=== PATIENT | male | born 1950 | race Two or more races ===

== ENCOUNTER 2018-04-09 05:37 | Inpatient (IN) | payer MEDICARE, MEDICAID ==
[~2018-04-09] VITALS: Ht 167.6 cm; Wt 54.4 kg
--- NOTE | 2018-04-09 05:40 | NUR ---
PT [id number] FROM [facility], STATES PT IS MORE ALTERED THAN NORMAL W/ HIGH FEVER. NO MEDS GIVEN AT FACILITY. PT IS INTUBATED AND ON OXYGEN, O2 SAT 96. PT IS NONRESPONSIVE. PT HAS GT TUBE AND STEELE CATHETER ON ARRIVAL. PT ATTEMPTING TO BITE UPPER EXTREMITIES, MULTIPLE SMALL ABRASIONS. PT IN GOWN AND PLACED ON MONITOR. WAITING MD EVALUATION
[2018-04-09] MEDS ORDERED: CEFTRIAXONE 1GM BAG (ER ONLY) 50 ML IV ONE (06:00)
--- NOTE | 2018-04-09 06:00 | NUR ---
MD AT BEDSIDE FOR EVALUATION
--- NOTE | 2018-04-09 06:10 | NUR ---
IV INITIATED ON RIGHT AC 18G. INTACT AND PATENT. LABS DRAWN FROM SITE. URINE COLLECTED. LAB CALLED FOR DISPERSION MIXER
[2018-04-09] MEDS ORDERED: CEFTRIAXONE 1 G VIAL ONE (06:25)
[2018-04-09 06:30] LABS: BASOPHILS % (AUTO) 0.3 % (0.0-2.0); HEMATOCRIT 33 % (39-51); HEMOGLOBIN 10.7 g/dL (13.5-17.5); LYMPHOCYTES % (AUTO) 18.8 % (20.0-44.0); MEAN CORPUSCULAR HGB CONC 33 g/dl (31.0-36.0); MEAN CORPUSCULAR VOLUME 104 fL (80-96); MONOCYTES # (AUTO) 0.7 /CMM (0.1-1.30); NEUTROPHILS % (AUTO) 73.9 % (43.0-81.0); PLATELET COUNT (AUTO) 127 /CMM (150-450); RDW COEFFICIENT OF VARIATION 20.2 (11.5-15.0); RED BLOOD CELL COUNT(AUTO) 3.15 MIL/uL (4.5-6.0); WHITE BLOOD COUNT (AUTO) 10.9 K/uL (4.3-11.0)
[2018-04-09] MEDS ORDERED: IV NS 0.9% 1,000 ML BAG IV ONE ×2 (06:30→07:30)
[2018-04-09 06:37] LABS: APPEARANCE,URINE CLOUDY (CLEAR); BILIRUBIN,URINE NEGATIVE (NEGATIVE); BLOOD, URINE 3+ Ery/uL (NEGATIVE); COLOR,URINE YELLOW (YELLOW); KETONES,URINE NEGATIVE (NEGATIVE); LEUKOCYTE ESTERASE ,URINE 3+ (NEGATIVE); NITRITE, URINE NEGATIVE (NEGATIVE); PROTEIN,URINE 2+ mg/dl (NEGATIVE); UGLUCOSE NEGATIVE (NEGATIVE); UROBILINOGEN,URINE 0.2 EU/dL (0.2)
[2018-04-09 06:41] LABS: CALCIUM, SERUM 9.8 mg/dL (8.5-10.1); CARBON DIOXIDE 24 mmol/L (21-32); CHLORIDE 106 mmol/L (98-107); CREATININE 1.8 mg/dL (0.6-1.3); GLUCOSE 136 mg/dL (74-106); POTASSIUM 4.5 mmol/L (3.5-5.1); SODIUM SERUM 140 mmol/L (136-145); UREA NITROGEN, BLOOD 34 mg/dL (7-18)
[2018-04-09 06:47] LABS: WBC,URINE 51-80 /HPF (0-3)
[2018-04-09 06:48] LABS: CALCIUM OXALATE CRYSTALS,UR Rare /HPF (None Seen); SQUAMOUS EPITHELIAL CELL,UR Rare /HPF (None Seen)
[2018-04-09 06:49] LABS: BACTERIA,URINE Moderate /HPF (None Seen)
[2018-04-09 06:53] LABS: INR 1.24 (0.87-1.13)
[2018-04-09 06:58] LABS: ALANINE AMINOTRANSFERASE 15 U/L (12-78); ALBUMIN 2.3 g/dL (3.4-5.0); ALKALINE PHOSPHATASE 142 U/L (46-116); ASPARTATE AMINOTRANSFERASE 25 U/L (15-37); BILIRUBIN,DIRECT 0.3 mg/dL (0.0-0.2); BILIRUBIN,TOTAL 0.8 mg/dL (0.2-1.0); TOTAL PROTEIN, SERUM 9.5 g/dL (6.4-8.2)
--- NOTE | 2018-04-09 07:18 | NUR ---
PT HYPOTENSIVE. MD AWARE
--- NOTE | 2018-04-09 07:22 | NUR ---
GAVE REPORT TO FEDERICO LE FOR LEENA
[2018-04-09 07:24] LABS: B-TYPE NATRIURETIC PEPTIDE 33948 PG/ML (0-125)
--- NOTE | 2018-04-09 07:30 | NUR ---
CALLED NURSING SUP FOR ROD BED.
--- NOTE | 2018-04-09 07:58 | NUR ---
ROD BED 110
[2018-04-09] MEDS ORDERED: LEVOFLOXACIN 750 MG /D5W 150ML 150 ML IV ONE ×2 (08:00→08:11)
--- NOTE | 2018-04-09 08:24 | NUR ---
REPORT GIVEN TO JASWANT LE FOR CONTINUATION OF CARE.
--- NOTE | 2018-04-09 08:30 | NUR ---
PATIENT TRANSPORTED TO 110 VIA ACLS PROTOCOL. RNJASWANT TO PROVIDE LEENA.
[2018-04-09 08:40] VITALS: BP 127/68
--- NOTE | 2018-04-09 08:40 | NUR ---
RN NOTES RECEIVED PT FROM ER IN ROOM 110, WITH TRACHEOSTOME , ON COOL AEROSOL , NON VERBAL ,RESTLESS , PULLING ON IV'S AND GT, DANILO SOFT WRIST PROTECTIVE RESTRAINS ON FOR PT SAFETY. RESPIRATION LABORED AND SHALLOW , DR HOLLIS NOTIFED, ABG ORDERED ,TRACH CARE DONE, O2 SAT 98%, ON TELE ST , HR IN 100'S , STEELE DRINING TO GRAVITY , ADMISSION SKIN AND WOUND PHOTO DONE, WOUND CONSULT ORDERED, GT CLAMPED AT THIS TIME, R AC IV SITE G 18 CLEAN AND DRY , SR UP x3, CALL LIGHT WITHIN EASY REACH, BED LOCKED AND IN LOWEST POSITION ,CONTINUE TO MONITOR.
[2018-04-09 09:00] VITALS: BP 127/68
[2018-04-09 10:09] LABS: ABG BASE EXCESS -6.8 mmol/L; ABG OXYGEN SATURATION 98.3 % (92.0-98.5); ABG PO2 145.3 mmHg (75.0-100.0); AaDO2 69.4 mmHg; COHb 0.5 % (0.5-1.5); MetHb 0.5 % (0.0-1.5); O2Hb 97.3 % (94.0-97.0); VENT MODE, BG 35% CA
[2018-04-09] MEDS ORDERED: MAGNESIUM HYDROXIDE 30 ML UDC PO PRN (10:30)
[2018-04-09] MEDS ORDERED: ZOLPIDEM TARTRATE 5 MG TABLET PO PRN (10:30)
[2018-04-09] MEDS ORDERED: ONDANSETRON HCL/PF 4 MG/2 ML VIAL IVP PRN (10:30)
[2018-04-09] MEDS ORDERED: Z GUARD REMEDY 2 OZ OINT TP PRN (10:30)
[2018-04-09] MEDS ORDERED: MAG HYDROX/AL HYDROX/SIMETH 30 ML UDC PO PRN (10:30)
[2018-04-09] MEDS ORDERED: ACETAMINOPHEN 325 MG TABLET PO PRN (10:30)
[2018-04-09] MEDS: IPRATROPIUM NEB FS 0.5 MG/2.5 ML AMPUL.NEB NEB SCH ×3 (10:35→19:50)
[2018-04-09] MEDS: ALBUTEROL HALF STRENGTH 1.25 MG/3 ML VIAL.NEB NEB SCH ×3 (10:35→19:50)
--- NOTE | 2018-04-09 10:40 | NUR ---
RT RECEIVED PT FROM ER TRACH ON CA 35% FIO2. SX WITH MOD TO LRG THK WAGNER SECRETIONS. ABG WAS DONE AND RELAYED RESULTS TO DR. HOLLIS AND RN DAE. PER MD, PLACED PT ON FIO2 OF 28%. INITIAL BREATHING TX WAS ORDERED AND GIVEN. PT TOLERATING CURRENT THERAPY. WILL CONTINUE TO MONITOR T/O SHIFT.
[2018-04-09] MEDS: IV NS 0.9% 1,000 ML IV PRN ×2 (11:21→20:00)
--- NOTE | 2018-04-09 11:30 | NUR ---
RN NOTES PT IS RESTLESS , HR IN 130'S, DR SANTO NOTIFED , EKG AND ATIVAN ORDERED.
[2018-04-09] MEDS: HYDROCODONE/APAP 5/325MG 1 EACH TABLET PO PRN (11:35)
[2018-04-09 12:00] VITALS: BP 141/99
[2018-04-09] MEDS ORDERED: LORAZEPAM INJ 2 MG/ML VIAL IV ONE (12:00)
[2018-04-09 16:00] VITALS: BP 102/54
--- NOTE | 2018-04-09 18:34 | NUR ---
RN NOTES NO DISTESS NOTED AT THIS TIME, HR IN 80'S , SR UP x3 CALL LIGHT WITHIN EASY REACH, STEELE DRINING TO GRAVITY, WILL ENDOSE TO INSTRUMENT WORKER NURSE FOR CONTINUITY OF CARE .
--- NOTE | 2018-04-09 19:35 | NUR ---
ROD RN NOTE PT RECEIVED IN BED SLEEPING. NOTED SLIGHTLY LETHARGIC BUT VERY RESTLESS. TRACH IN PLACE AND ON COOL AEROSOL SATURATING WELL. HOB ELEVATED. GT CLAMPED. ISOLATION PRECAUTIONS OBSERVED. ON ASPIRATION PRECAUTIONS. BILATERAL SOFT WRIST RESTRAINTS IN PLACE AND SECURED TO BED. CAP REFILL CHECKED AND CIRCULATION. WILL CONTINUE TO MONITOR.
[2018-04-09 20:00] VITALS: BP 104/53
--- NOTE | 2018-04-09 20:00 | NUR ---
RCVD PT ON COOL AEROSOL 28% 5L. Q6 BREATHING TX GIVEN , NO ADVERSE REACTION NOTED. SUCTIONED LARGE AMOUNT OF WAGNER THICK SECRETIONS. NO RESPIRATORY DISTRESS NOTED AT THIS TIME. WILL CONTINUE TO MONITOR.
[2018-04-10] VITALS: BP 123/61
[2018-04-10] MEDS: IPRATROPIUM NEB FS 0.5 MG/2.5 ML AMPUL.NEB NEB SCH ×4 (01:46→20:16)
[2018-04-10] MEDS: ALBUTEROL HALF STRENGTH 1.25 MG/3 ML VIAL.NEB NEB SCH ×4 (01:46→20:16)
[2018-04-10 04:00] VITALS: BP 140/68
[2018-04-10] MEDS: CEFTRIAXONE 1 G in IV D5W 50 ML IV SCH (05:02)
[2018-04-10] MEDS: HYDROCODONE/APAP 5/325MG 1 EACH TABLET PO PRN ×2 (05:03→12:02)
[2018-04-10] MEDS: IV NS 0.9% 1,000 ML IV PRN ×2 (06:03→17:13)
[2018-04-10 06:43] LABS: CALCIUM, SERUM 8.8 mg/dL (8.5-10.1); CREATININE 1.6 mg/dL (0.6-1.3); MAGNESIUM 1.9 mg/dL (1.8-2.4); PHOSPHORUS 2.8 mg/dL (2.5-4.9); POTASSIUM 3.8 mmol/L (3.5-5.1)
--- NOTE | 2018-04-10 07:00 | NUR ---
ROD RN INITIAL NOTES PT IN BED AWAKE, WITH STAGGERED BREATHING AND RESTLESS. ON 5L O2 COOL AEROSOL VIA TRACH. PT IS ON SOFT RESTRAINTS AND ATTEMPTING TO PULL AT LINES. ON TELE SR 92. IVF RUNNING THRU R AC WITH NO/SX OF INFECTION AT IV SITE. 300CC OF YELLOW CLEAR URINE DRAINING THRU F/C. SAFETY PRECAUTIONS IN PLACE. CALL LIGHT IN REACH. WILL CONT TO MONITOR.
[2018-04-10 07:04] LABS: BASOPHILS # (AUTO) 0.1 /CMM (0.0-0.2); BASOPHILS % (AUTO) 1.6 % (0.0-2.0); EOSINOPHILS % (AUTO) 2.2 % (0.0-6.0); HEMATOCRIT 26 % (39-51); HEMOGLOBIN 8.9 g/dL (13.5-17.5); LYMPHOCYTES % (AUTO) 22.2 % (20.0-44.0); MEAN CORPUSCULAR HGB CONC 34 g/dl (31.0-36.0); MEAN CORPUSCULAR VOLUME 102 fL (80-96); MONOCYTES # (AUTO) 0.4 /CMM (0.1-1.30); MONOCYTES % (AUTO) 9.1 % (2.0-12.0); NEUTROPHILS # (AUTO) 2.8 /CMM (1.8-8.9); NEUTROPHILS % (AUTO) 64.9 % (43.0-81.0); PLATELET COUNT (AUTO) 53 /CMM (150-450); RDW COEFFICIENT OF VARIATION 18.2 (11.5-15.0); RED BLOOD CELL COUNT(AUTO) 2.54 MIL/uL (4.5-6.0); WHITE BLOOD COUNT (AUTO) 4.4 K/uL (4.3-11.0)
--- NOTE | 2018-04-10 07:07 | NUR ---
ROD RN NOTE PT REMAINED STABLE DURING SHIFT. NO ACUTE DISTRESS NOTED. PT REMAINED RESTLESS AND AGITATED. BILATERAL SOFT WRIST RESTRAINTS REMAIN IN PLACE. RADIAL PULSES PALPABLE AND NO DISCOLORATION NOTED. ALL NEEDS ATTENDED TO PROMPTLY. SUCTIONED NEEDED. REPOSITIONED Q2H. PT BIT LIP AND NOTED WITH SLIGHT BLEEDING. ORAL CARE PERFORMED AND HOB ELEVATED. WILL ENDORSE TO NEXT SHIFT FOR CONTINUITY OF CARE.
[2018-04-10 08:00] VITALS: BP 149/83
[2018-04-10] MEDS: PANTOPRAZOLE 40 MG VIAL IV SCH (08:22)
--- NOTE | 2018-04-10 09:00 | NUR ---
COLLISION ESTIMATOR NOTES SPOKE WITH DR CELESTE. PT IS RESTLESS AND TACHYCARDIC. NO SEDATIVES PER
[2018-04-10] MEDS ORDERED: PANT40SU2 GT (09:37)
[2018-04-10] MEDS ORDERED: METO25TA6 GT (09:37)
[2018-04-10] MEDS ORDERED: BUSP10TA35 GT (09:37)
[2018-04-10] MEDS ORDERED: CRAN3875 GT (09:37)
[2018-04-10] MEDS ORDERED: INSU100V27 SQ (09:37)
[2018-04-10] MEDS ORDERED: SITA50TA GT (09:37)
[2018-04-10] MEDS ORDERED: ASCO500T9 GT (09:37)
[2018-04-10] MEDS ORDERED: AMIN30LI2 GT (09:37)
[2018-04-10] MEDS ORDERED: MULT-213 GT (09:37)
[2018-04-10] MEDS ORDERED: INSU100I30 SQ (09:37)
[2018-04-10] MEDS ORDERED: BACL10TA GT (09:37)
[2018-04-10] MEDS ORDERED: DOCU50LI GT (09:37)
[2018-04-10] MEDS ORDERED: AMLO5TAB7 GT (09:37)
[2018-04-10] MEDS ORDERED: ALPR0.25 PO (09:37)
[2018-04-10 10:46] LABS: BAND % (MANUAL) 2 % (0.0-5.0); LYMPHOCYTES % (MANUAL) 16 % (16-48); MONOCYTES % (MANUAL) 8 % (0-11.0); NEUTROPHILS % (MANUAL) 74 (42-76)
[2018-04-10 12:00] VITALS: BP 104/70
[2018-04-10 12:38] LABS: FREE PSA < 0.06 ng/mL (0.00-45); PROSTATE SPECIFIC ANTIGEN SCR 0.69 ng/mL (0.00-4.00)
[2018-04-10] MEDS: FLUCONAZOLE IN NS 100 MG in PREMIX 1 EA IV SCH ×2 (13:15)
[2018-04-10] MEDS: GLUCERNA 1.2 1,000 ML BOTTLE NG PRN (14:48)
[2018-04-10 16:00] VITALS: BP_SYST 104; BP_SYST 147; BP_DIAS 70; BP_DIAS 80
--- NOTE | 2018-04-10 16:04 | NUR ---
WEBLOGIC DEVELOPER NOTES [facility] REPORTED + MRSA NARES
--- NOTE | 2018-04-10 18:00 | NUR ---
RN NOTES NO SIGNIFICANT CHANGES NOTED ON THIS SHIFT, TOLERATING TF AT 20 CC/ HR VIA GT , WILL ENDORSE TO MECHATRONICS ENGINEER NURSE FOR CONTINUITY OF CARE
[2018-04-10 20:00] VITALS: BP 172/84
[2018-04-10] MEDS: MUPIROCIN OINT 2% 22 GM TUBE SCH (21:17)
[2018-04-11] VITALS: BP_SYST 149; BP_SYST 172; BP_DIAS 83; BP_DIAS 84
[2018-04-11] MEDS: HYDROCODONE/APAP 5/325MG 1 EACH TABLET PO PRN (00:52)
[2018-04-11] MEDS: IPRATROPIUM NEB FS 0.5 MG/2.5 ML AMPUL.NEB NEB SCH ×4 (02:19→20:08)
[2018-04-11] MEDS: ALBUTEROL HALF STRENGTH 1.25 MG/3 ML VIAL.NEB NEB SCH ×4 (02:19→20:08)
[2018-04-11 04:00] VITALS: BP 146/79
[2018-04-11] MEDS: CEFTRIAXONE 1 G in IV D5W 50 ML IV SCH (05:59)
[2018-04-11] MEDS: IV NS 0.9% 1,000 ML IV PRN ×2 (06:00→14:20)
--- NOTE | 2018-04-11 06:36 | NUR ---
RN NOTE PT REMAINS IN NO ACUTE DISTRESS IN BED. PT TOLERATED COOL AEROSOL SETTING WELL. PT DID NOT HAVE ANY SIGNIFICANT CHANGE IN CONDITION DURING SHIFT. ALL NEEDS MET, ALL ORDERS CARRIED OUT. WILL ENDORSE CARE TO AM RN FOR CONTINUITY OF CARE..
[2018-04-11 06:45] LABS: BASOPHILS % (AUTO) 0.6 % (0.0-2.0); EOSINOPHILS % (AUTO) 3.6 % (0.0-6.0); HEMATOCRIT 26 % (39-51); HEMOGLOBIN 8.5 g/dL (13.5-17.5); LYMPHOCYTES # (AUTO) 0.8 /CMM (0.8-4.8); LYMPHOCYTES % (AUTO) 18.3 % (20.0-44.0); MEAN CORPUSCULAR HGB CONC 33 g/dl (31.0-36.0); MEAN CORPUSCULAR VOLUME 104 fL (80-96); MONOCYTES # (AUTO) 0.5 /CMM (0.1-1.30); MONOCYTES % (AUTO) 11.7 % (2.0-12.0); NEUTROPHILS % (AUTO) 65.8 % (43.0-81.0); RDW COEFFICIENT OF VARIATION 19.7 (11.5-15.0); RED BLOOD CELL COUNT(AUTO) 2.48 MIL/uL (4.5-6.0); WHITE BLOOD COUNT (AUTO) 4.6 K/uL (4.3-11.0)
[2018-04-11 07:12] LABS: CALCIUM, SERUM 8.5 mg/dL (8.5-10.1); CREATININE 1.5 mg/dL (0.6-1.3); MAGNESIUM 1.8 mg/dL (1.8-2.4); PHOSPHORUS 2.8 mg/dL (2.5-4.9); POTASSIUM 3.3 mmol/L (3.5-5.1)
--- NOTE | 2018-04-11 07:15 | NUR ---
RN ROD INITIAL NOTES RECEIVED REPORT AND PATIENT FROM PM NURSE, PATIENT RESTING IN BED WITH NO ACUTE DISTRESS NOTED, ALL NEEDS MET, ALL SAFETY MEASURES INITIATED, ON TELE MON SR WITH HEART RATE 86 WITH OCC PVCS, OBTUNDED EYES OPEN AT TIMES, MOANS AND MUMBLES AT TIMES, TRACH COOL AEROSOL MD ORDERED SAT ABOVE 97%, NO SOB, STEELE CATH DRAINING URINE VIA GRAVITY, GTUBE FEEDING MD ORDERED NO RESIDUAL TOLERATING WELL, LT UPPER IV RIGHT ACC IV ALL INTACT AND PATENT NO INFILTRATION NOTED, ALL SAFETY MEASURES INITIATED, WILL CONTINUE TO MONITOR.
[2018-04-11 07:36] LABS: PLATELET COUNT (AUTO) 45 /CMM (150-450)
[2018-04-11 08:00] VITALS: BP_SYST 130; BP_SYST 138; BP_DIAS 85
[2018-04-11] MEDS: PANTOPRAZOLE 40 MG VIAL IV SCH (08:57)
[2018-04-11] MEDS: MUPIROCIN OINT 2% 22 GM TUBE SCH ×2 (08:59→20:55)
--- NOTE | 2018-04-11 09:10 | NUR ---
RN ROD NOTES UNABLE TO GET PATIENT TO STAY FLAT AND STILL TO DO CT OF HEAD AND ALSO PER MD NOTES TO LIMIT SEDATING MEDS WHERE POSSIBLE, WILL NOTIFY MD THAT IF PATIENT CANNOT HAVE SEDATING MEDS AND LAY FLAT AND STILL THEN CANNOT DO HEAD CT W/O CONTRAST.
--- NOTE | 2018-04-11 09:35 | NUR ---
RN ROD NOTES SPOKE WITH DR PETERSEN AND STATED HOLD OFF ON HEAD CT W/O CONTRAST AT THIS TIME SINCE PATIENT CANNOT LAY FLAT AND STAY STILL, WILL ASSESS LATER TO SEE IF PATIENT ABLE TO TOLERATE.
[2018-04-11] MEDS ORDERED: POTASSIUM CL. PREMIX PERIPHER. 50 ML IV SCH (09:45)
[2018-04-11 09:50] LABS: EOSINOPHILS % (MANUAL) 4 % (0-4); LYMPHOCYTES % (MANUAL) 14 % (16-48); MONOCYTES % (MANUAL) 12 % (0-11.0); NEUTROPHILS % (MANUAL) 70 (42-76)
[2018-04-11] MEDS ORDERED: POTASSIUM CHLORIDE 20 MEQ POWDER PACKET GT SCH (10:00)
[2018-04-11 12:00] VITALS: BP 144/78
--- NOTE | 2018-04-11 12:40 | NUR ---
WOUND CARE CONSULT: PT PRESENTS WITH DEEP TISSUE INJURIES (INTACT) TO RT BUTTOCK AND SACRUM WITH SURROUNDING SCARRING, AND SKIN TEARS TO ARMS, PRESENT ON ADMISSION. LEFT HIP SCARRING NOTED. PT IS EXTREMELY CONTRACTED WITH L KNEE NEAR FACE AND RT HEEL NEAR BUTTOCKS. ALL SKIN PROTECTION AND WOUND CARE RECOMMENDATIONS DISCUSSED WITH NURSING STAFF. DARRELL ISOFLEX LOW AIRLOSS BED TO BE PLACED. PT NOTED TO HAVE HUGE ABDOMINAL HERNIA AND G TUBE NOTED TO BE LEAKING. DEFER TO MD. WILL SEE PRN. IN AGREEMENT WITH PLAN OF CARE. CURRENT DEMARCUS SCORE IS 11. Addendum: 04/11/18 at 1243 by ASHLEY ALVAREZ WNDNU Amended: Links added.
--- NOTE | 2018-04-11 12:44 | NUR ---
RN ROD NOTES PATEINTS GTUBE SITE IS LEAKING TREMENDOUS AMOUNT OF YELLOW FLUID, CALLED DR SIFUENTES AND STATED NEEDS GI CONSULT, STOPPED FEEDINGS MD ORDERED, WILL ORDER GI CONSULT, WILL CONTINUE TO MONITOR.
[2018-04-11] MEDS: FLUCONAZOLE IN NS 100 MG in PREMIX 1 EA IV SCH ×2 (13:03)
[2018-04-11] MEDS: MEROPENEM 500 MG in IV NS 0.9% 50 ML IV SCH (14:21)
--- NOTE | 2018-04-11 14:48 | NUR ---
RN ROD NOTES SPOKE WITH PHARMACY AND NEEDS MD TO DO HOME MEDICATION RECONCILIATION, SPOKE WITH DR SIFUENTES AND STATED HE WILL DO IT, PLACED HOME MEDS LIST INSIDE CHART.
--- NOTE | 2018-04-11 14:49 | NUR ---
RN ROD NOTES SINCE PATEINTS GTUBE IS LEAKING WILL PLACE PATIENT ON NPO AT THIS TIME, AWAITING GI CONSULT ORDER.
[2018-04-11 16:00] VITALS: BP_SYST 143; BP_DIAS 75; BP_DIAS 86
[2018-04-11 16:16] LABS: *SPE A/G RATIO 0.5 (0.7-1.7); *SPE ALBUMIN 2.5 g/dL (2.9-4.4); *SPE ALPHA-1-GLOBULIN 0.2 g/dL (0.0-0.4); *SPE ALPHA-2-GLOBULIN 0.3 g/dL (0.4-1.0); *SPE BETA GLOBULIN 0.9 g/dL (0.7-1.3); *SPE GLOBULIN, TOTAL 5.1 g/dL (2.2-3.9); *SPE M-SPIKE Not Observed g/dL (Not Observed); *SPEGAMMA GLOBULIN 3.6 g/dL (0.4-1.8)
--- NOTE | 2018-04-11 18:27 | NUR ---
RN ROD ENDING NOTES PATEINT RESTING IN BED WITH NO ACUTE DISTRESS,ALL NEEDS MET, ALL SAFETY MEASURES INITIATED, BED BATH PROVIDED, NPO AT THIS TIME SINCE GTUBE IS LEAKING, GI CONSULT ORDERED, WOUND TX PROVIDED MD ORDERED, ALL DUE MEDS GIVEN, PT STABLE WILL ENDORSE TO PM NURSE.
[2018-04-11 20:00] VITALS: BP_SYST 151; BP_SYST 91; BP_DIAS 59; BP_DIAS 85
[2018-04-12] VITALS: BP 149/83
[2018-04-12] MEDS: ALBUTEROL HALF STRENGTH 1.25 MG/3 ML VIAL.NEB NEB SCH ×4 (01:51→19:44)
[2018-04-12] MEDS: IPRATROPIUM NEB FS 0.5 MG/2.5 ML AMPUL.NEB NEB SCH ×4 (01:51→19:44)
[2018-04-12] MEDS: MEROPENEM 500 MG in IV NS 0.9% 50 ML IV SCH ×2 (03:17→15:16)
[2018-04-12 04:00] VITALS: BP 135/77
[2018-04-12 06:42] LABS: CALCIUM, SERUM 8.4 mg/dL (8.5-10.1); CREATININE 1.5 mg/dL (0.6-1.3); MAGNESIUM 1.6 mg/dL (1.8-2.4); PHOSPHORUS 2.3 mg/dL (2.5-4.9); POTASSIUM 3.6 mmol/L (3.5-5.1)
[2018-04-12 07:22] LABS: HEMATOCRIT 25 % (39-51); HEMOGLOBIN 8.4 g/dL (13.5-17.5); MEAN CORPUSCULAR HGB CONC 33 g/dl (31.0-36.0); MEAN CORPUSCULAR VOLUME 105 fL (80-96)
[2018-04-12 07:23] LABS: RDW COEFFICIENT OF VARIATION 19.4 (11.5-15.0)
[2018-04-12 07:25] LABS: BASOPHILS % (AUTO) 0.4 % (0.0-2.0); EOSINOPHILS % (AUTO) 0.8 % (0.0-6.0); LYMPHOCYTES # (AUTO) 0.8 /CMM (0.8-4.8); LYMPHOCYTES % (AUTO) 9.4 % (20.0-44.0); MONOCYTES # (AUTO) 0.5 /CMM (0.1-1.30); NEUTROPHILS # (AUTO) 6.7 /CMM (1.8-8.9); NEUTROPHILS % (AUTO) 83.4 % (43.0-81.0); PLATELET COUNT (AUTO) 41 /CMM (150-450)
[2018-04-12 08:00] VITALS: BP 131/70
[2018-04-12] MEDS: GLUCERNA 1.2 1,000 ML BOTTLE NG PRN (10:00)
[2018-04-12] MEDS: MUPIROCIN OINT 2% 22 GM TUBE SCH ×2 (10:00→22:37)
[2018-04-12] MEDS: PANTOPRAZOLE 40 MG VIAL IV SCH (10:00)
[2018-04-12] MEDS ORDERED: Magnesium 1GM/D5W 100ML PREMIX 100 ML IV SCH (10:16)
[2018-04-12 10:30] LABS: EOSINOPHILS % (MANUAL) 1 % (0-4); LYMPHOCYTES % (MANUAL) 5 % (16-48); MONOCYTES % (MANUAL) 7 % (0-11.0); NEUTROPHILS % (MANUAL) 87 (42-76)
[2018-04-12 12:00] VITALS: BP 130/70
[2018-04-12] MEDS: FLUCONAZOLE IN NS 100 MG in PREMIX 1 EA IV SCH ×2 (13:31)
[2018-04-12 16:00] VITALS: BP_SYST 134; BP_SYST 93; BP_DIAS 60; BP_DIAS 70
[2018-04-12] MEDS ORDERED: NEUTRA PHOS 1 POWD.PACKET GT ONE (16:00)
--- NOTE | 2018-04-12 19:15 | NUR ---
ROD NOTES RECEIVED PT.ON COOL AEROSOL 28%,SAT [id number]%.SUCTIONED FOR MODERATE THICK YELLOW TO PINK-TINGED SECRETIONS.ON TUBE FEEDING OF GLUCERNA AT 30 ML /HR WILL INC IN 4HRS TO 40ML/HR.
[2018-04-12 20:00] VITALS: BP 141/77
[2018-04-13] VITALS (7 sets, daily range): BP systolic 128–149; BP diastolic 45–74
--- NOTE | 2018-04-13 | NUR ---
ROD NOTES FEEDING INC TO 40ML/HR AND WILL ATTEMPT TO REACH GOAL OF 50ML/HR
[2018-04-13] MEDS: IPRATROPIUM NEB FS 0.5 MG/2.5 ML AMPUL.NEB NEB SCH ×4 (01:18→19:58)
[2018-04-13] MEDS: ALBUTEROL HALF STRENGTH 1.25 MG/3 ML VIAL.NEB NEB SCH ×4 (01:18→19:58)
[2018-04-13] MEDS: MEROPENEM 500 MG in IV NS 0.9% 50 ML IV SCH ×2 (03:09→15:58)
--- NOTE | 2018-04-13 06:00 | NUR ---
ROD NOTES TOLERATING TF WELL,NOW AT 50ML/HR GOAL
[2018-04-13 07:07] LABS: CALCIUM, SERUM 8.2 mg/dL (8.5-10.1); CREATININE 1.6 mg/dL (0.6-1.3); MAGNESIUM 1.8 mg/dL (1.8-2.4); PHOSPHORUS 2.6 mg/dL (2.5-4.9)
--- NOTE | 2018-04-13 07:30 | NUR ---
ROD RN OPENING NOTE RECEIVED REPORT FROM PM NURSE.PATIENT IS ALERT.ABLE TO MOUTH WORDS.ON COOL AEROSOL.NO SOB NO DISTRESS NOTED AT THIS TIME.DENIED CHEST PAIN.ON TELE MONITOR SR 83.IV ON JAIR ,INTACT AND PATENT.ONGOING 1/2NS WITH KCL AT 75CC/HR.ON GTF.STEELE CATH DARNING CLEAR YELLOW URINE.BED IS LOCKED AND IN LOW POSITION.CALL LIGHT IN REACH.HOB ELEVATED.SRX3.WILL CONTINUE TO MONITOR.
[2018-04-13 07:40] LABS: HEMOGLOBIN 8.1 g/dL (13.5-17.5); RED BLOOD CELL COUNT(AUTO) 2.27 MIL/uL (4.5-6.0); WHITE BLOOD COUNT (AUTO) 6.4 K/uL (4.3-11.0)
[2018-04-13 07:41] LABS: HEMATOCRIT 24 % (39-51); MEAN CORPUSCULAR HGB CONC 33 g/dl (31.0-36.0); MEAN CORPUSCULAR VOLUME 107 fL (80-96); RDW COEFFICIENT OF VARIATION 19.3 (11.5-15.0)
[2018-04-13 07:43] LABS: BASOPHILS % (AUTO) 0.4 % (0.0-2.0); EOSINOPHILS % (AUTO) 2.2 % (0.0-6.0); LYMPHOCYTES # (AUTO) 0.9 /CMM (0.8-4.8); LYMPHOCYTES % (AUTO) 13.8 % (20.0-44.0); MONOCYTES # (AUTO) 0.4 /CMM (0.1-1.30); MONOCYTES % (AUTO) 6.6 % (2.0-12.0); NEUTROPHILS # (AUTO) 4.9 /CMM (1.8-8.9); PLATELET COUNT (AUTO) 36 /CMM (150-450)
--- NOTE | 2018-04-13 08:00 | NUR ---
ROD RN NOTE GOT CALL FROM LAB ,GOT REPORT PLATELET 36.ARAMIS HAMILTON FOR JOSE SIFUENTES MADE AWARE.NO SIGNS AND SYMPTOMS OF BLEEDING NOTED.SEEN BY ARAMIS HAMILTON UPDATED ALL LABS AND PATIENT CONDITION.WILL CONTINUE TO MONITOR
[2018-04-13] MEDS: PANTOPRAZOLE 40 MG VIAL IV SCH (08:22)
[2018-04-13] MEDS: MUPIROCIN OINT 2% 22 GM TUBE SCH ×2 (08:23→21:13)
[2018-04-13] MEDS ORDERED: FLUCONAZOLE (100 MG) 100 MG TABLET PO SCH (09:00)
[2018-04-13 10:01] LABS: BAND % (MANUAL) 1 % (0.0-5.0); EOSINOPHILS % (MANUAL) 2 % (0-4); LYMPHOCYTES % (MANUAL) 10 % (16-48); MONOCYTES % (MANUAL) 1 % (0-11.0); NEUTROPHILS % (MANUAL) 86 (42-76)
[2018-04-13] MEDS ORDERED: MERO500V3 IV (10:52)
[2018-04-13] MEDS ORDERED: FLUC200T GT (10:52)
--- NOTE | 2018-04-13 11:27 | NUR ---
METAL ROLLING MILL OPERATOR NOTES GOT CALL FROM [facility] ,SPOKE TO MARIAMDEENA NOTIFIED POSITIVE BLOOD CULTURE,CRE POSITIVE,K.PNEUMONIAE. AWARE.WAITING FOR ID CONSULT. Addendum: 04/13/18 at 1942 by YULIANA COSBY RN RDO STATUS
[2018-04-13] MEDS: HYDROCODONE/APAP 5/325MG 1 EACH TABLET PO PRN (12:33)
--- NOTE | 2018-04-13 17:00 | NUR ---
BOTTOM CRANE OPERATOR NOTE SEEN BY .NOTIFIED PATIENT CONDITION AND LABS.POSITIVE CRE.GOT NEW ORDERS.GOT NEW ORDER TO CALL MICROBIOLOGY AND TEST SENSITIVITY TO COLISTIMETHATE.CALL MADE TO SHRUTHIPrashant SPOKE TO CHRISTINE,TOLD THAT MICROBIOLOGY CLOSED TODAY.SHE WILL ENDORSE TO UPCOMING SHIFT.JOSE GRACIA MADE AWARE.HOLDING DISCHARGE ORDER. Addendum: 04/13/18 at 1942 by YULIANA COSBY RN ROD STATUS
[2018-04-13] MEDS: COLISTIMETHATE SODIUM 100 MG in IV NS 0.9% 50 ML IV SCH (18:40)
--- NOTE | 2018-04-13 19:34 | NUR ---
TD RN NOTES RECEIVED PT ON BED,A/O X1. OBTUNDED. ON COOL AEROSOL 5LPM SATURATING 100%. NO RESPIRATORY DISTRESS NOTED. ON GTUBE FEEDING NO RESIDUAL AT THIS TIME. IV ACCESS ON ISAIAH G22 AND RAC #18 WITH IV FLUID 1/2NS WITH 20 MEQ KCI RUNNING @ 75CC/HR RUNNING WELL. HEAD OF BED ELEVATED. SIDE RAILS UP. CALL LIGHT WITHIN REACH. BED ALARM ON. WILL CONTINUE TO MONITOR PT CLOSELY.
--- NOTE | 2018-04-13 19:38 | NUR ---
ROD RN CLOSING NOTE PATIENT IS ALERT.ABLE TO MOUTH WORDS.ON COOL AEROSOL.NO SOB NO DISTRESS NOTED AT THIS TIME.DENIED CHEST PAIN.ON TELE MONITOR SR 82.IV ON JAIR ,INTACT AND PATENT.ONGOING 1/2NS WITH KCL AT 75CC/HR.ON GTF.STEELE CATH DARNING CLEAR YELLOW URINE.BED IS LOCKED AND IN LOW POSITION.CALL LIGHT IN REACH.HOB ELEVATED.SRX3.ENDORSED TO PM NURSE FOR LEENA.
[2018-04-13] MEDS: GLUCERNA 1.2 1,000 ML BOTTLE NG PRN (21:28)
[2018-04-14] VITALS: BP 133/68
[2018-04-14] MEDS: ALBUTEROL HALF STRENGTH 1.25 MG/3 ML VIAL.NEB NEB SCH ×4 (00:47→19:10)
[2018-04-14] MEDS: IPRATROPIUM NEB FS 0.5 MG/2.5 ML AMPUL.NEB NEB SCH ×4 (00:47→19:10)
[2018-04-14 04:00] VITALS: BP 130/64
[2018-04-14] MEDS: COLISTIMETHATE SODIUM 100 MG in IV NS 0.9% 50 ML IV SCH ×2 (05:15→18:19)
[2018-04-14] MEDS: HYDROCODONE/APAP 5/325MG 1 EACH TABLET PO PRN ×3 (05:39→18:19)
[2018-04-14 05:59] LABS: CREATININE 1.5 mg/dL (0.6-1.3); MAGNESIUM 1.8 mg/dL (1.8-2.4); PHOSPHORUS 2.5 mg/dL (2.5-4.9); POTASSIUM 4.8 mmol/L (3.5-5.1)
[2018-04-14 06:07] LABS: BASOPHILS % (AUTO) 0.3 % (0.0-2.0); EOSINOPHILS % (AUTO) 7.2 % (0.0-6.0); HEMATOCRIT 24 % (39-51); HEMOGLOBIN 7.9 g/dL (13.5-17.5); LYMPHOCYTES # (AUTO) 0.9 /CMM (0.8-4.8); LYMPHOCYTES % (AUTO) 18.9 % (20.0-44.0); MEAN CORPUSCULAR HGB CONC 33 g/dl (31.0-36.0); MEAN CORPUSCULAR VOLUME 105 fL (80-96); MONOCYTES # (AUTO) 0.3 /CMM (0.1-1.30); NEUTROPHILS # (AUTO) 3.1 /CMM (1.8-8.9); NEUTROPHILS % (AUTO) 66.6 % (43.0-81.0); PLATELET COUNT (AUTO) 65 /CMM (150-450); RED BLOOD CELL COUNT(AUTO) 2.25 MIL/uL (4.5-6.0); WHITE BLOOD COUNT (AUTO) 4.6 K/uL (4.3-11.0)
--- NOTE | 2018-04-14 07:14 | NUR ---
TD RN NOTES NO ACUTE CHANGES NOTED DURING THE SHIFT. PROVIDED COMFORT AND SAFETY. ENDORSE TO THE AM NURSE FOR CONTINUITY OF CARE.
--- NOTE | 2018-04-14 07:20 | NUR ---
ROD RN OPENING NOTE RECEIVED REPORT FROM PM NURSE.PATIENT IS ALERT.ABLE TO MOUTH WORDS.ON COOL AEROSOL.NO SOB NO DISTRESS NOTED AT THIS TIME.DENIED CHEST PAIN.ON TELE MONITOR SR 80.IV ON JAIR #22,RAC#18 ,INTACT AND PATENT.ONGOING 1/2NS WITH KCL AT 75CC/HR.ON GTF.STEELE CATH DARNING CLEAR YELLOW URINE.BED IS LOCKED AND IN LOW POSITION.CALL LIGHT IN REACH.HOB ELEVATED.SRX3.WILL CONTINUE TO MONITOR.
[2018-04-14 07:27] LABS: EOSINOPHILS % (MANUAL) 8 % (0-4); LYMPHOCYTES % (MANUAL) 16 % (16-48); MONOCYTES % (MANUAL) 4 % (0-11.0); NEUTROPHILS % (MANUAL) 72 (42-76)
[2018-04-14 08:00] VITALS: BP 112/61
[2018-04-14] MEDS: PANTOPRAZOLE 40 MG VIAL IV SCH (08:48)
[2018-04-14] MEDS: MUPIROCIN OINT 2% 22 GM TUBE SCH ×2 (08:48→20:39)
--- NOTE | 2018-04-14 09:00 | NUR ---
ROD RN NOTES CALL MADE TO [facility] MICROBIOLOGY.SPOKE TO KENISHA,TOLD THAT UNABLE TO DO SENSITIVITY YESTERDAY BECAUSE MICROBIOLOGY CLOSED.WILL RUN TEST TODAY WILL HAVE RESULT TOMORROW MORNING.
[2018-04-14 12:00] VITALS: BP 112/58
--- NOTE | 2018-04-14 13:13 | NUR ---
ROD RN NOTES CALL MADE TO [facility].TOLD THAT THEY DONT HAVE SPECIALTY MATTR[facility] AVAILABLE NOW.WAITING FOR DELIVERY.
--- NOTE | 2018-04-14 14:07 | NUR ---
ROD RN NOTES CALL MADE TO [facility] PER ORDER TO REPORT SENSITIVITY OF KLEBSIELLA,BLOOD CULTURE ISOLATE AND ESBL E.COLI URINE CULTURE ISOLATE SENSITIVITY TO COLISTIN.SPOKE TO KENISHA,SAID RESULT WILL BE READY TOMORROW MORNING.
[2018-04-14 16:00] VITALS: BP 106/64
--- NOTE | 2018-04-14 19:21 | NUR ---
ROD RN CLOSING NOTE PATIENT IS ALERT.ABLE TO MOUTH WORDS.ON COOL AEROSOL.NO SOB NO DISTRESS NOTED AT THIS TIME.DENIED CHEST PAIN.ON TELE MONITOR SR 82.IV ON JAIR #22,RAC#18 ,INTACT AND PATENT.ONGOING 1/2NS WITH KCL AT 75CC/HR.ON GTF.STEELE CATH DARNING CLEAR YELLOW URINE.BED IS LOCKED AND IN LOW POSITION.CALL LIGHT IN REACH.HOB ELEVATED.SRX3.NOTED WITH DARK BROWN STOOL. MADE AWARE.GOT NEW ORDER FOR STOOL FOR OB .ENDORSED TO PM NURSE .SEEN BY MADE AWARE THAT SENSITIVITY RESULT WILL BE READY TOMORROW MORNING.
[2018-04-14 20:00] VITALS: BP 109/64
--- NOTE | 2018-04-14 20:11 | NUR ---
ROD RN OPENING NOTES REPORT RECEIVED FROM DONI LE. PATIENT A/A/O X2, ABLE TO MOUTH WORDS & MAKE SOME NEEDS KNOWN. BREATHING EVEN & UNLABORED W/ TRACH INTACT & TOLERATING COOL AEROSOL @ 28% W/ 5L O2. ON TELE W/ SINUS RHYTHM, HR 70. NO RESPIRATORY DISTRESS NOTED. RIGHT UPPER ARM IV #22 INTACT & PATENT W/ DRESSING CDI & IVF 1/2 NS W/ 20 MEQ KCL INFUSING WELL @ 75 ML/HR. G-TUBE PATENT & FLUSHING WELL. GTF GLUCERNA RUNNING @ 50 ML/HR W/ NO RESIDUAL NOTED @ THIS TIME. STEELE CATH DRAINING YELLOW URINE. NO S/S OF PAIN OR DISCOMFORT @ THIS TIME. SAFETY MEASURES IN PLACE W/ SIDE RAILS UP & BED LOCKED & IN LOWEST POSITION. WILL CONTINUE TO MONITOR.
[2018-04-14] MEDS: GLUCERNA 1.2 1,000 ML BOTTLE NG PRN (21:45)
[2018-04-15] VITALS: BP 109/67
[2018-04-15] MEDS: IPRATROPIUM NEB FS 0.5 MG/2.5 ML AMPUL.NEB NEB SCH ×3 (01:48→12:52)
[2018-04-15] MEDS: ALBUTEROL HALF STRENGTH 1.25 MG/3 ML VIAL.NEB NEB SCH ×3 (01:48→12:52)
[2018-04-15 04:00] VITALS: BP 104/60
[2018-04-15] MEDS: HYDROCODONE/APAP 5/325MG 1 EACH TABLET PO PRN (04:30)
[2018-04-15] MEDS ORDERED: IV PREMIX 0.45% NS + KCL 1,000 ML IV ONE (04:36)
[2018-04-15] MEDS: COLISTIMETHATE SODIUM 100 MG in IV NS 0.9% 50 ML IV SCH (05:36)
[2018-04-15 08:00] VITALS: BP_SYST 109; BP_SYST 137; BP_DIAS 53; BP_DIAS 74
[2018-04-15] MEDS: MUPIROCIN OINT 2% 22 GM TUBE SCH (08:33)
[2018-04-15] MEDS: PANTOPRAZOLE 40 MG VIAL IV SCH (08:33)
[2018-04-15 09:07] LABS: OCCULT BLOOD STOOL POSITIVE (NEGATIVE)
--- NOTE | 2018-04-15 11:34 | NUR ---
RN NOTE 0720: received patient awake, with trache to cool aerosol. No respiraotry distress noted at this time. With GT intact, feeding tolerated well.. Kept HOB elevated. SR on the monitor. Remained afebrile. On ATB therapy for PNA and UTI, no ASE noted at this time. PIV intact, IVF infusing as ordered. Land cath intact, noted with jules colored urine drained to BSD. 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 1030: S/E by Dr. Burnette education assistant/student, no new orders from MD at this time. 1130: No any significant changes noted at this time. Kept clean, warm and dry. Needs attended.
[2018-04-15 12:00] VITALS: BP 112/64
--- NOTE | 2018-04-15 15:59 | NUR ---
RN NOTE Report give to Azra LE, all questions and concerns were answered. Faxed med list as requested. Patient VSS.
[2018-04-15 16:00] VITALS: BP 108/61
--- NOTE | 2018-04-15 17:40 | NUR ---
RN NOTE Ambulanz here, 2 personnels for PU, waiting ATB dose to finish. PIV kept in for ATB IV therapy to continue. Isolation prec maintained and observed. Called Daughter x3, left message to make aware re: the transfer. No call back. Skin assessment done, taken pictures and attached to chart. remained afebrile.
--- NOTE | 2018-04-15 17:55 | NUR ---
RN NOTE Discharged patient in good condition. VSS. No any significant changes noted. Kept clean, warm and dry. Needs attended.
[2018-04-15] MEDS ORDERED: COLISTIMETHATE SODIUM 75 MG in IV NS 0.9% 50 ML IV SCH (18:00)
--- NOTE | 2018-04-15 19:09 | NUR ---
RN NOTE Dr. Burnette called and added ATB Amanda and Meghan, faxed to [facility], spoke with Azra LE and verified re: fax and new order.
== END 2018-04-15 18:00 | DRG 871 ==
LOC: ER 05:39 → TELE-TD 08:34 → TELE1 04-15 13:04
PROVIDERS: ADMIT Student in an Organized Health Care Education/Training Program; ATTEND Student in an Organized Health Care Education/Training Program
DX: A41.9 Sepsis, unspecified organism (principal); J15.0 Pneumonia due to Klebsiella pneumoniae; G92 Toxic encephalopathy; I21.A1 Myocardial infarction type 2; R53.2 Functional quadriplegia; I50.33 Acute on chronic diastolic (congestive) heart failure; N39.0 Urinary tract infection, site not specified; D68.4 Acquired coagulation factor deficiency; K76.6 Portal hypertension; J96.10 Chronic respiratory failure, unspecified whether with hypoxia or hypercapnia; I13.0 Hypertensive heart and chronic kidney disease with heart failure and stage 1 through stage 4 chronic kidney disease, or unspecified chronic kidney disease; E87.0 Hyperosmolality and hypernatremia; E87.2 Acidosis; K21.9 Gastro-esophageal reflux disease without esophagitis; Z93.1 Gastrostomy status; N18.9 Chronic kidney disease, unspecified; Z93.0 Tracheostomy status; Z86.73 Personal history of transient ischemic attack (TIA), and cerebral infarction without residual deficits; R13.10 Dysphagia, unspecified; Z99.81 Dependence on supplemental oxygen; D53.1 Other megaloblastic anemias, not elsewhere classified; D69.59 Other secondary thrombocytopenia; E11.22 Type 2 diabetes mellitus with diabetic chronic kidney disease; E11.65 Type 2 diabetes mellitus with hyperglycemia; E83.42 Hypomagnesemia; K70.9 Alcoholic liver disease, unspecified; Z22.322 Carrier or suspected carrier of Methicillin resistant Staphylococcus aureus; Z74.01 Bed confinement status; Z16.12 Extended spectrum beta lactamase (ESBL) resistance; K43.9 Ventral hernia without obstruction or gangrene; F41.9 Anxiety disorder, unspecified; E87.6 Hypokalemia; E86.0 Dehydration; E86.1 Hypovolemia; E83.52 Hypercalcemia; E83.39 Other disorders of phosphorus metabolism; E88.09 Other disorders of plasma-protein metabolism, not elsewhere classified
CPT/HCPCS: 31720; 36415; 36600; 70450-TC; 71045-TC; 80048-TC; 80076-TC; 81000-TC; 82272-TC; 82652; 82803-TC; 83605-TC; 83615-TC; 83735-TC; 83880; 84100-TC; 84153-TC; 84154-TC; 84155; 84165; 84484-TC; 85025-TC; 85730-TC; 87040-TC; 87081-TC; 87086-TC; 87186-TC; 87400; 93307-TC; 94640-TC; 94760-TC; A4216; A4606; A6402; A6403; C9113; J0696; J0770; J1450; J1956; J2060; J2185; J3475; J3480; J3490; J7030; J7060; Z7610

== ENCOUNTER 2018-07-02 11:10 | Inpatient (IN) | payer MEDICARE, MEDICAID ==
[2018-07-02] VITALS (26 sets, daily range): BP systolic 77–96; BP diastolic 44–54
[~2018-07-02] VITALS: Ht 157.5 cm; Wt 53.1 kg
[~2018-07-02 11:10] MED LIST: ACET-73 GT; ACET325T53 GT; ALPR0.25 PO; AMLO5TAB7 GT; BACL10TA GT; BLOO-668 IN; CHLO473M3 MM; FLUC100T8 PO; INSU100I30 SQ; INSU100V27 SQ; LACT10SO GT; METO25TA6 GT; NUT.237L30 GT; PANT40TA2 PO
--- NOTE | 2018-07-02 11:11 | NUR ---
PT BIBPA FROM [facility] SENT BY [facility] FOR ABNORMAL LABS: WBC=16.91, BUN=99, K=5.7. PT ON MONITOR IN BED 5. WILL CONTINUE TO MONITOR.
[2018-07-02] MEDS ORDERED: MEROPENEM 1 G in IV NS 0.9% 100 ML IV ONE (11:30)
[2018-07-02] MEDS ORDERED: IV NS 0.9% 1,000 ML BAG IV ONE (11:30)
[2018-07-02] MEDS ORDERED: LEVOFLOXACIN 750 MG /D5W 150ML 150 ML IV ONE ×2 (11:30→12:07)
[2018-07-02 11:39] LABS: BASOPHILS % (AUTO) 0.3 % (0.0-2.0); EOSINOPHILS % (AUTO) 7.2 % (0.0-6.0); HEMATOCRIT 29 % (39-51); HEMOGLOBIN 9.7 g/dL (13.5-17.5); LYMPHOCYTES % (AUTO) 10.3 % (20.0-44.0); MEAN CORPUSCULAR HGB CONC 33 g/dl (31.0-36.0); MEAN CORPUSCULAR VOLUME 105 fL (80-96); MONOCYTES % (AUTO) 9.7 % (2.0-12.0); NEUTROPHILS # (AUTO) 7.3 /CMM (1.8-8.9); NEUTROPHILS % (AUTO) 72.5 % (43.0-81.0); PLATELET COUNT (AUTO) 66 /CMM (150-450); RED BLOOD CELL COUNT(AUTO) 2.78 MIL/uL (4.5-6.0)
[2018-07-02 11:58] LABS: ALANINE AMINOTRANSFERASE 19 U/L (12-78); ALBUMIN 1.9 g/dL (3.4-5.0); ALKALINE PHOSPHATASE 161 U/L (46-116); ASPARTATE AMINOTRANSFERASE 28 U/L (15-37); BILIRUBIN,DIRECT 0.3 mg/dL (0.0-0.2); BILIRUBIN,TOTAL 0.6 mg/dL (0.2-1.0); CALCIUM, SERUM 11.5 mg/dL (8.5-10.1); CARBON DIOXIDE 27 mmol/L (21-32); CHLORIDE 107 mmol/L (98-107); CREATININE 3.8 mg/dL (0.6-1.3); GLUCOSE 172 mg/dL (74-106); POTASSIUM 6.1 mmol/L (3.5-5.1); SODIUM SERUM 141 mmol/L (136-145); TOTAL PROTEIN, SERUM 8.6 g/dL (6.4-8.2)
[2018-07-02 12:00] LABS: UREA NITROGEN, BLOOD 116 mg/dL (7-18)
[2018-07-02] MEDS ORDERED: FERR300L GT (12:02)
[2018-07-02] MEDS ORDERED: MAGN400O6 GT (12:02)
[2018-07-02] MEDS ORDERED: VIT500LI GT (12:02)
[2018-07-02] MEDS ORDERED: PANT40SU2 GT (12:02)
[2018-07-02] MEDS ORDERED: BISA10SU8 RC (12:02)
[2018-07-02] MEDS ORDERED: ACET650S26 GT (12:02)
[2018-07-02] MEDS ORDERED: NA P133E RC (12:02)
[2018-07-02] MEDS ORDERED: MULT-447 GT (12:02)
[2018-07-02] MEDS ORDERED: IPRA3AMP23 IH ×2 (12:02)
[2018-07-02] MEDS ORDERED: AMIN30LI27 GT (12:02)
[2018-07-02 12:12] LABS: LYMPHOCYTES % (MANUAL) 13 % (16-48); MONOCYTES % (MANUAL) 11 % (0-11.0); NEUTROPHILS % (MANUAL) 76 (42-76)
--- NOTE | 2018-07-02 12:16 | NUR ---
CALLED Light Extraction SPLITTER HEAD WAS PAGED.
--- NOTE | 2018-07-02 12:22 | NUR ---
URINE COLLECTED AND SENT TO LAB
[2018-07-02 12:29] LABS: APPEARANCE,URINE Cloudy (CLEAR); BILIRUBIN,URINE Negative (NEGATIVE); BLOOD, URINE Large Ery/uL (NEGATIVE); COLOR,URINE Yellow (YELLOW); KETONES,URINE Negative (NEGATIVE); LEUKOCYTE ESTERASE ,URINE Large (NEGATIVE); NITRITE, URINE Negative (NEGATIVE); PROTEIN,URINE 100 mg/dl (NEGATIVE); UGLUCOSE Negative (NEGATIVE); UROBILINOGEN,URINE 0.2 EU/dL (0.2)
[2018-07-02 12:38] LABS: RBC,URINE 15-20 /HPF (0-2)
[2018-07-02 12:39] LABS: BACTERIA,URINE Many /HPF (None Seen); SQUAMOUS EPITHELIAL CELL,UR Few /HPF (None Seen); WBC,URINE 20-50 /HPF (0-3)
--- NOTE | 2018-07-02 13:18 | NUR ---
REPORT GIVEN TO MIMI HUSTON FOR LEENA
[2018-07-02] MEDS ORDERED: IV NS 0.9% 1,000 ML IV ONE (14:00)
--- NOTE | 2018-07-02 14:03 | NUR ---
Addendum: IVF;Levaquin 750 MG infusing while transfer to floor; PIV # 20 LFA; port # 1
--- NOTE | 2018-07-02 14:04 | NUR ---
repoprt given to MIMI Wu
--- NOTE | 2018-07-02 14:20 | NUR ---
ICU/RN: RECEIVED REPORT FROM LUANNE. PT PLACED IN ROOM 258. PT OPENS EYES, DOES NOT FOLLOW COMMANDS, REACTS TO PAINFUL STIMULI. PT ADMITTED FROM SNF WITH TRACH. PT PLACED ON COOL AEROSOL 5 LITERS. NO ACUTE RESPIRATORY DISTRESS NOTED AT THIS TIME. SINUS ON TELE. LOW TEMP OF 96.9 NOTED, BEAR HUGGER APPLIED. MULTIPLE WOUNDS/DTI'S NOTED. WOUND PHOTOS TAKEN. ISOFLEX TURNED OF, WOUND CONSULT AND DIETARY CONSULT ORDERED. LARGE LOOSE BOWEL MOVEMENT NOTED. BED BATH GIVEN. ALL NEEDS WILL BE ATTENDED TO, SAFETY MEASURES TAKEN, BED IN LOW POSITION, SIDE RAILS UP, CALL LIGHT WITHIN REACH. WILL CONTINUE CARE.
[2018-07-02] MEDS ORDERED: FEE PK DOSING 1 MIN EA MC ONE (14:42)
[2018-07-02] MEDS: ALBUTEROL HALF STRENGTH 1.25 MG/3 ML VIAL.NEB NEB SCH ×2 (16:14→19:36)
[2018-07-02] MEDS: IPRATROPIUM NEB FS 0.5 MG/2.5 ML AMPUL.NEB NEB SCH ×2 (16:14→19:36)
[2018-07-02] MEDS: VANCOMYCIN 0.75 GM in IV D5W 250 ML IV SCH (16:34)
--- NOTE | 2018-07-02 16:45 | NUR ---
ICU/RN: CRITICAL LABS RECEIVED CRITICAL LAB FOR LACTIC ACID OF 2.6. MD INFORMED. NO NEW ORDERS. LESS THEN PREVIOUS.
[2018-07-02] MEDS ORDERED: MEROPENEM 1 G in IV NS 0.9% 100 ML IV SCH ×2 (18:00→21:00)
[2018-07-02] MEDS: MEROPENEM 500 MG in IV NS 0.9% 100 ML IV SCH (18:44)
[2018-07-02] MEDS ORDERED: NOREPINEPHRINE 8 MG in IV D5W 500 ML IV PRN (19:00)
--- NOTE | 2018-07-02 19:12 | NUR ---
ICU/RN: ENDING NOTES,AM REPORT WILL BE ENDORSED TO NIGHT NURSE. AT BEDSIDE. LOW BP NOTED. PER MD WE ARE TO KEEP MAP>60. LEVOPHED ORDERS RECEIVED. ALL NEEDS ATTENDED TO. PT CLEANED, TURNED AND REPOSITIONED. IV FLUIDS INFUSING ORDERED. STEELE INTACT. PT TRACH TO COOL AEROSOL, NO ACUTE DISTRESS NOTED. BEAR HUGGER IN PLACE.
[2018-07-02] MEDS ORDERED: DEXTROSE 50%-WATER 50 ML DISP.SYRIN IV PRN (19:30)
[2018-07-02 19:36] LABS: CALCIUM, SERUM 10.3 mg/dL (8.5-10.1); CREATININE 3.5 mg/dL (0.6-1.3); POTASSIUM 4.9 mmol/L (3.5-5.1)
--- NOTE | 2018-07-02 19:40 | NUR ---
RN/NOTES: LAB CALLED W/ CRITICAL OF BUN 107. TRENDING DOWN FROM 116. CHARGE NURSE AWARE.
--- NOTE | 2018-07-02 19:54 | NUR ---
RECEIVED PT TRACHED PORTEX 7 ON COOL AEROSOL 28%. MISAEL CLEMENT'Mani FOR SML AMT OF THICK WAGNER SECRETIONS. PT IS RECEIVING Q6 BREATHING TX. WILL CONTINUE TO MONITOR. Addendum: 07/02/18 at 5 by ZANDER CUNNINGHAM RT Amended: Links added.
--- NOTE | 2018-07-02 20:00 | NUR ---
RN/NOTES: RECEIVED PT. IN BED EYES OPEN, OBTUNDED W/ TRACH PORTEX 7 ON COOL AEROSOL 28%. NO FACIAL GRIMACES OR MOANING NOTED. W/ GT CLAMPED. W/ F/C PATENT AND INTACT DRAINING VIA GRAVITY CLOUDY COLOR. W/ MULTIPLE PRESSURE ULCERS NOTED. CHARGE NURSE STARTED PT. ON LEVO DRIP BP 79/47 (MAP 57). W/ BEAR HUGGER ON. W/ NS @ 125ML GOING ON. WILL CONTINUE TO MONITOR.
[2018-07-02] MEDS: NOREPINEPHRINE 8 MG in IV D5W 500 ML IV PRN (20:20)
--- NOTE | 2018-07-02 21:00 | NUR ---
RN/NOTES: PT. BP IS 85/49. LEVO INCREASED FROM 1 TO 2 . WILL CONTINUE TO MONITOR.
--- NOTE | 2018-07-02 22:00 | NUR ---
BP 85/52. LEVO INCREASED FROM 2 TO 3. WILL CONTINUE TO MONITOR.
--- NOTE | 2018-07-02 23:40 | NUR ---
RN/NOTES: BP 82/45 . LEVO INCREASED FROM 3 TO 4. WILL CONTINUE TO MONITOR.
[2018-07-03] VITALS (35 sets, daily range): BP systolic 80–111; BP diastolic 30–61
[2018-07-03] MEDS: BLOOD SUGAR DIAGNOSTIC 1 EACH STRIP IN SCH ×4 (00:05→17:31)
[2018-07-03] MEDS: IPRATROPIUM NEB FS 0.5 MG/2.5 ML AMPUL.NEB NEB SCH ×4 (01:00→19:58)
[2018-07-03] MEDS: ALBUTEROL HALF STRENGTH 1.25 MG/3 ML VIAL.NEB NEB SCH ×4 (01:00→19:58)
[2018-07-03] MEDS: MEROPENEM 500 MG in IV NS 0.9% 100 ML IV SCH ×2 (05:05→17:30)
[2018-07-03 05:40] LABS: CALCIUM, SERUM 10.5 mg/dL (8.5-10.1); CREATININE 3.3 mg/dL (0.6-1.3)
--- NOTE | 2018-07-03 07:43 | NUR ---
RN/NOTES: REPORT GIVEN TO NEXT SHIFT NURSE FOR LEENA.
--- NOTE | 2018-07-03 07:47 | NUR ---
KST OPERATOR NOTE PATIENT IN BED , OBTUNDED , WITH TRACH TO COOLER AEROSOL 28% 6L OF O2 WITH NOTED GRAINING BOTH TEETH , ON TELE MONITOR SR AT THIS TIME , G TUBE CLUMPED ORDERED , ON NPO AT THIS TIME , LT AC HL AND LT UPPER ARM PICC LINE,ON LEVOPHED DRIP ORDERED BP 95/56 AT THIS TIME , WITH STEELE CAT TO GRAVITY WITH YELLOW COLOR URINE , WILL CONT TO MONITOR CLOSELY
--- NOTE | 2018-07-03 07:58 | NUR ---
RT PT RECEIVED TRACHED ON COOL AEROSOL, PT IS AWAKE AND RESPONDS TO STIMULI WHEN SUCTIONED, NO SOB, NO RESPIRATORY DISTRESS NOTED AT THIS TIME. WILL CONTINUE TO MONITOR. Addendum: 07/03/18 at 1038 by KEVIN ALEJANDRA RT Amended: Links added.
[2018-07-03] MEDS: PANTOPRAZOLE 40 MG VIAL IV SCH (08:55)
[2018-07-03] MEDS ORDERED: Z GUARD REMEDY 2 OZ OINT TP PRN (09:00)
--- NOTE | 2018-07-03 09:03 | NUR ---
WOUND CARE CONSULT: PT PRESENTS WITH MULTIPLE WOUNDS, PRESENT ON ADMISSION. PT SEEN BY SURGICAL N.P. AND ALL WOUND CARE RECOMMENDATIONS DISCUSSED WITH SURGICAL N.P. AND NURSING STAFF. DPM CONSULT RECOMMENDED. DEFER TO DPM FOR LOWER EXTREMITY WOUNDS. PT IS EXTREMELY CACHECTIC AND CONTRACTED, MAKING OFFLOADING DIFFICULT. PT ON DARRELL ISOFLEX LOW AIRLOSS BED. G TUBE NOTED (CLAMPED). STEELE NOTED. PT INCONTINENT OF STOOL. CURRENT DEMARCUS SCORE IS 7. WILL SEE PRN. MITCHELL IN AGREEMENT WITH PLAN OF CARE. Addendum: 07/03/18 at 0906 by ASHLEY ALVAREZ WNDNU Amended: Links added.
[2018-07-03] MEDS: Z GUARD REMEDY 2 OZ OINT TP SCH (09:58)
[2018-07-03] MEDS: HYDROGEL DRESSING 90 GM TUBE TP SCH (09:58)
--- NOTE | 2018-07-03 11:30 | NUR ---
ORTHODONTIST ASSISTANT NOTE TELEPHONE CONSENT WITH DAUGHTER FOR PICC LINE OBTAINED
[2018-07-03 11:41] LABS: BASOPHILS % (AUTO) 0.3 % (0.0-2.0); EOSINOPHILS % (AUTO) 4.9 % (0.0-6.0); HEMATOCRIT 27 % (39-51); HEMOGLOBIN 8.9 g/dL (13.5-17.5); LYMPHOCYTES # (AUTO) 0.6 /CMM (0.8-4.8); LYMPHOCYTES % (AUTO) 7.1 % (20.0-44.0); MEAN CORPUSCULAR HGB CONC 33 g/dl (31.0-36.0); MEAN CORPUSCULAR VOLUME 106 fL (80-96); MONOCYTES # (AUTO) 0.7 /CMM (0.1-1.30); MONOCYTES % (AUTO) 8.2 % (2.0-12.0); NEUTROPHILS # (AUTO) 6.3 /CMM (1.8-8.9); NEUTROPHILS % (AUTO) 79.5 % (43.0-81.0); PLATELET COUNT (AUTO) 66 /CMM (150-450); RED BLOOD CELL COUNT(AUTO) 2.56 MIL/uL (4.5-6.0)
--- NOTE | 2018-07-03 11:50 | NUR ---
EMPLOYMENT DIRECTOR NOTE PER DR NORWOOD OK TO START ON IVF NS AT 125 ML PER HOUR AND G TUBE FEEDING , ALSO OK TO INSERT PICC LINE ALSO AWARE THAT BUN 103 CREAT 3.3 ,PLATELETS 66, OK TO START ON LOVENOX, STATED HOLD ALL MEDS FROM SNF AT THIS TIME
[2018-07-03] MEDS: IV NS 0.9% 1,000 ML IV PRN ×2 (11:56→23:58)
[2018-07-03] MEDS ORDERED: GLUCERNA 1.2 1,000 ML BOTTLE NG PRN (12:00)
[2018-07-03 12:44] LABS: BAND % (MANUAL) 6 % (0.0-5.0); EOSINOPHILS % (MANUAL) 4 % (0-4); LYMPHOCYTES % (MANUAL) 6 % (16-48); MONOCYTES % (MANUAL) 5 % (0-11.0); NEUTROPHILS % (MANUAL) 79 (42-76)
--- NOTE | 2018-07-03 12:54 | NUR ---
LINING VAMPER NOTE SPOKE WIT DR SHARIF NOTIFIED THAT PER PHARMACY PLATELETS 66 STATED OK TO D\C FOR NOW AND PLACE DVT PIMP ALSO NOTIFIED THAT PATIENT IS HX DM OK TO START ON MILD SLIDING CAMMIE Addendum: 07/03/18 at 1856 by KELLIE BARRIGA RN 1300 g tube feeding started as ordered ,keep hob elevated at all time ,will monitor closely
[2018-07-03] MEDS ORDERED: DEXTROSE 50%-WATER 50 ML DISP.SYRIN IV PRN (13:00)
--- NOTE | 2018-07-03 14:30 | NUR ---
superintendent horticulture note foot doctor at bedside ,new tx for rt foot done
--- NOTE | 2018-07-03 15:10 | NUR ---
MORTGAGE LENDER NOTE PICC LINE INSERTED ON LT UPPER ARM ,CHEST XARY DONE OK TO USE, CONT ON IVF ORDERED, ABG DONE ORDERED ,PLACED ON MRSA ISOLATION PER HOSPITAL PROTOCOL
--- NOTE | 2018-07-03 15:14 | NUR ---
SORORITY SUPERVISOR NOTE PER DIETARY OK TO START G TUBE FEEDING AT 50 ML PER HOUR
[2018-07-03 15:15] LABS: ABG BASE EXCESS -4.9 mmol/L; ABG PCO2 32.9 mmHg (35.0-45.0); ABG PH 7.388 (7.350-7.450); ABG PO2 78.4 mmHg (75.0-100.0); AaDO2 82.4 mmHg; COHb 0.3 % (0.5-1.5); MetHb 0.6 % (0.0-1.5); O2Hb 93.2 % (94.0-97.0); SITE, ABG Left Radial; VENT MODE, BG COOL AEROSOL 28%
[2018-07-03] MEDS: NOREPINEPHRINE 8 MG in IV D5W 500 ML IV PRN (16:51)
--- NOTE | 2018-07-03 17:00 | NUR ---
curriculum director note cont on ivf as ordered, keep clean dry ,all needs attended, with trach to cooler aerosol 28% , will cont to monitor closely
[2018-07-03] MEDS: INSULIN REGULAR, HUMAN 100 UNIT/ML 3 ML VIAL SQ PRN (17:27)
--- NOTE | 2018-07-03 18:59 | NUR ---
PACKING ATTENDANT NOTE CONT ON G TUBE FEEDING TOLERATED AT45 ML AT THIS TIME ,KEEP HOB ELEVATED, NO RESIDUAL NOTED ,ON TRACH TO COOLER AEROSOL ORDERED, ALL NEEDS ATTENDED .WILL CONT TO MONITOR
--- NOTE | 2018-07-03 20:00 | NUR ---
[employer] NOTE PT RECEIVED IN BED OBTUNDED. ON TRACH PORTEX #7 COOL AEROSOL 5L FIO2 28%. NO DISTRESS OR DISCOMFORT NOTED. NO S/S OF PAIN NOTED. ON TELE MONITOR SR HR 88. F/C INTACT AND PATENT DRAINING CLOUDY YELLOWISH URINE. GTF GLUCERNA INFUSING AT 50 ML/HR, TOLERATING WELL. RESIDUAL 5 ML. KEPT HOB ELEVATED. JAIR PICC LINE INFUSING LEVOPHED AT 8CG/MIN AND LAC # 18 G INFUSING NS AT 125 ML/HR, NO S/S OF INFILTRATION NOTED. NO S/S OF HYPO OR HYPERGLYCEMIA NOTED. KEPT HIM DRY AND CLEAN. ALL NEEDS ATTENDED. REPOSITION HIM FOR SKIN AND COMFORT MEASURES. SIDE RAILS UP X 3 AND CALL LIGHT WITHIN REACH. VSS. CONTINUE TO MONITOR HIM.
[2018-07-04] VITALS (47 sets, daily range): BP systolic 88–125; BP diastolic 52–67
[2018-07-04] MEDS: BLOOD SUGAR DIAGNOSTIC 1 EACH STRIP IN SCH ×4 (00:03→18:18)
[2018-07-04] MEDS: INSULIN REGULAR, HUMAN 100 UNIT/ML 3 ML VIAL SQ PRN ×4 (00:06→17:48)
[2018-07-04] MEDS: IPRATROPIUM NEB FS 0.5 MG/2.5 ML AMPUL.NEB NEB SCH ×4 (01:39→19:30)
[2018-07-04] MEDS: ALBUTEROL HALF STRENGTH 1.25 MG/3 ML VIAL.NEB NEB SCH ×4 (01:39→19:30)
[2018-07-04] MEDS: VANCOMYCIN 0.75 GM in IV D5W 250 ML IV SCH (03:29)
[2018-07-04 04:57] LABS: BASOPHILS % (AUTO) 0.2 % (0.0-2.0); EOSINOPHILS % (AUTO) 5.8 % (0.0-6.0); HEMATOCRIT 25 % (39-51); HEMOGLOBIN 8.2 g/dL (13.5-17.5); LYMPHOCYTES # (AUTO) 0.5 /CMM (0.8-4.8); LYMPHOCYTES % (AUTO) 9.8 % (20.0-44.0); MEAN CORPUSCULAR HGB CONC 33 g/dl (31.0-36.0); MEAN CORPUSCULAR VOLUME 106 fL (80-96); MONOCYTES # (AUTO) 0.6 /CMM (0.1-1.30); MONOCYTES % (AUTO) 11.2 % (2.0-12.0); NEUTROPHILS # (AUTO) 3.6 /CMM (1.8-8.9); RED BLOOD CELL COUNT(AUTO) 2.36 MIL/uL (4.5-6.0); WHITE BLOOD COUNT (AUTO) 4.9 K/uL (4.3-11.0)
[2018-07-04 05:29] LABS: PLATELET COUNT (AUTO) 39 /CMM (150-450)
[2018-07-04] MEDS: MEROPENEM 500 MG in IV NS 0.9% 100 ML IV SCH ×2 (05:30→17:49)
[2018-07-04 05:50] LABS: BAND % (MANUAL) 6 % (0.0-5.0); EOSINOPHILS % (MANUAL) 5 % (0-4); LYMPHOCYTES % (MANUAL) 6 % (16-48); MONOCYTES % (MANUAL) 8 % (0-11.0); NEUTROPHILS % (MANUAL) 75 (42-76)
--- NOTE | 2018-07-04 06:41 | NUR ---
MORTGAGE ORIGINATOR NOTE NO CHANGE IN PT'S CONDITION. IN BED OBTUNDED. GRINDING HIM TEETH ON AND OFF DURING THE SHIFT. SUCTIONED HIM FREQUENTLY, THIN YELLOWISH SECRETIONS NOTED. PT REMAIN ON LEVOPHED 8 MCG/MIN BP 101/59 HR 65. GTF INFUSING WELL, 0 ML RESIDUAL NOTED. F/C INTACT AND PATENT DRAINING YELLOWISH COLOR URINE. SIDE RAILS UP X 3 AND CALL LIGHT WITHIN REACH. REPOSITION HIM Q2H, KEPT HIM DRY AND CLEAN. ALL NEEDS ATTENDED. WILL ENDORSE TO DAY SHIFT NURSE FOR CONTINUE TO CARE.
[2018-07-04] MEDS ORDERED: ENOXAPARIN SODIUM 30 MG/0.3 ML DISP.SYRIN SQ SCH (09:00)
[2018-07-04] MEDS: DAKINS QUARTER STRENGTH (0.125%) 480 ML BOTTLE TOP SCH (10:31)
[2018-07-04] MEDS: PANTOPRAZOLE 40 MG VIAL IV SCH (10:31)
[2018-07-04] MEDS: CADEXOMER IODINE 40 GM TUBE TP SCH (10:32)
[2018-07-04] MEDS: Z GUARD REMEDY 2 OZ OINT TP SCH (10:36)
[2018-07-04] MEDS: HYDROGEL DRESSING 90 GM TUBE TP SCH (10:36)
--- NOTE | 2018-07-04 13:55 | NUR ---
Skin care done dressing changed MD Cruz notified of large mass to abdomen and leaking G-tube site order to continue watching taken
--- NOTE | 2018-07-04 20:00 | NUR ---
MACHINIST INSTRUCTOR NOTES RECEIVED PT IN BED, OBTUNDED. TELE READS SR AT 80 BPM, ON O2 VIA TRACH USING T-PIECE AT 5 LPM AT FIO2 28%. PORTEX 7. STEELE CATH IN PLACE AND DRAINING WELL. LEFT AC IV REMOVED. PICC AT JAIR RUNNING NS AT 125 ML/HR AND LEVO AT 1 MCG/MIN, SBP >90, LEVO STOPPED. MULTIPLE WOUNDS NOTED. GT IN PLACE RUNNING GLUCERNA AT 50 ML/HR, JAYLEN WELL, 20 ML GASTRIC RESIDUAL. TURNED AND REPOSITIONED, SIDE RAILS X2, HOB ELEVATED.
[2018-07-04] MEDS: MUPIROCIN OINT 2% 22 GM TUBE SCH (21:00)
[2018-07-04] MEDS: IV NS 0.9% 1,000 ML IV PRN (21:24)
[2018-07-05] VITALS (65 sets, daily range): BP systolic 89–115; BP diastolic 44–71
[2018-07-05] MEDS: BLOOD SUGAR DIAGNOSTIC 1 EACH STRIP IN SCH ×5 (00:39→23:56)
[2018-07-05] MEDS: ALBUTEROL HALF STRENGTH 1.25 MG/3 ML VIAL.NEB NEB SCH ×4 (01:56→20:02)
[2018-07-05] MEDS: IPRATROPIUM NEB FS 0.5 MG/2.5 ML AMPUL.NEB NEB SCH ×4 (01:56→20:02)
[2018-07-05] MEDS: GLUCERNA 1.2 1,000 ML BOTTLE NG PRN (02:48)
[2018-07-05] MEDS: IV NS 0.9% 1,000 ML IV PRN (03:42)
[2018-07-05 05:07] LABS: CALCIUM, SERUM 9.7 mg/dL (8.5-10.1); CREATININE 2.7 mg/dL (0.6-1.3); POTASSIUM 4.1 mmol/L (3.5-5.1)
[2018-07-05] MEDS: MEROPENEM 500 MG in IV NS 0.9% 100 ML IV SCH ×2 (05:22→18:32)
[2018-07-05] MEDS: VANCOMYCIN 500 MG in IV D5W 100 ML IV SCH (05:22)
[2018-07-05] MEDS: INSULIN REGULAR, HUMAN 100 UNIT/ML 3 ML VIAL SQ PRN ×2 (05:53→18:31)
[2018-07-05 07:23] LABS: BASOPHILS % (AUTO) 0.2 % (0.0-2.0); EOSINOPHILS % (AUTO) 15.9 % (0.0-6.0); HEMATOCRIT 24 % (39-51); HEMOGLOBIN 7.6 g/dL (13.5-17.5); LYMPHOCYTES # (AUTO) 0.3 /CMM (0.8-4.8); LYMPHOCYTES % (AUTO) 12.5 % (20.0-44.0); MEAN CORPUSCULAR HGB CONC 33 g/dl (31.0-36.0); MEAN CORPUSCULAR VOLUME 107 fL (80-96); MONOCYTES # (AUTO) 0.3 /CMM (0.1-1.30); MONOCYTES % (AUTO) 10.7 % (2.0-12.0); NEUTROPHILS # (AUTO) 1.7 /CMM (1.8-8.9); NEUTROPHILS % (AUTO) 60.7 % (43.0-81.0); RED BLOOD CELL COUNT(AUTO) 2.19 MIL/uL (4.5-6.0); WHITE BLOOD COUNT (AUTO) 2.8 K/uL (4.3-11.0)
[2018-07-05 07:28] LABS: PLATELET COUNT (AUTO) 25 /CMM (150-450)
[2018-07-05] MEDS: CADEXOMER IODINE 40 GM TUBE TP SCH (08:28)
[2018-07-05] MEDS: HYDROGEL DRESSING 90 GM TUBE TP PRN ×2 (08:29→08:37)
[2018-07-05] MEDS: DAKINS QUARTER STRENGTH (0.125%) 480 ML BOTTLE TOP SCH (08:29)
[2018-07-05] MEDS: PANTOPRAZOLE 40 MG VIAL IV SCH (08:30)
[2018-07-05] MEDS: MUPIROCIN OINT 2% 22 GM TUBE SCH ×2 (08:34→20:37)
[2018-07-05] MEDS: Z GUARD REMEDY 2 OZ OINT TP SCH (08:36)
[2018-07-05] MEDS: HYDROGEL DRESSING 90 GM TUBE TP SCH (08:37)
[2018-07-05 08:46] LABS: BAND % (MANUAL) 1 % (0.0-5.0); EOSINOPHILS % (MANUAL) 7 % (0-4); LYMPHOCYTES % (MANUAL) 8 % (16-48); MONOCYTES % (MANUAL) 12 % (0-11.0); NEUTROPHILS % (MANUAL) 72 (42-76)
[2018-07-05 13:15] LABS: D-DIMER 3.04 mg/L(FEU (0.17-0.50)
[2018-07-05] MEDS: IV D5/0.45 NACL 1,000 ML IV PRN (13:51)
--- NOTE | 2018-07-05 19:10 | NUR ---
TD/RN INITIAL NOTES RECEIVED PT IN BED,NONVERBAL. NO SIGNS OF PAIN NOTED. SR ON TELEMONITOR. WITH INTACT TRACH PORTEX7, ON COOL AEROSOL, TOLERATING WELL. NO SOB NOTED. WITH ONGOING GTF GLUCERNA AT 50 ML/HR, TOLERATING WELL. GT INTACT AND IN PLACED. NOTED MINIMAL LEAK ON GT SITE ENDORSED BY AM SHIFT RNLORETTA. HOB ELEVATED. F/C INTACT AND IN PLACED. WITH ONGOING IV ATB MERREM AND IVF D51/2 NS INFUSING WELL ON JAIR PICC LINE. SAFETY MEASURES IN PLACED. NO ACTIVE BLEEDING NOTED. SAFETY MEASURES AND ASPIRATION PRECAUTION IN PLACED. CALL LIGHT WITHIN EASY REACH. WILL CONT TO MONITOR
[2018-07-05] MEDS ORDERED: SILVER NITRATE APPLICATOR 1 EA BOX TP ONE (20:00)
[2018-07-06] VITALS: BP 104/69
[2018-07-06] MEDS: IPRATROPIUM NEB FS 0.5 MG/2.5 ML AMPUL.NEB NEB SCH ×4 (01:03→19:27)
[2018-07-06] MEDS: ALBUTEROL HALF STRENGTH 1.25 MG/3 ML VIAL.NEB NEB SCH ×4 (01:03→19:27)
[2018-07-06] MEDS: GLUCERNA 1.2 1,000 ML BOTTLE NG PRN (02:16)
[2018-07-06 04:00] VITALS: BP 92/51
[2018-07-06] MEDS: VANCOMYCIN 500 MG in IV D5W 100 ML IV SCH (05:16)
[2018-07-06] MEDS: IV D5/0.45 NACL 1,000 ML IV PRN ×2 (05:17→16:15)
[2018-07-06] MEDS: BLOOD SUGAR DIAGNOSTIC 1 EACH STRIP IN SCH ×4 (05:46→23:48)
[2018-07-06] MEDS: INSULIN REGULAR, HUMAN 100 UNIT/ML 3 ML VIAL SQ PRN ×3 (05:49→23:48)
[2018-07-06] MEDS: MEROPENEM 500 MG in IV NS 0.9% 100 ML IV SCH ×2 (06:02→17:44)
[2018-07-06 06:34] LABS: BASOPHILS % (AUTO) 0.5 % (0.0-2.0); EOSINOPHILS % (AUTO) 13.4 % (0.0-6.0); HEMATOCRIT 24 % (39-51); LYMPHOCYTES # (AUTO) 0.5 /CMM (0.8-4.8); LYMPHOCYTES % (AUTO) 16.6 % (20.0-44.0); MEAN CORPUSCULAR HGB CONC 33 g/dl (31.0-36.0); MEAN CORPUSCULAR VOLUME 106 fL (80-96); MONOCYTES # (AUTO) 0.3 /CMM (0.1-1.30); MONOCYTES % (AUTO) 9.7 % (2.0-12.0); NEUTROPHILS # (AUTO) 1.9 /CMM (1.8-8.9); NEUTROPHILS % (AUTO) 59.8 % (43.0-81.0); RED BLOOD CELL COUNT(AUTO) 2.25 MIL/uL (4.5-6.0); WHITE BLOOD COUNT (AUTO) 3.2 K/uL (4.3-11.0)
[2018-07-06 06:37] LABS: CREATININE 2.5 mg/dL (0.6-1.3); POTASSIUM 4.3 mmol/L (3.5-5.1)
--- NOTE | 2018-07-06 06:38 | NUR ---
RN NOTES PT REMAINED IN STABLE CONDITION. NO ACUTE CHANGES THROUGHOUT SHIFT. SAFETY MEASURES AND ASPIRATION PRECAUTION OBSERVED AT ALL TIMES. ALL NEEDS ANTICIPATED. WILL ENDORSE TO AM SHIFT RN FOR LEENA
[2018-07-06 06:43] LABS: CALCIUM, SERUM 9.7 mg/dL (8.5-10.1)
[2018-07-06 06:53] LABS: PLATELET COUNT (AUTO) 20 /CMM (150-450)
--- NOTE | 2018-07-06 07:00 | NUR ---
ROD RN INITIAL NOTES PT IN BED, ASLEEP INTERMITTENTLY, AROUSABLE TO TOUCH; OBTUNDED. ON COOL AEROSOL VIA TPIECE.O2 SAT WNL. SPUTUM THICK, WAGNER AND PINK. ON TELE SR 89. JAIR PICC; PATENT AND FLUSHED. GT SITE LEAKING NOTED. ABD HERNIA NOTED WITH REDNESS; POSSIBLE RASH. IV FLUIDS RUNNING. BED IN LOCKED AND LOWEST POSITION. CALL LIGHT IN REACH. WILL CONT TO MONITOR.
[2018-07-06 08:00] VITALS: BP 95/54
--- NOTE | 2018-07-06 09:00 | NUR ---
ROD RN NOTES PER BOBY SURGERY, DEBRIDEMENT OF BUTTOCK WILL BE CANCELLED TODAY D/T PLATELET LEVEL.
[2018-07-06 09:11] LABS: BAND % (MANUAL) 2 % (0.0-5.0); EOSINOPHILS % (MANUAL) 15 % (0-4); LYMPHOCYTES % (MANUAL) 9 % (16-48); MONOCYTES % (MANUAL) 9 % (0-11.0); NEUTROPHILS % (MANUAL) 65 (42-76)
[2018-07-06] MEDS: PANTOPRAZOLE 40 MG VIAL IV SCH (09:13)
[2018-07-06] MEDS: CADEXOMER IODINE 40 GM TUBE TP SCH (09:29)
[2018-07-06] MEDS: HYDROGEL DRESSING 90 GM TUBE TP SCH (09:29)
[2018-07-06] MEDS: DAKINS QUARTER STRENGTH (0.125%) 480 ML BOTTLE TOP SCH (09:29)
[2018-07-06] MEDS: MUPIROCIN OINT 2% 22 GM TUBE SCH ×2 (09:30→21:35)
[2018-07-06] MEDS: Z GUARD REMEDY 2 OZ OINT TP SCH (09:31)
[2018-07-06 12:00] VITALS: BP 99/54
[2018-07-06 13:23] LABS: BASOPHILS % (AUTO) 0.8 % (0.0-2.0); EOSINOPHILS % (AUTO) 13.8 % (0.0-6.0); HEMATOCRIT 23 % (39-51); HEMOGLOBIN 7.6 g/dL (13.5-17.5); LYMPHOCYTES # (AUTO) 0.6 /CMM (0.8-4.8); LYMPHOCYTES % (AUTO) 15.1 % (20.0-44.0); MEAN CORPUSCULAR HGB CONC 33 g/dl (31.0-36.0); MEAN CORPUSCULAR VOLUME 106 fL (80-96); MONOCYTES # (AUTO) 0.4 /CMM (0.1-1.30); MONOCYTES % (AUTO) 11.1 % (2.0-12.0); NEUTROPHILS # (AUTO) 2.3 /CMM (1.8-8.9); NEUTROPHILS % (AUTO) 59.2 % (43.0-81.0); RED BLOOD CELL COUNT(AUTO) 2.18 MIL/uL (4.5-6.0); WHITE BLOOD COUNT (AUTO) 3.8 K/uL (4.3-11.0)
[2018-07-06 15:00] LABS: BAND % (MANUAL) 1 % (0.0-5.0); EOSINOPHILS % (MANUAL) 13 % (0-4); LYMPHOCYTES % (MANUAL) 22 % (16-48); MONOCYTES % (MANUAL) 11 % (0-11.0); NEUTROPHILS % (MANUAL) 53 (42-76)
[2018-07-06 15:04] LABS: PLATELET COUNT (AUTO) 19 /CMM (150-450)
[2018-07-06 16:00] VITALS: BP 91/48
--- NOTE | 2018-07-06 19:30 | NUR ---
ROD RN NOTES PT IN BED ASLEEP; NO S/SX OF RESP DISTRESS NOTED. ALL NEEDS ATTENDED TO. BED IN LOCKED/LOWEST POSITION. CALL LIGHT IN REACH.
[2018-07-06 20:00] VITALS: BP 100/54
--- NOTE | 2018-07-06 20:00 | NUR ---
shannon rn notes receved pts in bes awake and responsive , no sob no distress noted on monitor sr on the monitor , v/s stable afebrile , hob elevated for aspiration precaution ,turned and reposition q 2 hrs and prn for wnd mgt.pts on gt feeding glucerna 1.2 at 50cc/hr fedding well tolerated no residual noted abdomen soft non distended all needs attended too pts on trach suction secretion done q 2hrs and prn ,on contact isolation mrsa nares precationary observed at all times ,
[2018-07-07] VITALS: BP 93/53
[2018-07-07] MEDS: ALBUTEROL HALF STRENGTH 1.25 MG/3 ML VIAL.NEB NEB SCH ×4 (02:15→19:25)
[2018-07-07] MEDS: IPRATROPIUM NEB FS 0.5 MG/2.5 ML AMPUL.NEB NEB SCH ×4 (02:15→19:25)
[2018-07-07] MEDS: GLUCERNA 1.2 1,000 ML BOTTLE NG PRN (03:38)
[2018-07-07] MEDS: IV D5/0.45 NACL 1,000 ML IV PRN (03:39)
[2018-07-07 04:00] VITALS: BP 91/51
[2018-07-07] MEDS: MEROPENEM 500 MG in IV NS 0.9% 100 ML IV SCH ×2 (05:13→18:54)
[2018-07-07] MEDS: VANCOMYCIN 500 MG in IV D5W 100 ML IV SCH (06:00)
[2018-07-07] MEDS: INSULIN REGULAR, HUMAN 100 UNIT/ML 3 ML VIAL SQ PRN ×3 (06:19→23:46)
[2018-07-07] MEDS: BLOOD SUGAR DIAGNOSTIC 1 EACH STRIP IN SCH ×4 (06:21→23:47)
[2018-07-07 06:22] LABS: BASOPHILS % (AUTO) 0.9 % (0.0-2.0); EOSINOPHILS % (AUTO) 13.6 % (0.0-6.0); HEMATOCRIT 21 % (39-51); LYMPHOCYTES # (AUTO) 0.7 /CMM (0.8-4.8); LYMPHOCYTES % (AUTO) 20.2 % (20.0-44.0); MEAN CORPUSCULAR HGB CONC 34 g/dl (31.0-36.0); MEAN CORPUSCULAR VOLUME 106 fL (80-96); MONOCYTES # (AUTO) 0.3 /CMM (0.1-1.30); MONOCYTES % (AUTO) 9.6 % (2.0-12.0); NEUTROPHILS # (AUTO) 1.8 /CMM (1.8-8.9); NEUTROPHILS % (AUTO) 55.7 % (43.0-81.0); WHITE BLOOD COUNT (AUTO) 3.3 K/uL (4.3-11.0)
[2018-07-07 06:27] LABS: CALCIUM, SERUM 9.2 mg/dL (8.5-10.1); CREATININE 2.3 mg/dL (0.6-1.3); POTASSIUM 4.4 mmol/L (3.5-5.1)
--- NOTE | 2018-07-07 06:27 | NUR ---
ROD RN NOTES BLOOD SUGAR FOR 6AM IS 136 -2 UNITS OF REGULAR INSULIN GIVEN PER SLIDING SCALE , V/S STABLE AFEBRILE NO SOB NO DISTRESS NOTED WILL ENDORSE TO RN DAY SHIFT FOR CONTINUITY OF CARE.
[2018-07-07 06:40] LABS: RED BLOOD CELL COUNT(AUTO) 1.97 MIL/uL (4.5-6.0)
[2018-07-07 06:42] LABS: PLATELET COUNT (AUTO) 19 /CMM (150-450)
--- NOTE | 2018-07-07 07:00 | NUR ---
ROD RN INITIAL NOTES RECEIVED PT IN BED, OBTUNDED. OPENS EYES TO TOUCH. PT IS ON TPIECE TO 5L. NO S/SX RESP DISTRESS. STEELE CATH DRAINING REDDISH URINE. BED IN LOCKED/LOWEST POSITION. CALL LIGHT IN REACH. WILL CONT TO MONITOR.
[2018-07-07 08:00] VITALS: BP 104/54
[2018-07-07 08:13] LABS: BAND % (MANUAL) 3 % (0.0-5.0); EOSINOPHILS % (MANUAL) 14 % (0-4); LYMPHOCYTES % (MANUAL) 18 % (16-48); MONOCYTES % (MANUAL) 8 % (0-11.0); NEUTROPHILS % (MANUAL) 57 (42-76)
[2018-07-07] MEDS: PANTOPRAZOLE 40 MG VIAL IV SCH (09:28)
[2018-07-07] MEDS: MUPIROCIN OINT 2% 22 GM TUBE SCH ×2 (09:33→21:48)
[2018-07-07] MEDS: DAKINS QUARTER STRENGTH (0.125%) 480 ML BOTTLE TOP SCH (09:34)
[2018-07-07] MEDS: CADEXOMER IODINE 40 GM TUBE TP SCH (09:35)
[2018-07-07] MEDS: HYDROGEL DRESSING 90 GM TUBE TP SCH (09:35)
[2018-07-07] MEDS: Z GUARD REMEDY 2 OZ OINT TP SCH (09:35)
[2018-07-07 12:00] VITALS: BP 117/64
[2018-07-07 16:00] VITALS: BP 103/60
--- NOTE | 2018-07-07 17:00 | NUR ---
ROD RN NOTES PER PHARMACY, OK TO GIVE VANCO AT 1800 ORDERED.
[2018-07-07] MEDS ORDERED: VANCOMYCIN 500 MG in IV D5W 100 ML IV SCH (18:00)
--- NOTE | 2018-07-07 19:14 | NUR ---
ROD RN CLOSING NOTES REPORT GIVEN TO PM NURSE FOR LEENA. VANCO GIVEN PER PHARM. MEROPENEM TO BE GIVEN AFTER. BED IN LOCKED/LOWEST POSITION. CALL LIGHT IN REACH. ALL NEEDS ATTENDED TO.
[2018-07-07 20:00] VITALS: BP 112/63
--- NOTE | 2018-07-07 20:00 | NUR ---
ROD RN NOTES RECEIVED PTS IN BED OBTUNDED ON TRACH ON TBAR SATING 98% V/S STABLE AFEBRILE ON TELE SR ON THE MONITOR , HOB ELEVATED FOR ASPIRATION PRECAUTION SUCTION SECRETION Q2HRS AND PRN , PTS ON GT FEEDING GLUCERNA AT 50CC/HR TOLERATING WELL NO RESIDUAL NOTED PTS WITH F/C INTACT AND PATENT WITH YELLOW CLEAR OUTPUT , ALL NEEDS ATTENDED TOO CALL LIGHT WITHIN REACH ALL DUE MEDS GIVEN ORDERED KEPT PTS CLEAN DRY AND COMFORTABLE .
--- NOTE | 2018-07-07 23:49 | NUR ---
ROD RN NOTES BLOOD SUGAR FOR 12MN IS 128 NO COVERAGE GIVEN PER SLIDING SCALE
[2018-07-08] VITALS (7 sets, daily range): BP systolic 99–124; BP diastolic 55–73
[2018-07-08] MEDS: ALBUTEROL HALF STRENGTH 1.25 MG/3 ML VIAL.NEB NEB SCH ×4 (00:37→20:00)
[2018-07-08] MEDS: IPRATROPIUM NEB FS 0.5 MG/2.5 ML AMPUL.NEB NEB SCH ×4 (00:37→20:00)
[2018-07-08] MEDS: GLUCERNA 1.2 1,000 ML BOTTLE NG PRN (00:57)
[2018-07-08] MEDS: MEROPENEM 500 MG in IV NS 0.9% 100 ML IV SCH ×2 (05:32→17:35)
[2018-07-08] MEDS: INSULIN REGULAR, HUMAN 100 UNIT/ML 3 ML VIAL SQ PRN ×3 (05:40→17:37)
[2018-07-08] MEDS: BLOOD SUGAR DIAGNOSTIC 1 EACH STRIP IN SCH ×3 (05:41→17:37)
[2018-07-08 06:52] LABS: BASOPHILS % (AUTO) 0.3 % (0.0-2.0); EOSINOPHILS % (AUTO) 20.7 % (0.0-6.0); HEMATOCRIT 23 % (39-51); HEMOGLOBIN 7.6 g/dL (13.5-17.5); LYMPHOCYTES # (AUTO) 0.6 /CMM (0.8-4.8); LYMPHOCYTES % (AUTO) 18.9 % (20.0-44.0); MEAN CORPUSCULAR HGB CONC 33 g/dl (31.0-36.0); MEAN CORPUSCULAR VOLUME 107 fL (80-96); MONOCYTES # (AUTO) 0.3 /CMM (0.1-1.30); MONOCYTES % (AUTO) 8.9 % (2.0-12.0); NEUTROPHILS # (AUTO) 1.7 /CMM (1.8-8.9); NEUTROPHILS % (AUTO) 51.2 % (43.0-81.0); RED BLOOD CELL COUNT(AUTO) 2.14 MIL/uL (4.5-6.0); WHITE BLOOD COUNT (AUTO) 3.4 K/uL (4.3-11.0)
[2018-07-08 07:04] LABS: BILIRUBIN,TOTAL 0.6 mg/dL (0.2-1.0); CALCIUM, SERUM 9.6 mg/dL (8.5-10.1); CREATININE 2.3 mg/dL (0.6-1.3); MAGNESIUM 1.9 mg/dL (1.8-2.4); PHOSPHORUS 3.7 mg/dL (2.5-4.9); POTASSIUM 4.5 mmol/L (3.5-5.1)
[2018-07-08 07:10] LABS: PLATELET COUNT (AUTO) 23 /CMM (150-450)
[2018-07-08 07:15] LABS: ALBUMIN 1.4 g/dL (3.4-5.0)
--- NOTE | 2018-07-08 07:30 | NUR ---
RN NOTES RECEIVED PATIENT IN BED, A/O X1, NONVERBAL. TRACH DEPENDENT, TRACH TUBE:PORTEX7 IN MIDLINE POSITION, ON COOL AEROSOL, BREATHING UNLABORED AND TOLERATING WELL. NO SOB NOTED. NO PAIN NOTED AT THIS TIME. ON TELEMONITOR SINUS RHYTHM HR 85. WITH ONGOING IV ATB MERREM INFUSING WELL ON JAIR PICC LINE. GTF OF GLUCERNA AT 50 ML/HR,TOLERATING WELL. GT INTACT AND IN PLACED. NOTED MINIMAL LEAK ON GT SITE. F/C INTACT AND IN PLACED DRAINING WELL VIA GRAVITY TO WONG COLOR URINE. NO ACTIVE BLEEDING NOTED. SAFETY MEASURES OBSERVED AND KEPT IN PLACED. HOB KEPT ELEVATED. ASPIRATION PRECAUTION IN PLACED. CALL LIGHT WITHIN EASY REACH. WILL CONTINUE TO MONITOR PATIENT CLOSELY
[2018-07-08] MEDS: PANTOPRAZOLE 40 MG VIAL IV SCH (08:55)
[2018-07-08] MEDS: MUPIROCIN OINT 2% 22 GM TUBE SCH ×2 (08:57→21:58)
[2018-07-08] MEDS: CADEXOMER IODINE 40 GM TUBE TP SCH (08:58)
[2018-07-08] MEDS: DAKINS QUARTER STRENGTH (0.125%) 480 ML BOTTLE TOP SCH (08:58)
[2018-07-08] MEDS: HYDROGEL DRESSING 90 GM TUBE TP SCH (08:58)
[2018-07-08] MEDS: Z GUARD REMEDY 2 OZ OINT TP SCH (08:59)
--- NOTE | 2018-07-08 10:45 | NUR ---
RN NOTES DR. NORWOOD AT THE UNIT. INFORMED AND UPDATED ON PATIENT'S CURRENT PLATELET LEVEL AT 23 FROM 19 YESTERDAY ANF ALBUMIN LEVEL AT 1.2 TODAY. PER MD, HE WILL CHECK ON THE PATIENT.
--- NOTE | 2018-07-08 11:48 | NUR ---
INFORMED MD THAT PATIENT HAS JUST GOT CHANGED AND WAS NOTED WITH LOOSE BOWEL MOVEMENT. PER MD, CONTINUE MONITOR AND THIS MIGHT BE ASSOCIATED WITH ANTIBIOTIC USE.
[2018-07-08 11:53] LABS: EOSINOPHILS % (MANUAL) 20 % (0-4); LYMPHOCYTES % (MANUAL) 26 % (16-48); MONOCYTES % (MANUAL) 5 % (0-11.0); NEUTROPHILS % (MANUAL) 49 (42-76)
[2018-07-08] MEDS: ALBUMIN 25% 25 GM in PREMIX 1 EA IV SCH ×2 (12:01→22:21)
--- NOTE | 2018-07-08 19:25 | NUR ---
RN NOTES ENDORSED PATIENT FOR CONTINUITY OF CARE. NO ACUTE CHANGES WITHIN THE SHIFT. ALL NURSING NEEDS ATTENDED AND MET.
[2018-07-08] MEDS ORDERED: ALBUMIN 25% 100 ML IV ONE (22:16)
--- NOTE | 2018-07-08 23:55 | NUR ---
RT NOTE PT RCVD VERA'D ON COOL AEROSOL WITH CHARTED SETTINGS. PT JAYLEN SETTINGS WELL AT THIS TIME. HHN TX GIVEN AND NO ADVERSE REACTION NOTED. SX DONE. PT TRACH PATENT AND SECURE. AMBU BAG AT BEDSIDE. WILL CONTINUE TO MONITOR. Addendum: 07/08/18 at 2356 by MART SAM RT Amended: Links added.
[2018-07-09] VITALS (7 sets, daily range): BP systolic 107–153; BP diastolic 57–72
[2018-07-09] MEDS: IPRATROPIUM NEB FS 0.5 MG/2.5 ML AMPUL.NEB NEB SCH ×4 (00:58→19:42)
[2018-07-09] MEDS: ALBUTEROL HALF STRENGTH 1.25 MG/3 ML VIAL.NEB NEB SCH ×4 (00:58→19:42)
[2018-07-09] MEDS: GLUCERNA 1.2 1,000 ML BOTTLE NG PRN (03:00)
[2018-07-09] MEDS: MEROPENEM 500 MG in IV NS 0.9% 100 ML IV SCH ×2 (05:58→17:12)
[2018-07-09] MEDS: BLOOD SUGAR DIAGNOSTIC 1 EACH STRIP IN SCH ×4 (05:58→17:12)
[2018-07-09] MEDS: INSULIN REGULAR, HUMAN 100 UNIT/ML 3 ML VIAL SQ PRN ×2 (06:00→11:38)
--- NOTE | 2018-07-09 07:05 | NUR ---
RN NOTES RECEIVED PATIENT ON BED, NONVERBAL. TRACH DEPENDENT, TRACH TUBE:PORTEX7 IN MIDLINE POSITION, ON COOL AEROSOL AT 28%, NO SOB NOTED, NO SOB NOTED. ON TELE SR HR IN 90'S , L UPPER ARM PICC LINE SITE CLEAN, DRY AND INTACT, GLUCERNA AT 50 ML/HR RUNNING VIA GT TOLERATING WELL, NO RESIDUAL NOTED, F/C INTACT AND IN PLACED DRAINING WELL VIA GRAVITY TO WONG COLOR URINE. NO ACTIVE BLEEDING NOTED.SR UP X3, SAFETY MEASURES OBSERVED AND KEPT IN PLACED. HOB KEPT ELEVATED. ASPIRATION PRECAUTION IN PLACED. SR UP X3, CALL LIGHT WITHIN EASY REACH. WILL CONTINUE TO MONITOR .
[2018-07-09 07:07] LABS: BASOPHILS % (AUTO) 0.2 % (0.0-2.0); EOSINOPHILS % (AUTO) 23.7 % (0.0-6.0); HEMATOCRIT 25 % (39-51); LYMPHOCYTES # (AUTO) 0.6 /CMM (0.8-4.8); LYMPHOCYTES % (AUTO) 16.4 % (20.0-44.0); MEAN CORPUSCULAR HGB CONC 33 g/dl (31.0-36.0); MEAN CORPUSCULAR VOLUME 107 fL (80-96); MONOCYTES # (AUTO) 0.3 /CMM (0.1-1.30); MONOCYTES % (AUTO) 7.9 % (2.0-12.0); NEUTROPHILS # (AUTO) 1.9 /CMM (1.8-8.9); NEUTROPHILS % (AUTO) 51.8 % (43.0-81.0); RED BLOOD CELL COUNT(AUTO) 2.29 MIL/uL (4.5-6.0); WHITE BLOOD COUNT (AUTO) 3.8 K/uL (4.3-11.0)
[2018-07-09 07:09] LABS: ALBUMIN 2.2 g/dL (3.4-5.0); CALCIUM, SERUM 9.8 mg/dL (8.5-10.1); CREATININE 2.3 mg/dL (0.6-1.3); POTASSIUM 4.6 mmol/L (3.5-5.1)
[2018-07-09 07:33] LABS: PLATELET COUNT (AUTO) 19 /CMM (150-450)
[2018-07-09 08:34] LABS: BAND % (MANUAL) 1 % (0.0-5.0); EOSINOPHILS % (MANUAL) 26 % (0-4); LYMPHOCYTES % (MANUAL) 19 % (16-48); MONOCYTES % (MANUAL) 6 % (0-11.0); NEUTROPHILS % (MANUAL) 48 (42-76)
[2018-07-09] MEDS: PANTOPRAZOLE 40 MG VIAL IV SCH (08:45)
[2018-07-09] MEDS: DAKINS QUARTER STRENGTH (0.125%) 480 ML BOTTLE TOP SCH (08:48)
[2018-07-09] MEDS: HYDROGEL DRESSING 90 GM TUBE TP SCH (08:48)
[2018-07-09] MEDS: CADEXOMER IODINE 40 GM TUBE TP SCH (08:48)
[2018-07-09] MEDS: Z GUARD REMEDY 2 OZ OINT TP SCH (08:49)
[2018-07-09] MEDS: MUPIROCIN OINT 2% 22 GM TUBE SCH ×2 (08:52→22:22)
--- NOTE | 2018-07-09 09:00 | NUR ---
RN NOTES DR NORWOOD NOTIFED REGARDING PLT= 19 , NO ACTIVE BLEEDING NOTED , NO NEW ORDER GIVEN , CONTINUE TO MONITOR .
--- NOTE | 2018-07-09 12:00 | NUR ---
RN NOTES TRACH CARE DONE, PT STABLE CONTINUE TO MONITOR .
--- NOTE | 2018-07-09 18:28 | NUR ---
RN NOTES TOLERATING TF WELL, TRACH SUCTION DONE, L UPPER ARM PICC LINE SITE CLEAN,DRY AND INTACT,STEELE DRAINING TO GRAVITY, WILL ENDOSE TO SOLID PLASTERER NURSE FOR CONTINUITY OF CARE .
--- NOTE | 2018-07-09 19:30 | NUR ---
ROD RN NOTES RECEIVED PATIENT'S BEDSIDE REPORT FROM AM NURSE. PATIENT IS ON BED, NONVERBAL. TRACH DEPENDENT, TRACH TUBE:PORTEX7 , ON COOL AEROSOL AT 28%, NO SOB NOTED AT THIS TIME. ON TELE SR HR IN 90'S , L UPPER ARM PICC LINE SITE CLEAN, DRY AND INTACT, GLUCERNA AT 50 ML/HR RUNNING VIA GT TOLERATING WELL, NO RESIDUAL NOTED, F/C INTACT AND IN PLACED DRAINING WELL VIA GRAVITY TO WONG COLOR URINE, NO BLEEDING NOTED.SR UP X3, SAFETY MEASURES OBSERVED AND KEPT IN PLACED. HOB KEPT ELEVATED AT ALL TIMES. ASPIRATION PRECAUTION IN PLACE, CALL LIGHT WITHIN EASY REACH. WILL CONTINUE TO MONITOR .
--- NOTE | 2018-07-09 20:14 | NUR ---
RT NOTE PT RCVD VERA'D ON COOL AEROSOL WITH CHARTED SETTINGS. PT JAYLEN SETTINGS WELL AT THIS TIME. HHN TX GIVEN AND NO ADVERSE REACTION NOTED. SX DONE. PT TRACH PATENT AND SECURE. AMBU BAG AT BEDSIDE. WILL CONTINUE TO MONITOR. Addendum: 07/09/18 at 2015 by MART SAM RT Amended: Links added.
[2018-07-10] VITALS (8 sets, daily range): BP systolic 104–129; BP diastolic 54–65
[2018-07-10] MEDS: BLOOD SUGAR DIAGNOSTIC 1 EACH STRIP IN SCH ×4 (00:20→17:35)
[2018-07-10] MEDS: INSULIN REGULAR, HUMAN 100 UNIT/ML 3 ML VIAL SQ PRN ×2 (00:26→12:11)
[2018-07-10] MEDS: IPRATROPIUM NEB FS 0.5 MG/2.5 ML AMPUL.NEB NEB SCH ×4 (00:55→20:20)
[2018-07-10] MEDS: ALBUTEROL HALF STRENGTH 1.25 MG/3 ML VIAL.NEB NEB SCH ×4 (00:55→20:24)
[2018-07-10] MEDS: GLUCERNA 1.2 1,000 ML BOTTLE NG PRN (02:18)
--- NOTE | 2018-07-10 07:55 | NUR ---
telephonic nurse note patient in bed awake, alert with confusion trying to remove trach , with trach to cooler aerosol 28% fio2on 5l , sat 94% at this time ,, on tele monitor sr hr 93 , with Land cath to gravity with yellow color urine , with g tube feeding as ordered, tolerated well, keep hob elevated at all time , lt upper arm picc line in place, tko at this time, bed in lowest and locked position , call light within reach. chest x ray done as ordered, will cont to monitor closely
[2018-07-10 08:28] LABS: BASOPHILS % (AUTO) 0.8 % (0.0-2.0); EOSINOPHILS % (AUTO) 18.2 % (0.0-6.0); HEMATOCRIT 22 % (39-51); HEMOGLOBIN 7.4 g/dL (13.5-17.5); LYMPHOCYTES # (AUTO) 0.7 /CMM (0.8-4.8); LYMPHOCYTES % (AUTO) 14.4 % (20.0-44.0); MEAN CORPUSCULAR HGB CONC 33 g/dl (31.0-36.0); MEAN CORPUSCULAR VOLUME 107 fL (80-96); MONOCYTES # (AUTO) 0.3 /CMM (0.1-1.30); MONOCYTES % (AUTO) 6.9 % (2.0-12.0); NEUTROPHILS # (AUTO) 2.8 /CMM (1.8-8.9); NEUTROPHILS % (AUTO) 59.7 % (43.0-81.0); RED BLOOD CELL COUNT(AUTO) 2.07 MIL/uL (4.5-6.0); WHITE BLOOD COUNT (AUTO) 4.6 K/uL (4.3-11.0)
[2018-07-10 08:32] LABS: PLATELET COUNT (AUTO) 29 /CMM (150-450)
[2018-07-10 08:34] LABS: CALCIUM, SERUM 9.7 mg/dL (8.5-10.1); CREATININE 2.1 mg/dL (0.6-1.3); POTASSIUM 4.7 mmol/L (3.5-5.1)
[2018-07-10 08:52] LABS: EOSINOPHILS % (MANUAL) 19 % (0-4); LYMPHOCYTES % (MANUAL) 13 % (16-48); MONOCYTES % (MANUAL) 4 % (0-11.0); NEUTROPHILS % (MANUAL) 64 (42-76)
[2018-07-10] MEDS: FAMOTIDINE (20 MG) 20 MG TABLET PO SCH (09:17)
[2018-07-10] MEDS: DAKINS QUARTER STRENGTH (0.125%) 480 ML BOTTLE TOP SCH (09:17)
[2018-07-10] MEDS: HYDROGEL DRESSING 90 GM TUBE TP SCH (09:18)
[2018-07-10] MEDS: MUPIROCIN OINT 2% 22 GM TUBE SCH (09:18)
[2018-07-10] MEDS: CADEXOMER IODINE 40 GM TUBE TP SCH (09:18)
[2018-07-10] MEDS: Z GUARD REMEDY 2 OZ OINT TP SCH (09:19)
[2018-07-10] MEDS: ACETAMINOPHEN 650 MG/20.3 ML UDC GT PRN ×2 (09:54→22:22)
--- NOTE | 2018-07-10 09:58 | NUR ---
SPRINKLER FITTER HELPER NOTE DR HOLLIS AT BEDSIDE ,AWARE SAT 94% EARLIER, ALSO REPORTED THAT PATIENT IN BODY PAIN, OK TO GIVE TYLENOL, ORDER CARRIED OUT
--- NOTE | 2018-07-10 10:29 | NUR ---
COMMERCIAL CRABBER NOTE SPOKE WITH DR MICHAEL NOTIFIED THAT NA 156 TODAY, ORDERED FREE WATER 4 TIME A DAY
--- NOTE | 2018-07-10 14:00 | NUR ---
MOBILE DEVICE ENGINEER NOTE SEEN BY DR MERRILL AWARE THAT NA 156 ,PER DR ALEC JOHNSON TO GIVE FREE WATER VIA G TUBE ,WILL F\U
--- NOTE | 2018-07-10 17:00 | NUR ---
ANGIOGRAPHY NURSE NOTE DURING REPOSITION NOTED THAT PICC LINE SITE BLEEDING SMALL AMT, PLATELETS 29 REINFORCED DRESSING DONE, WILL MONITOR CLOSELY Addendum: 07/10/18 at 1800 by KELLIE BARRIGA RN NO BLEEDING NOTED ON DRESSING FROM PICC LINE SITE , WILL CONT TO MONITOR CLOSELY
--- NOTE | 2018-07-10 18:20 | NUR ---
BLACK PULLER NOTE ALL NEEDS ATTENDED, SAT 100 %, ON COLLER AEROSOL, CONT ON G TUBE FEEDING ORDERED TOLERATED WELL , KEEP HOB ELEVATED ,WILL CONT TO MONITOR CLOSELY
--- NOTE | 2018-07-10 19:40 | NUR ---
ROD RN NOTES RECEIVED PATIENT'S BEDSIDE REPORT FROM AM NURSE. PATIENT IS ON BED, NONVERBAL. TRACH DEPENDENT, TRACH TUBE:PORTEX7 , ON COOL AEROSOL AT 28%, NO SOB NOTED AT THIS TIME. ON TELE SR HR IN 80'S , L UPPER ARM PICC LINE SITE CLEAN, DRY AND INTACT, GLUCERNA AT 50 ML/HR RUNNING VIA GT TOLERATING WELL, NO RESIDUAL NOTED, F/C INTACT AND IN PLACED DRAINING WELL VIA GRAVITY TO YELLOW COLOR URINE, NO BLEEDING NOTED.SR UP X3, SAFETY MEASURES OBSERVED AND KEPT IN PLACED. HOB KEPT ELEVATED AT ALL TIMES. ASPIRATION PRECAUTION IN PLACE, CALL LIGHT WITHIN EASY REACH. WILL CONTINUE TO MONITOR .
[2018-07-11] VITALS: BP 104/58
[2018-07-11] MEDS: BLOOD SUGAR DIAGNOSTIC 1 EACH STRIP IN SCH ×3 (01:00→12:59)
[2018-07-11] MEDS: GLUCERNA 1.2 1,000 ML BOTTLE NG PRN (02:02)
[2018-07-11] MEDS: ALBUTEROL HALF STRENGTH 1.25 MG/3 ML VIAL.NEB NEB SCH ×3 (02:47→13:35)
[2018-07-11] MEDS: IPRATROPIUM NEB FS 0.5 MG/2.5 ML AMPUL.NEB NEB SCH ×3 (02:47→13:35)
[2018-07-11 04:00] VITALS: BP 104/54
[2018-07-11 06:19] VITALS: BP 107/54
[2018-07-11] MEDS: INSULIN REGULAR, HUMAN 100 UNIT/ML 3 ML VIAL SQ PRN (06:33)
[2018-07-11 07:26] LABS: BASOPHILS % (AUTO) 0.1 % (0.0-2.0); EOSINOPHILS % (AUTO) 18.7 % (0.0-6.0); HEMATOCRIT 22 % (39-51); HEMOGLOBIN 7.2 g/dL (13.5-17.5); LYMPHOCYTES # (AUTO) 0.7 /CMM (0.8-4.8); LYMPHOCYTES % (AUTO) 13.9 % (20.0-44.0); MEAN CORPUSCULAR HGB CONC 33 g/dl (31.0-36.0); MEAN CORPUSCULAR VOLUME 107 fL (80-96); MONOCYTES # (AUTO) 0.4 /CMM (0.1-1.30); MONOCYTES % (AUTO) 7.1 % (2.0-12.0); NEUTROPHILS % (AUTO) 60.2 % (43.0-81.0); RED BLOOD CELL COUNT(AUTO) 2.04 MIL/uL (4.5-6.0)
[2018-07-11 07:47] LABS: PLATELET COUNT (AUTO) 31 /CMM (150-450)
[2018-07-11 07:50] LABS: CALCIUM, SERUM 9.3 mg/dL (8.5-10.1); CREATININE 2.2 mg/dL (0.6-1.3); PHOSPHORUS 4.3 mg/dL (2.5-4.9); POTASSIUM 4.7 mmol/L (3.5-5.1)
[2018-07-11 08:00] VITALS: BP 128/66
--- NOTE | 2018-07-11 08:00 | NUR ---
ROD RN NOTES RECEIVED PATIENT NONVERBAL. TRACH DEPENDENT, TRACH TUBE:PORTEX7 , ON COOL AEROSOL AT 28%, NO SOB NOTED AT THIS TIME. ON TELE SR HR IN 80'S , L UPPER ARM PICC LINE SITE CLEAN, DRY AND INTACT, GLUCERNA AT 50 ML/HR RUNNING VIA GT TOLERATING WELL, NO RESIDUAL NOTED, F/C INTACT AND IN PLACED DRAINING WELL VIA GRAVITY TO YELLOW COLOR URINE, NO BLEEDING NOTED.SR UP X3, SAFETY MEASURES OBSERVED AND KEPT IN PLACED. HOB KEPT ELEVATED AT ALL TIMES. ASPIRATION PRECAUTION IN PLACE, TURNED EVERY TWO HRS.WOUND TX DONE ORDERED.CALL LIGHT WITHIN EASY REACH. WILL CONTINUE TO MONITOR
[2018-07-11] MEDS: FAMOTIDINE (20 MG) 20 MG TABLET PO SCH (08:49)
[2018-07-11] MEDS: HYDROGEL DRESSING 90 GM TUBE TP SCH (08:51)
[2018-07-11] MEDS: DAKINS QUARTER STRENGTH (0.125%) 480 ML BOTTLE TOP SCH (08:51)
[2018-07-11] MEDS: Z GUARD REMEDY 2 OZ OINT TP SCH (08:52)
[2018-07-11] MEDS: CADEXOMER IODINE 40 GM TUBE TP SCH (08:53)
[2018-07-11 09:18] LABS: BAND % (MANUAL) 4 % (0.0-5.0); EOSINOPHILS % (MANUAL) 19 % (0-4); LYMPHOCYTES % (MANUAL) 15 % (16-48); MONOCYTES % (MANUAL) 1 % (0-11.0); NEUTROPHILS % (MANUAL) 61 (42-76)
[2018-07-11] MEDS ORDERED: CADE40GE2 TP (11:54)
[2018-07-11] MEDS ORDERED: SODI473S8 TOP (11:54)
[2018-07-11] MEDS ORDERED: FAMO20TA80 PO (11:54)
[2018-07-11] MEDS ORDERED: Hydrogel Dressing TP (11:54)
[2018-07-11 12:00] VITALS: BP 123/65
--- NOTE | 2018-07-11 16:00 | NUR ---
DISCHARGED TO [facility] VIA AMBULANCE WITH STABLE V/S.REPORT CALLED TO MIMI CORONADO OF [facility].PICC LINE TO JAIR REMOVED WITHOUT BLEEDING NOTED.PT TOLERATED WELL.WOUND TX DONE AND CHANGED DRESSINGS NEEDED MADE SOFT BROWN BM.GOOD PERICARE DONE.STABLE V/S WITH NO S/S OF PAIN OR DISTRESS.
== END 2018-07-11 16:00 | DRG 871 ==
LOC: ER 11:23 → TELE 14:01 → MED 14:09 → ICU 14:14 → TELE-TD 07-05 17:39 → TELE1 07-05 19:13 → TELE-TD 07-05 19:20 → TELE1 07-09 10:32
PROVIDERS: ADMIT Student in an Organized Health Care Education/Training Program; ATTEND Nurse Practitioner Acute Care
PROC: 05H633Z Insertion of Infusion Device into Left Subclavian Vein, Percutaneous Approach (ICD-10-PCS; 2018-07-02)
PROC: B547ZZA Ultrasonography of Left Subclavian Vein, Guidance (ICD-10-PCS; 2018-07-02)
PROC: 02HV33Z Insertion of Infusion Device into Superior Vena Cava, Percutaneous Approach (ICD-10-PCS; principal; 2018-07-03)
PROC: B548ZZA Ultrasonography of Superior Vena Cava, Guidance (ICD-10-PCS; 2018-07-03)
DX: A41.9 Sepsis, unspecified organism (principal); R65.21 Severe sepsis with septic shock; J18.9 Pneumonia, unspecified organism; N17.0 Acute kidney failure with tubular necrosis; E43 Unspecified severe protein-calorie malnutrition; L89.313 Pressure ulcer of right buttock, stage 3; L89.223 Pressure ulcer of left hip, stage 3; N39.0 Urinary tract infection, site not specified; G93.40 Encephalopathy, unspecified; J96.11 Chronic respiratory failure with hypoxia; E87.0 Hyperosmolality and hypernatremia; L03.115 Cellulitis of right lower limb; Z99.11 Dependence on respirator [ventilator] status; D53.9 Nutritional anemia, unspecified; D69.59 Other secondary thrombocytopenia; E11.22 Type 2 diabetes mellitus with diabetic chronic kidney disease; E11.65 Type 2 diabetes mellitus with hyperglycemia; I12.9 Hypertensive chronic kidney disease with stage 1 through stage 4 chronic kidney disease, or unspecified chronic kidney disease; K21.9 Gastro-esophageal reflux disease without esophagitis; K70.30 Alcoholic cirrhosis of liver without ascites; Z16.12 Extended spectrum beta lactamase (ESBL) resistance; Z86.73 Personal history of transient ischemic attack (TIA), and cerebral infarction without residual deficits; Z93.0 Tracheostomy status; Z93.1 Gastrostomy status; R13.10 Dysphagia, unspecified; N18.9 Chronic kidney disease, unspecified; E87.5 Hyperkalemia; E11.42 Type 2 diabetes mellitus with diabetic polyneuropathy; Z68.21 Body mass index [BMI] 21.0-21.9, adult; E83.52 Hypercalcemia; K43.9 Ventral hernia without obstruction or gangrene; B96.20 Unspecified Escherichia coli [E. coli] as the cause of diseases classified elsewhere; M24.561 Contracture, right knee; L89.899 Pressure ulcer of other site, unspecified stage; Z74.01 Bed confinement status; L89.150 Pressure ulcer of sacral region, unstageable; L89.320 Pressure ulcer of left buttock, unstageable; Z79.4 Long term (current) use of insulin
CPT/HCPCS: 31720; 36415; 36569; 36600; 71045-TC; 73630-TC; 80048-TC; 80053-TC; 80076-TC; 80202-TC; 81000-TC; 82040-TC; 82310-TC; 82533; 82803-TC; 82962-TC; 83605-TC; 83735-TC; 83970; 84100-TC; 84484-TC; 85025-TC; 85396; 85730-TC; 86022; 87040-TC; 87070-TC; 87081-TC; 87086-TC; 87186-TC; 94640-TC; 94760-TC; 94762-TC; A4216; A4606; A6248; A6253; A6402; A6403; C1751; C9113; G0378; J1815; J1956; J2185; J3370; J3490; J7030; J7050; J7060; P9047; Z7610

== ENCOUNTER 2018-07-21 11:53 | Inpatient (IN) | payer MEDICAID, MEDICARE ==
[2018-07-21] VITALS (17 sets, daily range): BP systolic 49–107; BP diastolic 30–60
[~2018-07-21] VITALS: Ht 170.2 cm; Wt 57.2 kg
[~2018-07-21 11:53] MED LIST changes: +ACET650S26 GT; +ALPR0.25 GT; -ALPR0.25 PO; +AMIN30LI27 GT; -AMLO5TAB7 GT; +AMLO5TAB9 GT; +BISA10SU8 RC; +CADE40GE2 TP; -CHLO473M3 MM; +FAMO20TA80 PO; +FERR300L GT; -FLUC100T8 PO; +Hydrogel Dressing TP; +IPRA3AMP23 IH; +MAGN400O6 GT; +MULT-447 GT; +NA P133E RC; -PANT40TA2 PO; +SODI473S8 TOP; +VIT500LI GT
[2018-07-21] MEDS ORDERED: DOPamine 400MG/D5W 250ML RTU 0 ML IV ONE (11:59)
[2018-07-21] MEDS ORDERED: MEROPENEM 1 G in IV NS 0.9% 100 ML IV ONE (12:00)
[2018-07-21] MEDS ORDERED: IV NS 0.9% 1,000 ML BAG IV ONE (12:00)
[2018-07-21] MEDS ORDERED: NOREPINEPHRINE 8 MG in IV D5W 500 ML IV ONE (12:00)
[2018-07-21] MEDS ORDERED: VANCOMYCIN 1 GM in IV D5W 250 ML IV ONE (12:00)
[2018-07-21] MEDS ORDERED: DEXTROSE 50%-WATER 50 ML DISP.SYRIN IVP ONE (12:00)
[2018-07-21] MEDS ORDERED: DEXTROSE 50%-WATER 50 ML DISP.SYRIN ONE (12:04)
--- NOTE | 2018-07-21 12:15 | NUR ---
RT NOTE: LATE ENTRY- PATIENT RECEIVED WITH #7 PORTEX TRACH MANUALLY VENTILATED VIA AMBU BAG BY TRANSPORT TEAM. PATIENT WAS PLACED ON ESPRIT VENT. SETTING PER . ALARMS SET AND AUDIBLE. SUCTIONED SMALL AMOUNT OF THICK WAGNER SECRETIONS. AMBU BAG AT [facility].
--- NOTE | 2018-07-21 12:15 | NUR ---
VENT SETTINGS, AC 14 TV 500, FIO2 100%
[2018-07-21] MEDS ORDERED: ZINC220C8 GT (12:16)
[2018-07-21] MEDS ORDERED: DOCU50LI GT (12:16)
[2018-07-21] MEDS ORDERED: CHLO473M5 MM (12:16)
--- NOTE | 2018-07-21 12:16 | NUR ---
DR FOWLER AT BEDSIDE FOR CENTRAL LINE PLACEMENT.
--- NOTE | 2018-07-21 12:40 | NUR ---
LEVEPHED DRIP STARTED. TITRATED TO EFFECT
[2018-07-21 12:41] LABS: BASOPHILS % (AUTO) 0.2 % (0.0-2.0); EOSINOPHILS % (AUTO) 0.7 % (0.0-6.0); HEMATOCRIT 23 % (39-51); HEMOGLOBIN 7.2 g/dL (13.5-17.5); LYMPHOCYTES # (AUTO) 0.3 /CMM (0.8-4.8); LYMPHOCYTES % (AUTO) 2.2 % (20.0-44.0); MEAN CORPUSCULAR HGB CONC 31 g/dl (31.0-36.0); MEAN CORPUSCULAR VOLUME 116 fL (80-96); MONOCYTES # (AUTO) 0.4 /CMM (0.1-1.30); MONOCYTES % (AUTO) 3.8 % (2.0-12.0); NEUTROPHILS # (AUTO) 10.6 /CMM (1.8-8.9); NEUTROPHILS % (AUTO) 93.1 % (43.0-81.0); WHITE BLOOD COUNT (AUTO) 11.4 K/uL (4.3-11.0)
--- NOTE | 2018-07-21 12:42 | NUR ---
RADIOLOGY AT BEDSIDE FOR CHEST XRAY.
[2018-07-21 12:43] LABS: PLATELET COUNT (AUTO) 29 /CMM (150-450)
--- NOTE | 2018-07-21 12:58 | NUR ---
CALLED NURSING SUP REQUESTED ICU BED FOR THIS PATIENT.
[2018-07-21 13:01] LABS: ALANINE AMINOTRANSFERASE 32 U/L (12-78); ALKALINE PHOSPHATASE 147 U/L (46-116); ASPARTATE AMINOTRANSFERASE 69 U/L (15-37); BILIRUBIN,DIRECT 0.3 mg/dL (0.0-0.2); BILIRUBIN,TOTAL 0.7 mg/dL (0.2-1.0); CARBON DIOXIDE 20 mmol/L (21-32); CHLORIDE 120 mmol/L (98-107); CREATININE 2.6 mg/dL (0.6-1.3); GLUCOSE 162 mg/dL (74-106); POTASSIUM 3.8 mmol/L (3.5-5.1); SODIUM SERUM 151 mmol/L (136-145); TOTAL PROTEIN, SERUM 6.1 g/dL (6.4-8.2)
[2018-07-21 13:07] LABS: UREA NITROGEN, BLOOD 95 mg/dL (7-18)
[2018-07-21 13:08] LABS: ALBUMIN 1.3 g/dL (3.4-5.0)
--- NOTE | 2018-07-21 13:48 | NUR ---
PANEL ON-CALL PAGED
[2018-07-21 14:38] LABS: ABG BASE EXCESS -11.3 mmol/L; ABG PCO2 41.8 mmHg (35.0-45.0); ABG PH 7.198 (7.350-7.450); ABG PO2 373.6 mmHg (75.0-100.0); AaDO2 297.6 mmHg; COHb 0.6 % (0.5-1.5); MetHb 0.9 % (0.0-1.5); O2Hb 97.5 % (94.0-97.0); PEEP,BG 0 cm H2O; SITE, ABG Right Brachial; VT, ABG 500 mL
--- NOTE | 2018-07-21 15:07 | NUR ---
DR FOWLER MADE AWARE OF LACTIC ACID. VERBAL ORDER FOR 1L NS BOLUS. CARRIED OUT.
[2018-07-21] MEDS ORDERED: IV NS 0.9% 1,000 ML BAG IV PRN (15:30)
--- NOTE | 2018-07-21 15:37 | NUR ---
REPORT GIVEN TO CHARGE NURSE GIL. BJ CARRILLO.
[2018-07-21 15:51] LABS: BAND % (MANUAL) 38 % (0.0-5.0); LYMPHOCYTES % (MANUAL) 4 % (16-48); NEUTROPHILS % (MANUAL) 46 (42-76)
[2018-07-21 15:52] LABS: MONOCYTES % (MANUAL) 7 % (0-11.0); MYELOCYTES % 5 % (0-0)
[2018-07-21] MEDS ORDERED: IV NS 0.9% 1,000 ML IV PRN (17:00)
--- NOTE | 2018-07-21 17:00 | NUR ---
RESIDENT HALL DIRECTOR. CEDRIC CHANGED PER VA. BALLISTICS PROFESSOR. PT HAS WATERY STOOL FLEXA SEAL PLACED. STOOL SEND FOR C DIFF.
[2018-07-21] MEDS ORDERED: FEE PK DOSING 1 MIN EA MC ONE (17:02)
[2018-07-21] MEDS: NOREPINEPHRINE 16 MG in IV D5W 500 ML IV PRN (17:13)
[2018-07-21] MEDS ORDERED: DEXTROSE 50%-WATER 50 ML DISP.SYRIN IV PRN (17:30)
[2018-07-21] MEDS ORDERED: PHENYLEPHRINE 80 MG in IV NS 0.9% 250 ML IV PRN (18:00)
[2018-07-21] MEDS: BLOOD SUGAR DIAGNOSTIC 1 EACH STRIP IN SCH ×2 (18:05→23:40)
--- NOTE | 2018-07-21 19:37 | NUR ---
MULTIPLE LAUNCH ROCKET SYSTEM CREWMEMBER, ADMISSION. RECEIVED THE PT FROM ER VIA GURNEY. PT OPEN EYES, NONVERBAL. DOES NOT FOLLOW COMMANDS, TRACH TO VENT CONNECTED, PORTEX#7, TV 500,FIO2 50%. SAT 100%. NO ACUTE DISTRESS NOTED, INSPECTOR RUBBER STAMP DIE SHOWING NSR, IV RT IJ TRIPLE LUMEN. LEVOPHED 30MCG/MIN, NS 150ML/H,GT INTACT. CLAMPED, HOB ELEVATED, DANILO LED CONTRACTED. FC PATENT, FLEXA SEAL INTACT. MULTIPLE WOUND NOTED. PICTURE TAKEN , WOUND CONSULTATION ORDERED. KCL MATTRESS PLACED. WILL CONTINUE TO MONITOR VITALS.
[2018-07-21] MEDS: MEROPENEM 500 MG in IV NS 0.9% 50 ML IV SCH (20:53)
[2018-07-21] MEDS ORDERED: Sodium Bicarbonate 150 MEQ in IV D5/ 0.9% NACL 1,000 ML IV PRN (23:00)
[2018-07-21] MEDS ORDERED: SODIUM BICARBONATE SYR 50 MEQ/50 ML DISP.SYRIN ONE (23:18)
[2018-07-22] VITALS (86 sets, daily range): BP systolic 67–121; BP diastolic 33–67
[2018-07-22 01:07] LABS: CALCIUM, SERUM 9.2 mg/dL (8.5-10.1); CREATININE 2.4 mg/dL (0.6-1.3); POTASSIUM 3.4 mmol/L (3.5-5.1)
--- NOTE | 2018-07-22 01:30 | NUR ---
GLASS BLOWER HELPER. FC CHANGED. NEW STEELE 16FG PLACED WITH OUT DIFFICULT, NO BLEEDING
--- NOTE | 2018-07-22 01:33 | NUR ---
CT ABDOMEN TAKEN. WITH ACLS PROTOCOL.
[2018-07-22 01:45] LABS: APPEARANCE,URINE SL CLOUDY (CLEAR); BILIRUBIN,URINE NEGATIVE (NEGATIVE); BLOOD, URINE 3+ Ery/uL (NEGATIVE); COLOR,URINE YELLOW (YELLOW); KETONES,URINE NEGATIVE (NEGATIVE); LEUKOCYTE ESTERASE ,URINE 2+ (NEGATIVE); NITRITE, URINE NEGATIVE (NEGATIVE); PROTEIN,URINE 1+ mg/dl (NEGATIVE); UGLUCOSE NEGATIVE (NEGATIVE); UROBILINOGEN,URINE 0.2 EU/dL (0.2)
[2018-07-22] MEDS ORDERED: NOREPINEPHRINE 4 MG/4 ML AMPUL IV ONE (02:11)
[2018-07-22] MEDS: NOREPINEPHRINE 16 MG in IV D5W 500 ML IV PRN ×3 (02:25→19:08)
[2018-07-22 02:54] LABS: RBC,URINE 21-50 /HPF (0-2)
[2018-07-22 02:55] LABS: BACTERIA,URINE Moderate /HPF (None Seen); COARSE GRANULAR CASTS,URINE Few /LPF (None Seen); SQUAMOUS EPITHELIAL CELL,UR Few /HPF (None Seen); URINE AMORPHOUS URATE Few /HPF (None Seen)
--- NOTE | 2018-07-22 04:42 | NUR ---
TRADEMARK PARALEGAL. AM CARE, ORAL CARE, BED BATH GIVEN LINEN CHANGED, REMAINING SAME VENT SETTING TOLERATED WELL. SAT 99%, NO ACUTE DISTRESS NOTED. GRINDER TENDER SHOWING NSR. IV RT IJ TRIPLE LUMEN. IVF D5NS IN 3 AMP @150ML/H. FC PATENT, URINE DRAINING. GT SITE LEAKING, PT IS NPO FLEXA SEAL INTACT. TURN AND REPOSITION Q2H. TEMPERATURE IS LOW. WAITING FOR BENIGNO LORENZO
[2018-07-22] MEDS: BLOOD SUGAR DIAGNOSTIC 1 EACH STRIP IN SCH ×4 (05:09→23:24)
[2018-07-22 05:32] LABS: CALCIUM, SERUM 8.9 mg/dL (8.5-10.1); CREATININE 2.4 mg/dL (0.6-1.3); POTASSIUM 3.3 mmol/L (3.5-5.1)
--- NOTE | 2018-07-22 07:15 | NUR ---
RN INITIAL NOTES: Rec'd pt awake on bed, not in any distress. On MV via trach, sating at 100%. On telemonitor ST. Has R IJ TLC w/ Levo x 30 mcg & Bicarb drip x 150 cc/hr. Has L AC G18, SL. Has GT clamped at this time d/t leaking at the site. Has FC draining to BSB. Has flexiseal d/t episode of diarrhea. Provided comfort & safety measures. Bed kept low & in locked pos. Call light w/in reach. Will cont to monitor & attend pt needs.
[2018-07-22 08:03] LABS: BASOPHILS % (AUTO) 0.1 % (0.0-2.0); EOSINOPHILS % (AUTO) 2.6 % (0.0-6.0); HEMATOCRIT 25 % (39-51); HEMOGLOBIN 7.7 g/dL (13.5-17.5); LYMPHOCYTES # (AUTO) 0.8 /CMM (0.8-4.8); LYMPHOCYTES % (AUTO) 2.4 % (20.0-44.0); MEAN CORPUSCULAR HGB CONC 31 g/dl (31.0-36.0); MEAN CORPUSCULAR VOLUME 117 fL (80-96); MONOCYTES # (AUTO) 0.9 /CMM (0.1-1.30); MONOCYTES % (AUTO) 2.8 % (2.0-12.0); NEUTROPHILS # (AUTO) 29.3 /CMM (1.8-8.9); NEUTROPHILS % (AUTO) 92.1 % (43.0-81.0); PLATELET COUNT (AUTO) 87 /CMM (150-450); RED BLOOD CELL COUNT(AUTO) 2.14 MIL/uL (4.5-6.0)
[2018-07-22] MEDS: VANCOMYCIN 500 MG in IV D5W 100 ML IV SCH (08:04)
[2018-07-22] MEDS: MEROPENEM 500 MG in IV NS 0.9% 50 ML IV SCH ×2 (08:05→20:45)
[2018-07-22 09:00] LABS: WHITE BLOOD COUNT (AUTO) 31.8 K/uL (4.3-11.0)
[2018-07-22] MEDS: Sodium Acetate 150 MEQ in IV D5W 1,000 ML IV PRN ×2 (09:50→17:31)
--- NOTE | 2018-07-22 10:00 | NUR ---
Pt seen & examined by Dr. Berry & ARAMIS Downs.
[2018-07-22] MEDS: POTASSIUM CL. PREMIX PERIPHER. 50 ML IV SCH ×2 (10:20→11:25)
[2018-07-22] MEDS: INSULIN REGULAR, HUMAN 100 UNIT/ML 3 ML VIAL SQ PRN ×3 (11:33→23:29)
[2018-07-22 13:03] LABS: BAND % (MANUAL) 61 % (0.0-5.0); EOSINOPHILS % (MANUAL) 2 % (0-4); LYMPHOCYTES % (MANUAL) 5 % (16-48); MONOCYTES % (MANUAL) 2 % (0-11.0); NEUTROPHILS % (MANUAL) 30 (42-76)
[2018-07-22 16:22] LABS: ABG BASE EXCESS -4.7 mmol/L; ABG OXYGEN SATURATION 97.1 % (92.0-98.5); ABG PCO2 38.6 mmHg (35.0-45.0); ABG PH 7.344 (7.350-7.450); ABG PO2 93.9 mmHg (75.0-100.0); AaDO2 219.2 mmHg; COHb 1.1 % (0.5-1.5); MetHb 0.2 % (0.0-1.5); O2Hb 95.8 % (94.0-97.0); PEEP,BG 0 cm H2O; SITE, ABG Right Radial; VT, ABG 500 mL
--- NOTE | 2018-07-22 18:49 | NUR ---
RN CLOSING NOTES: No significant changes noted w/in shift. Pt tolerated current MV settings via trach. On telemonitor still ST. R IJ TLC kept patent & intact w/ Levo x 30 mcg & Na Acetate x 150 cc/hr. Has L AC G18, SL. GT kept clamped whole shift d/t leaking at the site. FC & flexiseal kept patent & intact draining to BSB. Kept well rested. Needs attended. Bed kept low & in locked pos. Call light w/in reach. Will endorse to PM RN for LEENA. ABG was relayed to Dr. Minor, per RT to adjust FiO2 at 45%.
--- NOTE | 2018-07-22 19:54 | NUR ---
RECEIVED PT INTUBATED. PT TOLERATING VENT SETTINGS. SX'D FOR MOD AMT OF YELLOW SECRETIONS. ETT SECURE, CUFF ALLIGATOR HUNTER. VENT ALARMS SET AND AUDIBLE. AMBU BAG AT BEDSIDE. VENT PLUGGED INTO RED OUTLET. WILL CONTINUE TO MONITOR. Addendum: 07/22/18 at 1953 by RANJITH SAN RT Amended: Links added. Addendum: 07/22/18 at 2012 by RANJITH SAN RT RECEIVED PT TRACHED. TOLERATING VENT SETTING WELL. SX'D MOD AMT OF YELLOW/WHITE SECRETIONS. TRACH SECURED AND PATENT, CUFF ALLIGATOR HUNTER. ALL VENT ALARMS SET AND AUDIBLE. AMBU BAG AT BEDSIDE. VENT PLUGGED INTO RED OUTLET. WILL CONTINUE TO MONITOR.
--- NOTE | 2018-07-22 22:45 | NUR ---
TECHNICAL SERVICE REP NOTES RECEIVED CALL FROM LAB, SPOKE TO NICOLASA. PER GIORGIO, URINE SPECIMEN IS NOT ABLE TO BE USED. NEW SPECMEN OBTAINED USING STERILE TECHNIQUE, LAB CALLED FOR LEAD TECHNICIAN
[2018-07-22] MEDS ORDERED: LEVOFLOXACIN 750 MG /D5W 150ML 750 MG in PREMIX 1 EA IV SCH (23:00)
[2018-07-22] MEDS ORDERED: LEVOFLOXACIN 750 MG /D5W 150ML 150 ML IV ONE (23:19)
[2018-07-23] VITALS (88 sets, daily range): BP systolic 78–132; BP diastolic 41–71
--- NOTE | 2018-07-23 | NUR ---
CHEMICAL MILLING PROCESSOR NOTES PER CHARGE NURSE ED, NO NEED TO TAKE PHOTOGRAPHS OF WOUNDS/SKIN ISSUES SINCE PATIENT WAS RECENTLY ADMITTED
[2018-07-23 00:47] LABS: APPEARANCE,URINE Slightly Cloudy (CLEAR); COLOR,URINE YELLOW (YELLOW)
[2018-07-23 00:48] LABS: BILIRUBIN,URINE NEGATIVE (NEGATIVE); BLOOD, URINE 3+ Ery/uL (NEGATIVE); CREATININE, URINE 14.5 MG/DL (30.0-125.0); KETONES,URINE NEGATIVE (NEGATIVE); LEUKOCYTE ESTERASE ,URINE 2+ (NEGATIVE); NITRITE, URINE NEGATIVE (NEGATIVE); PROTEIN,URINE 1+ mg/dl (NEGATIVE); UGLUCOSE NEGATIVE (NEGATIVE); URINE TOTAL PROTEIN 91.4 mg/dL (0-11.9); UROBILINOGEN,URINE 0.2 EU/dL (0.2)
[2018-07-23 00:51] LABS: BACTERIA,URINE Moderate /HPF (None Seen); RBC,URINE TOO NUMEROUS TO COUN /HPF (0-2); SQUAMOUS EPITHELIAL CELL,UR Rare /HPF (None Seen); WBC,URINE 81-100 /HPF (0-3)
[2018-07-23] MEDS: VANCOMYCIN 500 MG in IV D5W 100 ML IV SCH ×2 (02:13→19:57)
[2018-07-23] MEDS: Sodium Acetate 150 MEQ in IV D5W 1,000 ML IV PRN ×3 (02:14→17:16)
[2018-07-23] MEDS: NOREPINEPHRINE 16 MG in IV D5W 500 ML IV PRN ×2 (02:17→13:55)
[2018-07-23 03:41] LABS: EOSINOPHIL,URINE None Seen
[2018-07-23 05:15] LABS: EOSINOPHILS % (AUTO) 0.2 % (0.0-6.0); HEMATOCRIT 21 % (39-51); LYMPHOCYTES # (AUTO) 0.7 /CMM (0.8-4.8); LYMPHOCYTES % (AUTO) 2.1 % (20.0-44.0); MEAN CORPUSCULAR HGB CONC 32 g/dl (31.0-36.0); MEAN CORPUSCULAR VOLUME 111 fL (80-96); MONOCYTES # (AUTO) 1.3 /CMM (0.1-1.30); MONOCYTES % (AUTO) 3.7 % (2.0-12.0); NEUTROPHILS # (AUTO) 31.8 /CMM (1.8-8.9)
[2018-07-23 05:33] LABS: CREATINE KINASE, TOTAL 115 U/L (39-308)
[2018-07-23 05:36] LABS: ALANINE AMINOTRANSFERASE 45 U/L (12-78); ALKALINE PHOSPHATASE 163 U/L (46-116); ASPARTATE AMINOTRANSFERASE 96 U/L (15-37); BILIRUBIN,TOTAL 0.7 mg/dL (0.2-1.0); CARBON DIOXIDE 27 mmol/L (21-32); CHLORIDE 111 mmol/L (98-107); CREATININE 2.3 mg/dL (0.6-1.3); GLUCOSE 229 mg/dL (74-106); MAGNESIUM 1.8 mg/dL (1.8-2.4); PHOSPHORUS 3.4 mg/dL (2.5-4.9); POTASSIUM 3.5 mmol/L (3.5-5.1); SODIUM SERUM 145 mmol/L (136-145); TOTAL PROTEIN, SERUM 6.2 g/dL (6.4-8.2)
[2018-07-23 05:37] LABS: RED BLOOD CELL COUNT(AUTO) 1.86 MIL/uL (4.5-6.0)
[2018-07-23 05:39] LABS: HEMOGLOBIN 6.7 g/dL (13.5-17.5); PLATELET COUNT (AUTO) 12 /CMM (150-450); WHITE BLOOD COUNT (AUTO) 33.9 K/uL (4.3-11.0)
[2018-07-23 05:48] LABS: LYMPHOCYTES % (MANUAL) 2 % (16-48); MONOCYTES % (MANUAL) 2 % (0-11.0)
[2018-07-23 05:49] LABS: ALBUMIN 1.3 g/dL (3.4-5.0); BAND % (MANUAL) 38 % (0.0-5.0); NEUTROPHILS % (MANUAL) 58 (42-76); UREA NITROGEN, BLOOD 87 mg/dL (7-18)
[2018-07-23] MEDS: BLOOD SUGAR DIAGNOSTIC 1 EACH STRIP IN SCH ×4 (06:13→23:34)
[2018-07-23] MEDS: INSULIN REGULAR, HUMAN 100 UNIT/ML 3 ML VIAL SQ PRN ×2 (06:15→23:35)
--- NOTE | 2018-07-23 07:45 | NUR ---
ICU/RN: Pt received, intubated, tolerating current vent settings, no distress noted. IVF infusing well through R IJ TLC. FC draining jules urine to gravity. Rectal tube with brown liquid drainage. SR on monitor, afebrile. Alarm sounds audible, will cont to monitor pt status.
[2018-07-23 08:23] LABS: BILIRUBIN,DIRECT 0.3 mg/dL (0.0-0.2)
--- NOTE | 2018-07-23 09:00 | NUR ---
ICU/RN: Partial oral care rendered, pt bites on suction catheter. Mouth noted dry and cracked with scabs. At risk for bleeding.
[2018-07-23] MEDS: MEROPENEM 500 MG in IV NS 0.9% 50 ML IV SCH ×2 (09:12→21:12)
--- NOTE | 2018-07-23 12:28 | NUR ---
WOUND CARE CONSULT: PT RECEIVING BLOOD TRANSFUSION AT THIS TIME PER RN. ALL SKIN PROTECTION MEASURES IN PLACE INCLUDING FIRST STEP CIRRUS LOW AIRLOSS MATTRESS. WILL SEE PT PT CONDITION PERMITS. CURRENT DEMARCUS SCORE IS 8. IN AGREEMENT WITH PLAN OF CARE.
--- NOTE | 2018-07-23 13:00 | NUR ---
ICU/RN: Yareli Leiva, STACKER ATTENDANT at bedside; updated on pt status. Informed of GT leak, appears positional when flushed. S/P 1U PRBC transfusion; per STACKER ATTENDANT "no need for plt transfusion." Continue Na acetate drip per STACKER ATTENDANT.
[2018-07-23] MEDS: Z GUARD REMEDY 2 OZ OINT TP SCH (13:16)
--- NOTE | 2018-07-23 15:00 | NUR ---
ICU/RN: Bed bath, wound care rendered. Presents with multiple pressure ulcers at bony prominences. Mepilex applied. Scant bleeding during dressing change noted on multiple back ulcers. Turned and repositioned for comfort. Bilat heels offloaded. Will cont to monitor pt.
--- NOTE | 2018-07-23 17:40 | NUR ---
RT END OF THE SHIFT REPORT; PT. 68 Y OLD MALE TRACH'D PORTEX # 7 ON VENT WITH NOTED SETTINGS. REMAIN STABLE. PT. TOLERATING VENT SETTINGS. SX'D FOR MOD AMT OF YELLOW SECRETIONS. EQUAL CHEST RISE NOTED. CUFF CUSTOMER SERVICE SUPERVISOR. VENT ALARMS SET AND AUDIBLE. AMBU BAG AT BEDSIDE. VENT PLUGGED INTO RED OUTLET. HME CHANGED. WILL CONTINUE TO MONITOR. REPORT WILL PASS TO PM SHIFT. Addendum: 07/23/18 at 1743 by SHAWN OLIVO RT Amended: Links added.
[2018-07-23 18:06] LABS: OCCULT BLOOD STOOL POSITIVE (NEGATIVE)
--- NOTE | 2018-07-23 18:20 | NUR ---
ICU/RN: OBS + result, ABG reported to Yareli Leiva NP. Rectal tube drainage noted dark green. Per LOG COOKER, keep pt NPO, DC Sodium Acetate drip. LOG COOKER to enter orders. Noted and carried out.
[2018-07-23] MEDS: IV NS 0.9% 1,000 ML IV PRN (18:49)
--- NOTE | 2018-07-23 20:23 | NUR ---
RECEIVED PT TRACHED PORTEX 7 ON VENT. NO RESP DISTRESS NOTED. SX'D FOR MOD AMT OF THICK YELLOW SECRETIONS. VENT ALARMS SET AND AUDIBLE. AMBU BAG AT BEDSIDE. TRACH SECURE, CUFF MACHINE RECORDS UNITS SUPERVISOR. VENT PLUGGED INTO RED OUTLET. WILL CONTINUE TO MONITOR. Addendum: 07/23/18 at 2024 by ZANDER CUNNINGHAM RT Amended: Links added.
[2018-07-23] MEDS: PANTOPRAZOLE 40 MG VIAL IV SCH (21:12)
--- NOTE | 2018-07-23 23:36 | NUR ---
RESEARCH AGRICULTURAL ENGINEER NOTES BLOOD SUGAR 166. INSULIN HELD DUE TO NPO STATUS. WILL CONTINUE TO MONITOR CLOSELY
[2018-07-24] VITALS (100 sets, daily range): BP systolic 91–121; BP diastolic 51–72
--- NOTE | 2018-07-24 03:46 | NUR ---
QUALITATIVE FIELD PROJECT MANAGER NOTES PATIENT'S TONGUE NOTED TO HAVE LARGE AMOUNT OF DRIED BLOOD. PATIENT DOES NOT FOLLOW COMMANDS AT THIS TIME, AND CLENCHES HIS TEETH WHEN ATTEMPTING TO PERFORM ORAL CARE. LIPS AND OUTER TEETH CLEANED ABLE
[2018-07-24 04:52] LABS: BASOPHILS % (AUTO) 0.2 % (0.0-2.0); EOSINOPHILS % (AUTO) 0.2 % (0.0-6.0); HEMATOCRIT 24 % (39-51); HEMOGLOBIN 7.8 g/dL (13.5-17.5); LYMPHOCYTES # (AUTO) 0.8 /CMM (0.8-4.8); LYMPHOCYTES % (AUTO) 4.3 % (20.0-44.0); MEAN CORPUSCULAR HGB CONC 33 g/dl (31.0-36.0); MEAN CORPUSCULAR VOLUME 104 fL (80-96); MONOCYTES # (AUTO) 0.9 /CMM (0.1-1.30); MONOCYTES % (AUTO) 4.5 % (2.0-12.0); NEUTROPHILS # (AUTO) 17.4 /CMM (1.8-8.9); NEUTROPHILS % (AUTO) 90.8 % (43.0-81.0); RED BLOOD CELL COUNT(AUTO) 2.27 MIL/uL (4.5-6.0); WHITE BLOOD COUNT (AUTO) 19.2 K/uL (4.3-11.0)
[2018-07-24 04:55] LABS: CALCIUM, SERUM 7.3 mg/dL (8.5-10.1); CREATININE 2.1 mg/dL (0.6-1.3); POTASSIUM 2.8 mmol/L (3.5-5.1)
[2018-07-24 04:58] LABS: PLATELET COUNT (AUTO) 9 /CMM (150-450)
[2018-07-24] MEDS: BLOOD SUGAR DIAGNOSTIC 1 EACH STRIP IN SCH ×3 (05:14→17:35)
[2018-07-24] MEDS: INSULIN REGULAR, HUMAN 100 UNIT/ML 3 ML VIAL SQ PRN (05:14)
[2018-07-24] MEDS: IV NS 0.9% 1,000 ML IV PRN ×2 (05:25→15:30)
[2018-07-24 05:32] LABS: NEUTROPHILS % (MANUAL) 70 (42-76)
[2018-07-24 05:33] LABS: BAND % (MANUAL) 25 % (0.0-5.0); LYMPHOCYTES % (MANUAL) 2 % (16-48); MONOCYTES % (MANUAL) 3 % (0-11.0)
--- NOTE | 2018-07-24 06:00 | NUR ---
SHIRRING MACHINE OPERATOR AUTOMATIC NOTES RECEIVED CALL FROM LAB REGARDING CRITICAL LAB VALUES, K 2.7, PLT 9. RESULTS RELAYED TO DR OLEG. MITCHELL WITH NEW ORDERS. WILL CARRY OUT ALL NEW ORDERS
[2018-07-24] MEDS: POTASSIUM CL. PREMIX PERIPHER. 50 ML IV SCH ×3 (06:06→08:43)
--- NOTE | 2018-07-24 07:00 | NUR ---
PLASTIC BATTERY ASSEMBLER CLOSING NOTES PATIENT RESTING IN BED, APPEARS COMFORTABLE, NO FACIAL GRIMACE. ONGOING POTASSIUM REPLACEMENT VIA IV, ENDORSED TO DAY SHIFT NURSE JASWANT TO CONTINUE AND COMPLETE.
--- NOTE | 2018-07-24 07:10 | NUR ---
RN NOTES RECEIVED PT ON BED, DOES NOTE FOLLOW COMMAND , VENT/TRACH DEPENDENT , TOLERATING CURRENT VENT SETTING WELL, DOES NOT FOLLOW COMMAND, ON TELE SR WITH FIRST DEGREE BLOCK AND BBB , HR IN 80'S, GT CLAMPED , FOLY DRANING TO GRAVITY . LEVO AT 6 MCG/MIN AND NS AT 100CC/ HR RUNNING VIA R IJ TLC , SR UP x3, CALL LIGHT WITHIN EASY REACH, BED LOCKED AND IN LOWEST POSITION, CONTINUE TO MONITOR
[2018-07-24] MEDS: MEROPENEM 500 MG in IV NS 0.9% 50 ML IV SCH ×2 (08:19→21:03)
[2018-07-24] MEDS: Z GUARD REMEDY 2 OZ OINT TP PRN (08:20)
[2018-07-24] MEDS: Z GUARD REMEDY 2 OZ OINT TP SCH (08:21)
--- NOTE | 2018-07-24 08:41 | NUR ---
WOUND CARE CONSULT: PT PRESENTS WITH MULTIPLE WOUNDS INCLUDING INTACT DEEP TISSUE INJURIES TO RT EAR AND RT SIDE OF HEAD, RT LATERAL FOOT AND RT HEEL NECROTIC WOUNDS AND ULCERS BETWEEN RT 4TH AND 5TH TOES, BACK ULCERS, BILATERAL BUTTOCK AND SACRAL ULCERS, STAGE 3, ALLPRESENT ON ADMISSION. RECOMMEND DPM AND SURGICAL CONSULTS. PT ON FIRST STEP CIRRUS LOW AIRLOSS MATTRESS. ALL SKIN PROTECTION AND WOUND CARE RECOMMENDATIONS DISCUSSED WITH NURSING STAFF. PT IS EXTREMELY THIN AND BONY. PT NOTED TO HAVE MULTIPLE AREAS OF BRUISING ON LEGS, CONTRACTED LOWER EXTREMITIES AND HYPERGRANULAR TISSUE TO G TUBE SITE. G TUBE CLAMPED AT THIS TIME. DEFER TO DPM FOR LOWER EXTREMITY WOUND TREATMENT PLAN. DEFER TO MD/SURGEON FOR G TUBE SITE. WILL SEE PRN. MD IN AGREEMENT WITH PLAN OF CARE. Addendum: 07/24/18 at 0845 by ASHLEY ALVAREZ WNDNU Amended: Links added.
[2018-07-24 08:44] LABS: ABG BASE EXCESS 4.2 mmol/L; ABG OXYGEN SATURATION 96.2 % (92.0-98.5); ABG PCO2 49.6 mmHg (35.0-45.0); ABG PH 7.394 (7.350-7.450); ABG PO2 88.8 mmHg (75.0-100.0); AaDO2 139.4 mmHg; COHb 0.8 % (0.5-1.5); MetHb 0.8 % (0.0-1.5); O2Hb 94.7 % (94.0-97.0); SITE, ABG Right Radial; VENT MODE, BG AC 14 500 40% 0
[2018-07-24] MEDS ORDERED: HYDROGEL DRESSING 90 GM TUBE TP PRN (09:00)
[2018-07-24] MEDS ORDERED: HYDROGEL DRESSING 90 GM TUBE TP SCH (09:00)
--- NOTE | 2018-07-24 12:00 | NUR ---
RN NOTES DR NICHOLSON NOTIFIED REGARDING PLT =9, NO NEW ORDER RECEIVED , VSS STABLE , PT STILL ON LEVO AT 6MCG/MIN. CONTINUE TO MONITOR .
[2018-07-24] MEDS: NOREPINEPHRINE 16 MG in IV D5W 500 ML IV PRN (13:58)
[2018-07-24] MEDS: THERAHONEY GEL 1.5 OZ TUBE TP SCH (14:01)
--- NOTE | 2018-07-24 18:00 | NUR ---
RN NOTES LEVO AT 4 MCG/MIN AT THIS TIME , VSS STABLE, TRACH SUCTION DONE , NO SIGNIFICANT CHANGES NOTED ON THIS SHIFT, WILL ENDOSE TO DOBBY LOOM CHAIN PEGGER NURSER FOR CONTINUITY OF CARE
--- NOTE | 2018-07-24 18:02 | NUR ---
RT END OF THE SHIFT REPORT; PT. 68 Y OLD MALE REMAIN STABLE TRACH'D PORTEX # 7 ON VENT WITH NOTED SETTINGS, ALARMS ARE SET AND FUNCTIONAL. EQUAL CHEST RISE NOTED, AND SUX'D FOE MOD. AMT YELLOWISH SECRETIONS, B/S BILATERALLY RALES. AND VENT PLUGGED INTO RED OUT LET. PT. STABLE AND HME CHANGED. AMBU BAG REMAIN AT THE BEDSIDE. CONTINUE FOR CARE AND MONITOR REPORT WILL PASS TO PM SHIFT. Addendum: 07/24/18 at 1805 by SHAWN OLIVO RT Amended: Links added.
--- NOTE | 2018-07-24 20:00 | NUR ---
Received patient obtunded.Patient hypothermic temp 92.6.Kept warm with warm blanket and Myron Hugger. With trach to full vent support.Well tolerated SPO2 100%.Secretions suctioned and oral care done.ON Continuous cardiac monitoring shows SR with 1st degree AVB /BBB.Levophed infusing for BP support and will titrate to keep MAP> 65.NPO.GT clamped with IVF infusing.FC to gravity drainage.Patient with multiple wounds.Care plan implemented.Continue monitoring.
--- NOTE | 2018-07-24 20:23 | NUR ---
RECEIVED PT TRACHED PORTEX 7 ON VENT. NO RESP DISTRESS NOTED. SX'D FOR MOD AMT OF THICK YELLOW SECRETIONS. VENT ALARMS SET AND AUDIBLE. AMBU BAG AT BEDSIDE. TRACH SECURE, CUFF SUPERVISOR SPEECH. VENT PLUGGED INTO RED OUTLET. WILL CONTINUE TO MONITOR. Addendum: 07/24/18 at 2022 by ZANDER CUNNINGHAM RT Amended: Links added.
[2018-07-24] MEDS: PANTOPRAZOLE 40 MG VIAL IV SCH (21:03)
--- NOTE | 2018-07-24 23:45 | NUR ---
Per miscellaneous order to change FC and obtain urine specimen for UA and C/S.FC cath Fr # [id number] inserted by RAYSHAWN Teague,Specimen collected and sent to lab.
[2018-07-25] VITALS (104 sets, daily range): BP systolic 85–119; BP diastolic 49–66
[2018-07-25] MEDS: BLOOD SUGAR DIAGNOSTIC 1 EACH STRIP IN SCH ×5 (00:02→23:49)
[2018-07-25] MEDS: IV NS 0.9% 1,000 ML IV PRN (01:33)
[2018-07-25 02:21] LABS: APPEARANCE,URINE CLOUDY (CLEAR); BILIRUBIN,URINE NEGATIVE (NEGATIVE); BLOOD, URINE 3+ Ery/uL (NEGATIVE); COLOR,URINE RED (YELLOW); KETONES,URINE NEGATIVE (NEGATIVE); LEUKOCYTE ESTERASE ,URINE 1+ (NEGATIVE); NITRITE, URINE NEGATIVE (NEGATIVE); PROTEIN,URINE 2+ mg/dl (NEGATIVE); UGLUCOSE NEGATIVE (NEGATIVE); UROBILINOGEN,URINE 0.2 EU/dL (0.2)
[2018-07-25 02:31] LABS: BACTERIA,URINE Few /HPF (None Seen); RBC,URINE TOO NUMEROUS TO COUN /HPF (0-2); SQUAMOUS EPITHELIAL CELL,UR Rare /HPF (None Seen)
--- NOTE | 2018-07-25 04:00 | NUR ---
Patient resting in no distress,Latest Temp 97.4.AM care done.Turned and repositioned.
[2018-07-25 05:15] LABS: CALCIUM, SERUM 7.3 mg/dL (8.5-10.1); CREATININE 2.1 mg/dL (0.6-1.3); POTASSIUM 3.1 mmol/L (3.5-5.1)
[2018-07-25] MEDS: MEROPENEM 500 MG in IV NS 0.9% 50 ML IV SCH ×2 (08:06→21:52)
[2018-07-25] MEDS: Z GUARD REMEDY 2 OZ OINT TP SCH (09:22)
[2018-07-25] MEDS: THERAHONEY GEL 1.5 OZ TUBE TP SCH (09:22)
[2018-07-25] MEDS: Z GUARD REMEDY 2 OZ OINT TP PRN (09:22)
[2018-07-25 10:26] LABS: BASOPHILS % (AUTO) 0.1 % (0.0-2.0); EOSINOPHILS % (AUTO) 1.5 % (0.0-6.0); LYMPHOCYTES # (AUTO) 0.8 /CMM (0.8-4.8); LYMPHOCYTES % (AUTO) 11.1 % (20.0-44.0); MEAN CORPUSCULAR HGB CONC 33 g/dl (31.0-36.0); MEAN CORPUSCULAR VOLUME 104 fL (80-96); MONOCYTES # (AUTO) 0.5 /CMM (0.1-1.30); MONOCYTES % (AUTO) 7.3 % (2.0-12.0); NEUTROPHILS # (AUTO) 5.9 /CMM (1.8-8.9); WHITE BLOOD COUNT (AUTO) 7.4 K/uL (4.3-11.0)
[2018-07-25 11:13] LABS: RED BLOOD CELL COUNT(AUTO) 1.96 MIL/uL (4.5-6.0)
[2018-07-25 11:14] LABS: HEMATOCRIT 20 % (39-51); HEMOGLOBIN 6.8 g/dL (13.5-17.5); PLATELET COUNT (AUTO) 6 /CMM (150-450)
[2018-07-25 11:18] LABS: BAND % (MANUAL) 16 % (0.0-5.0); EOSINOPHILS % (MANUAL) 2 % (0-4); LYMPHOCYTES % (MANUAL) 7 % (16-48); METAMYELOCYTES % 2 % (0-0); MONOCYTES % (MANUAL) 7 % (0-11.0); NEUTROPHILS % (MANUAL) 66 (42-76)
[2018-07-25] MEDS: POTASSIUM CL. PREMIX PERIPHER. 50 ML IV SCH ×3 (11:53→16:59)
--- NOTE | 2018-07-25 20:00 | NUR ---
RN INITIAL NOTES RECEIVED PT ON BED, DOES NOTE FOLLOW COMMAND , VENT/TRACH DEPENDENT , TOLERATING CURRENT VENT SETTING WELL, ON TELE SR WITH FIRST DEGREE BLOCK AND BBB , HR 62, GT CLAMPED , STEELE DRAINING TO GRAVITY. SR UP x3, CALL LIGHT WITHIN EASY REACH, BED LOCKED AND IN LOWEST POSITION, CONTINUE TO MONITOR.
[2018-07-25] MEDS: PANTOPRAZOLE 40 MG VIAL IV SCH (21:52)
[2018-07-26] VITALS (77 sets, daily range): BP systolic 91–118; BP diastolic 49–68
[2018-07-26] MEDS: IV NS 0.9% 1,000 ML IV PRN ×2 (01:13→12:02)
[2018-07-26 04:43] LABS: BASOPHILS % (AUTO) 0.2 % (0.0-2.0); HEMATOCRIT 22 % (39-51); HEMOGLOBIN 7.5 g/dL (13.5-17.5); LYMPHOCYTES # (AUTO) 0.8 /CMM (0.8-4.8); LYMPHOCYTES % (AUTO) 11.4 % (20.0-44.0); MEAN CORPUSCULAR HGB CONC 34 g/dl (31.0-36.0); MEAN CORPUSCULAR VOLUME 100 fL (80-96); MONOCYTES # (AUTO) 0.7 /CMM (0.1-1.30); MONOCYTES % (AUTO) 9.6 % (2.0-12.0); NEUTROPHILS # (AUTO) 5.3 /CMM (1.8-8.9); NEUTROPHILS % (AUTO) 75.8 % (43.0-81.0); RED BLOOD CELL COUNT(AUTO) 2.19 MIL/uL (4.5-6.0)
--- NOTE | 2018-07-26 04:52 | NUR ---
EDGING MACHINE OPERATOR: RELAYED PLATELET COUNT=23 TO PRIMARY NURSE ELBERT.
[2018-07-26 04:55] LABS: PLATELET COUNT (AUTO) 23 /CMM (150-450)
[2018-07-26 05:21] LABS: BAND % (MANUAL) 2 % (0.0-5.0); EOSINOPHILS % (MANUAL) 5 % (0-4); LYMPHOCYTES % (MANUAL) 11 % (16-48); MONOCYTES % (MANUAL) 9 % (0-11.0); NEUTROPHILS % (MANUAL) 73 (42-76)
[2018-07-26 05:23] LABS: CALCIUM, SERUM 7.4 mg/dL (8.5-10.1); CREATININE 2.1 mg/dL (0.6-1.3); MAGNESIUM 1.6 mg/dL (1.8-2.4); PHOSPHORUS 4.1 mg/dL (2.5-4.9); POTASSIUM 3.4 mmol/L (3.5-5.1)
[2018-07-26] MEDS: BLOOD SUGAR DIAGNOSTIC 1 EACH STRIP IN SCH ×3 (05:47→18:32)
--- NOTE | 2018-07-26 07:20 | NUR ---
RN OPENING NOTES PATIENT NON VERBAL ONLY OPENS EYES DOES NOT TRACK, RESPONSIVE TO PAINFUL STIMULI WITH POSITIVE GAG AND COUGH REFLEX. PT WITH TRACH SITE WITH MODERATE PINK TINGED SECRETIONS WITH NEED FOR FREQUENT TRACH CARE, SUCTIONED PRN TOLERATING VENT SETTINGS. STEELE CATHETER AND RECTAL TUBE PATENT AND DRAINING. MULTIPLE WOUNDS TREATMENT ORDERED,KEPT CLEAN DRY AND COMFORTABLE. IV SITES PATENT AND INTACT NO REDNESS OR INFILTRATION NOTED. WILL CONTINUE TO MONITOR
--- NOTE | 2018-07-26 07:32 | NUR ---
RN CLOSING NOTES; NO CHANGED IN PTS CONDITION OVERNIGHT. PLATELETS TRANSFUSED ORDERED. WILL ENDORSE TO AM RN FOR LEENA
--- NOTE | 2018-07-26 08:13 | NUR ---
RN NOTES PT REQUESTING BIPAP DIDNT HAVE IT DURING NIGHT RT MADE AWARE, WILL CONTINUE TO MONITOR Addendum: 07/26/18 at 1936 by CASSANDRA GARCIAS RN RN NOTES DOCUMENTATION ON INCORRECT PATIENT
[2018-07-26] MEDS: MEROPENEM 500 MG in IV NS 0.9% 50 ML IV SCH ×2 (08:43→20:53)
[2018-07-26] MEDS: Z GUARD REMEDY 2 OZ OINT TP PRN (08:47)
[2018-07-26] MEDS: Z GUARD REMEDY 2 OZ OINT TP SCH (08:48)
[2018-07-26] MEDS: THERAHONEY GEL 1.5 OZ TUBE TP SCH (08:48)
[2018-07-26] MEDS ORDERED: Magnesium 1GM/D5W 100ML PREMIX 100 ML IV SCH (10:30)
[2018-07-26 10:43] LABS: D-DIMER 2.27 mg/L(FEU (0.17-0.50)
[2018-07-26] MEDS ORDERED: POTASSIUM CHLORIDE 20 MEQ TAB.PRT.SR PO SCH (11:00)
[2018-07-26] MEDS: POTASSIUM CL. PREMIX PERIPHER. 50 ML IV SCH ×2 (12:36→13:42)
[2018-07-26] MEDS: IV D5W 1,000 ML IV PRN (12:37)
[2018-07-26] MEDS: INSULIN REGULAR, HUMAN 100 UNIT/ML 3 ML VIAL SQ PRN (18:32)
[2018-07-26] MEDS ORDERED: DEXTROSE 50%-WATER 50 ML DISP.SYRIN IV PRN (19:00)
--- NOTE | 2018-07-26 19:36 | NUR ---
RN CLOSING NOTES PATIENT NON VERBAL ONLY OPENS EYES DOES NOT TRACK, RESPONSIVE TO PAINFUL STIMULI WITH POSITIVE GAG AND COUGH REFLEX. PT WITH TRACH SITE WITH MODERATE PINK TINGED SECRETIONS WITH NEED FOR FREQUENT TRACH CARE, SUCTIONED PRN. STEELE CATHETER AND RECTAL TUBE PATENT AND DRAINING. MULTIPLE WOUNDS TREATMENT ORDERED,KEPT CLEAN DRY AND COMFORTABLE. IV SITES PATENT AND INTACT NO REDNESS OR INFILTRATION NOTED. ENDORSED TO NEXT SHIFT FOR CONTINUITY OF CARE
--- NOTE | 2018-07-26 20:00 | NUR ---
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 RECEIVED THE PT REST ON THE BED. TRACH TO VENT CONNECTED.PT IS OBTUNDED. PORTEX#7, AC 14,TV 500,FIO2 40%. SAT 98%. LINE CLEARANCE FOREMAN SHOWING NSR. IV RT IJ TRIPLE LUMEN IVF D5W 100ML/H. FC PATENT. GT CLAMPED. MULTIPLE WOUND . AFEBRILE. WILL CONTINUE TO MONITOR VITALS.
[2018-07-26] MEDS: PANTOPRAZOLE 40 MG VIAL IV SCH (20:53)
[2018-07-27] VITALS (58 sets, daily range): BP systolic 105–122; BP diastolic 57–70
[2018-07-27] MEDS: BLOOD SUGAR DIAGNOSTIC 1 EACH STRIP IN SCH ×5 (00:37→23:18)
--- NOTE | 2018-07-27 04:32 | NUR ---
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 ORAL CARE, BED BATH GIVEN. LINEN CHANGED. REMAINING SAME VENT SETTING TOLEARTED WELL. SAT 99%. NO ACUTE DISTRESS NOTED. STONE SETTER METAL OPTICAL FRAMES SHOWING NSR. IGV RT IJ TRIPLE LUMEN IVF D5W 100ML/H. FC PATENT URINE DRAINING, FLEXA SEAL INTACT. GT CLAMPED. AFEBRILE, HOB ELEVATED. TURN AND REPOSITION Q2H. WILL CONTINUE TO MONITOR VITALS.
[2018-07-27 04:49] LABS: BASOPHILS % (AUTO) 0.3 % (0.0-2.0); EOSINOPHILS % (AUTO) 6.8 % (0.0-6.0); HEMATOCRIT 24 % (39-51); LYMPHOCYTES % (AUTO) 16.3 % (20.0-44.0); MEAN CORPUSCULAR HGB CONC 34 g/dl (31.0-36.0); MEAN CORPUSCULAR VOLUME 100 fL (80-96); MONOCYTES # (AUTO) 0.6 /CMM (0.1-1.30); MONOCYTES % (AUTO) 10.4 % (2.0-12.0); NEUTROPHILS # (AUTO) 3.9 /CMM (1.8-8.9); NEUTROPHILS % (AUTO) 66.2 % (43.0-81.0); RED BLOOD CELL COUNT(AUTO) 2.35 MIL/uL (4.5-6.0)
[2018-07-27 04:56] LABS: PLATELET COUNT (AUTO) 18 /CMM (150-450)
[2018-07-27 05:04] LABS: CALCIUM, SERUM 7.4 mg/dL (8.5-10.1); CREATININE 2.2 mg/dL (0.6-1.3); MAGNESIUM 1.9 mg/dL (1.8-2.4); POTASSIUM 3.7 mmol/L (3.5-5.1)
[2018-07-27 05:31] LABS: EOSINOPHILS % (MANUAL) 4 % (0-4); LYMPHOCYTES % (MANUAL) 19 % (16-48); MONOCYTES % (MANUAL) 6 % (0-11.0)
[2018-07-27 05:32] LABS: NEUTROPHILS % (MANUAL) 71 (42-76)
[2018-07-27] MEDS: Z GUARD REMEDY 2 OZ OINT TP PRN (08:14)
[2018-07-27] MEDS: THERAHONEY GEL 1.5 OZ TUBE TP SCH (08:14)
[2018-07-27] MEDS: Z GUARD REMEDY 2 OZ OINT TP SCH (09:00)
[2018-07-27] MEDS: MEROPENEM 500 MG in IV NS 0.9% 50 ML IV SCH (10:38)
[2018-07-27] MEDS: INSULIN REGULAR, HUMAN 100 UNIT/ML 3 ML VIAL SQ PRN ×2 (17:16→23:22)
[2018-07-27] MEDS: MEROPENEM 500 MG in IV NS 0.9% 100 ML IV SCH (17:18)
--- NOTE | 2018-07-27 17:52 | NUR ---
pt. transferred from 262 to rm#[id number] with same [facility] vent. [facility] vent plugged into red outlet with alarms on and functioning. betty @ [employer]. Addendum: 07/27/18 at 1753 by ANTONIO GILL RT Amended: Links added.
--- NOTE | 2018-07-27 18:00 | NUR ---
ROD RN NOTES PT RECEIVED IN ROD ROOM 102. PT PLACED ON TELE-SR. VS TAKEN AND WNL. PT IS ON VENT SETTINGS MD ORDERED. O2 SAT WNL. IV FLUID RUNNING VIA RIJ. PATENT/FLUSHED. BED IN LOCKED/LOWEST POSITION. WILL CONT TO MONITOR FOR CHANGES.
--- NOTE | 2018-07-27 19:30 | NUR ---
TD RN: RECEIVED PT ON MECH VENT WT SETTINGS ORDERED. OBTUNDED, NO ACUTE DISTRESS, NO EVIDENCE OF DISCOMFORT. SR ON TELE MONITOR. RIJ TLC INFUSING ATB IV THERAPY AND ON D5W AT 100ML/HR WT NO S/S OF COMPLICATIONS. GT CLAMPED. F/C PATENT AND INTACT DRAINING TEA COLORED URINE TO GRAVITY. HOB AT 35 DEGREES. SAFETY PRECAUTION NOTED. WILL CONTINUE TO MONITOR.
--- NOTE | 2018-07-27 20:28 | NUR ---
PT RCVD VERA'D ON MECHANICAL VENT WITH CHARTED SETTINGS. SX DONE. PT TRACH IS PATENT AND SECURE. VENT PLUGGED INTO RED OUTLET. ALARMS ARE SET AND AUDIBLE. AMBU BAG AT BEDSIDE. WILL CONTINUE TO MONITOR. Addendum: 07/27/18 at 2028 by MART SAM RT Amended: Links added.
[2018-07-27] MEDS: PANTOPRAZOLE 40 MG VIAL IV SCH (21:31)
[2018-07-27] MEDS: IV D5W 1,000 ML IV PRN (22:23)
[2018-07-28] VITALS: BP 98/44
[2018-07-28 04:00] VITALS: BP 104/64
[2018-07-28] MEDS: MEROPENEM 500 MG in IV NS 0.9% 100 ML IV SCH ×2 (05:49→17:06)
[2018-07-28] MEDS: BLOOD SUGAR DIAGNOSTIC 1 EACH STRIP IN SCH ×4 (05:55→23:47)
[2018-07-28] MEDS: INSULIN REGULAR, HUMAN 100 UNIT/ML 3 ML VIAL SQ PRN (05:59)
--- NOTE | 2018-07-28 06:13 | NUR ---
TD RN: NO SIGNIFICANT LEENA DURING THE SHIFT. NO ACUTE DISTRESS, NO EVIDENCE OF DISCOMFORT. VS WITHIN PT'S BASELINE. ALL NEEDS MET. WILL CONTINUE TO MONITOR AND ENDORSE TO DAY SHIFT FOR CONTINUITY OF CARE.
[2018-07-28 06:54] LABS: CALCIUM, SERUM 7.5 mg/dL (8.5-10.1); CREATININE 2.1 mg/dL (0.6-1.3); MAGNESIUM 1.9 mg/dL (1.8-2.4); PHOSPHORUS 4.7 mg/dL (2.5-4.9); POTASSIUM 3.4 mmol/L (3.5-5.1)
[2018-07-28 07:30] LABS: BASOPHILS % (AUTO) 0.3 % (0.0-2.0); EOSINOPHILS % (AUTO) 11.2 % (0.0-6.0); HEMATOCRIT 27 % (39-51); HEMOGLOBIN 9.1 g/dL (13.5-17.5); LYMPHOCYTES # (AUTO) 0.8 /CMM (0.8-4.8); LYMPHOCYTES % (AUTO) 10.2 % (20.0-44.0); MEAN CORPUSCULAR HGB CONC 34 g/dl (31.0-36.0); MEAN CORPUSCULAR VOLUME 101 fL (80-96); MONOCYTES # (AUTO) 0.5 /CMM (0.1-1.30); MONOCYTES % (AUTO) 7.2 % (2.0-12.0); NEUTROPHILS # (AUTO) 5.3 /CMM (1.8-8.9); NEUTROPHILS % (AUTO) 71.1 % (43.0-81.0); RED BLOOD CELL COUNT(AUTO) 2.66 MIL/uL (4.5-6.0); WHITE BLOOD COUNT (AUTO) 7.5 K/uL (4.3-11.0)
[2018-07-28 07:35] LABS: PLATELET COUNT (AUTO) 22 /CMM (150-450)
[2018-07-28 08:00] VITALS: BP 108/68
[2018-07-28] MEDS: Z GUARD REMEDY 2 OZ OINT TP SCH (08:15)
[2018-07-28] MEDS: THERAHONEY GEL 1.5 OZ TUBE TP SCH (08:15)
[2018-07-28 09:43] LABS: EOSINOPHILS % (MANUAL) 4 % (0-4); LYMPHOCYTES % (MANUAL) 6 % (16-48); MONOCYTES % (MANUAL) 2 % (0-11.0); NEUTROPHILS % (MANUAL) 88 (42-76)
--- NOTE | 2018-07-28 10:45 | NUR ---
ROD RN NOTES SELINA OLIVA, AWNING CRAFTSPERSON, DR HOLLIS AND REBECA GOMEZ AWNING CRAFTSPERSON ROUNDING WITH PT. REBECA WILL TALK TO NATALIE REGARDING TUBE FEEDING.
[2018-07-28] MEDS ORDERED: POTASSIUM CL. PREMIX PERIPHER. 50 ML IV SCH (11:00)
[2018-07-28 12:00] VITALS: BP 96/65
[2018-07-28] MEDS: IV D5W 1,000 ML IV PRN (14:47)
[2018-07-28 16:00] VITALS: BP 97/69
--- NOTE | 2018-07-28 16:30 | NUR ---
ROD RN NOTES NATALIE CONDE WILL ASSESS PT FOR TUBE FEEDINGS. AWAITING ORDERS
--- NOTE | 2018-07-28 18:22 | NUR ---
RT NOTE PT REMAINS MECHANICALLY VENTILATED VIA PORTEX 7 CUFFED TRACHEOSTOMY TUBE. CUFF INFLATED. TRACH TUBE MIDLINE AND SECURE. VENTILATOR SETTINGS PRESCRIBED. ALARMS SET PER PROTOCOL AND AUDIBLE. VENT PLUGGED IN TO RED OUTLET. AMBU BAG AT BED SIDE. NO DISTRESS NOTED. Addendum: 07/28/18 at 1824 by PILO SUNG RT Amended: Links added.
--- NOTE | 2018-07-28 19:00 | NUR ---
ROD RN NOTES PT ENDORSED TO PM NURSE FOR LEENA. PT ON VENT. NO S/SX OF RESP DISTRESS. AMBU BAG AT BS. IV FLUIDS RUNNING. BED IN LOCKED /LOWEST POSITION. CALL LIGHT IN REACH. ALL NEEDS ATTENDED.
--- NOTE | 2018-07-28 19:14 | NUR ---
PT RCVD VERA'D ON MECHANICAL VENT WITH CHARTED SETTINGS. SX DONE. PT TRACH IS PATENT AND SECURE. VENT PLUGGED INTO RED OUTLET. ALARMS ARE SET AND AUDIBLE. AMBU BAG AT BEDSIDE. WILL CONTINUE TO MONITOR. Addendum: 07/28/18 at 1914 by MART SMA RT Amended: Links added.
--- NOTE | 2018-07-28 19:45 | NUR ---
ROD RN NOTE RECEIVED [facility] WITH SETTINGS ORDERED, TOLERATING VENT. OBTUNDED, ON VERBAL NO ACUTE DISTRESS, NO EVIDENCE OF DISCOMFORT/ SOB/. SR ON TELE MONITOR IN THE 80'S . RIJ TLC INFUSING IV THERAPY D5W AT 100ML/HR WT NO S/S OF COMPLICATIONS. GT CLAMPED. F/C PATENT AND INTACT DRAINING TEA COLORED URINE TO GRAVITY WITH FLEXI SEAL FOR GI DRAINING TO GRAVITY. HOB AT 35 DEGREES. SAFETY PRECAUTION NOTED. WILL CONTINUE TO MONITOR.PATIENT TURNED AND REPOSITIONED FOR COMFORT.
[2018-07-28 20:00] VITALS: BP 122/70
[2018-07-28] MEDS: PANTOPRAZOLE 40 MG VIAL IV SCH (20:29)
[2018-07-29] VITALS: BP 112/67
--- NOTE | 2018-07-29 03:55 | NUR ---
ROD RN NOTE PATIENT GIVEN BED BATH, LINENS CHANGED, WOUND CARE RENDERED, PT TURNED AND REPOSITIONED.
[2018-07-29 04:00] VITALS: BP 112/144
[2018-07-29] MEDS: MEROPENEM 500 MG in IV NS 0.9% 100 ML IV SCH ×2 (06:00→18:13)
[2018-07-29] MEDS: BLOOD SUGAR DIAGNOSTIC 1 EACH STRIP IN SCH ×3 (06:00→17:46)
[2018-07-29] MEDS: IV D5W 1,000 ML IV PRN (06:13)
--- NOTE | 2018-07-29 06:21 | NUR ---
ROD RN NOTE PATIENT BS CHECKED AT 135, HELD 2 UNITS OF INSULIN PER SLIDING SCALE D/T PT BEING NPO. PATIENT HAS NO TUBE FEEDING SCHEDULED AND HAS NOT EATEN IN THE LAST 12 HOURS.
--- NOTE | 2018-07-29 07:00 | NUR ---
RN ROD OPENING NOTES RECEIVED PT IN BED A/O X0 OBTUNDED ON MECH VENT WITH SETTINGS ORDERED, TOLERATING VENT NO SIGNS OR SYMPTOMS OF DISTRESS OR ACUTE PAIN SR ON TELE MONITOR IN THE 80'S . RIJ TLC INFUSING IV THERAPY D5W AT 100ML/HR WT NO S/S OF COMPLICATIONS. GT CLAMPED. F/C PATENT AND INTACT DRAINING TEA COLORED URINE TO GRAVITY WITH FLEXI SEAL FOR GI DRAINING TO GRAVITY. HOB AT 30 DEGREES. SAFETY PRECAUTIONS IN PLACE BED IN LOW POSITION WILL CONTINUE TO MONITOR.
--- NOTE | 2018-07-29 07:29 | NUR ---
ROD RN NOTE NO SIGNIFICANT/ ACUTE CHANGES DURING THE SHIFT. NO ACUTE DISTRESS, NO EVIDENCE OF DISCOMFORT. VS WITHIN PT'S BASELINE. ALL NEEDS MET. WILL CONTINUE TO MONITOR AND ENDORSE TO DAY SHIFT FOR CONTINUITY OF CARE.
[2018-07-29 07:33] LABS: BASOPHILS % (AUTO) 0.2 % (0.0-2.0); EOSINOPHILS % (AUTO) 9.4 % (0.0-6.0); HEMATOCRIT 27 % (39-51); HEMOGLOBIN 8.9 g/dL (13.5-17.5); LYMPHOCYTES # (AUTO) 0.8 /CMM (0.8-4.8); MEAN CORPUSCULAR HGB CONC 33 g/dl (31.0-36.0); MEAN CORPUSCULAR VOLUME 101 fL (80-96); MONOCYTES # (AUTO) 0.7 /CMM (0.1-1.30); MONOCYTES % (AUTO) 8.4 % (2.0-12.0); NEUTROPHILS # (AUTO) 6.2 /CMM (1.8-8.9); RED BLOOD CELL COUNT(AUTO) 2.66 MIL/uL (4.5-6.0); WHITE BLOOD COUNT (AUTO) 8.5 K/uL (4.3-11.0)
[2018-07-29 07:51] LABS: CALCIUM, SERUM 7.2 mg/dL (8.5-10.1); CREATININE 2.1 mg/dL (0.6-1.3); MAGNESIUM 1.7 mg/dL (1.8-2.4); PHOSPHORUS 4.7 mg/dL (2.5-4.9); POTASSIUM 3.6 mmol/L (3.5-5.1)
[2018-07-29 08:00] VITALS: BP 126/75
[2018-07-29 08:14] LABS: PLATELET COUNT (AUTO) 23 /CMM (150-450)
--- NOTE | 2018-07-29 08:16 | NUR ---
RT PATIENT REC'D TRACHED ON [facility] VENT WITH ORDERED SETTINGS JAYLEN WELL. VENT ALARMS CHECKED + AUDIBLE. VENT PLUGGED INTO RED OUTLET. PATIENT NON VERBAL, NON RESPONSIVE TO COMMANDS, NO SO NOTED. AIRWAY SUCTIONED AND PATENT. SMALL/MOD AMT OF PALE SEMITHICK SECRETIONS. B/S DIM. AMBU BAG AT [facility]. Addendum: 07/29/18 at 2009 by GEGE TATE RT Amended: Links added.
[2018-07-29 08:29] LABS: BAND % (MANUAL) 6 % (0.0-5.0); EOSINOPHILS % (MANUAL) 10 % (0-4); LYMPHOCYTES % (MANUAL) 9 % (16-48); MONOCYTES % (MANUAL) 8 % (0-11.0); NEUTROPHILS % (MANUAL) 67 (42-76)
[2018-07-29] MEDS: Z GUARD REMEDY 2 OZ OINT TP SCH (09:09)
[2018-07-29] MEDS: THERAHONEY GEL 1.5 OZ TUBE TP SCH (09:09)
[2018-07-29] MEDS: Magnesium 1GM/D5W 100ML PREMIX 100 ML IV SCH ×2 (10:47→11:54)
[2018-07-29 12:00] VITALS: BP 117/70
[2018-07-29] MEDS ORDERED: Magnesium 1GM/D5W 100ML PREMIX 100 ML IV SCH (14:00)
[2018-07-29 16:00] VITALS: BP 115/67
[2018-07-29] MEDS: GLUCERNA 1.2 1,000 ML BOTTLE GT PRN (18:13)
--- NOTE | 2018-07-29 19:22 | NUR ---
RN ROD OPENING NOTES BEDSIDE REPORT GIVEN TO RADHA PT IN BED A/O X0 OBTUNDED ON MECH VENT WITH SETTINGS ORDERED, TOLERATING VENT NO SIGNS OR SYMPTOMS OF DISTRESS OR ACUTE PAIN SR ON TELE MONITOR IN THE 80'S . RIJ TLC INFUSING IV THERAPY D5W AT 100ML/HR WT NO S/S OF COMPLICATIONS. GT RESUMED STARTING @ 20ML/HR AND INCREASING 10ML Q8-10 WITH GOAL OF 55ML IF TOLERATING F/C PATENT AND INTACT DRAINING TEA COLORED URINE TO GRAVITY WITH FLEXI SEAL LIQUID BLACK GREEN STOOL. MEDICATION ADMINISTERED WITH NO ADVERSE RXN HOB AT 30 DEGREES. SAFETY PRECAUTIONS IN PLACE BED IN LOW POSITION WILL ENDORSE LEENA
[2018-07-29 20:00] VITALS: BP 146/73
--- NOTE | 2018-07-29 20:00 | NUR ---
RN INITIAL NOTES RECEIVED PT IN BED A/O X0 OBTUNDED ON MECH VENT WITH SETTINGS ORDERED, TOLERATING VENT NO SIGNS OR SYMPTOMS OF DISTRESS OR ACUTE PAIN SR ON TELE MONITOR IN THE 80'S . RIJ TLC INFUSING IV THERAPY D5W AT 100ML/HR WT NO S/S OF COMPLICATIONS. TUBE FEEDING ORDERED. F/C PATENT AND INTACT DRAINING TEA COLORED URINE TO GRAVITY WITH FLEXI SEAL FOR GI DRAINING TO GRAVITY. HOB AT 30 DEGREES. SAFETY PRECAUTIONS IN PLACE BED IN LOW POSITION WILL CONTINUE TO MONITOR.
[2018-07-29] MEDS: PANTOPRAZOLE 40 MG VIAL IV SCH (21:38)
[2018-07-30] VITALS: BP 137/69
[2018-07-30] MEDS: IV D5W 1,000 ML IV PRN ×2 (00:51→14:02)
[2018-07-30] MEDS: BLOOD SUGAR DIAGNOSTIC 1 EACH STRIP IN SCH ×4 (00:52→17:58)
[2018-07-30 04:00] VITALS: BP 151/73
[2018-07-30] MEDS: MEROPENEM 500 MG in IV NS 0.9% 100 ML IV SCH ×2 (05:36→17:04)
[2018-07-30] MEDS: INSULIN REGULAR, HUMAN 100 UNIT/ML 3 ML VIAL SQ PRN ×2 (05:41→11:51)
--- NOTE | 2018-07-30 06:00 | NUR ---
RN CLOSING NOTE NO SIGNIFICANT/ ACUTE CHANGES DURING THE SHIFT. NO ACUTE DISTRESS, NO EVIDENCE OF DISCOMFORT. VS WITHIN PT'S BASELINE. ALL NEEDS MET. WILL CONTINUE TO MONITOR AND ENDORSE TO DAY SHIFT FOR CONTINUITY OF CARE.
[2018-07-30 06:02] LABS: BASOPHILS % (AUTO) 0.1 % (0.0-2.0); EOSINOPHILS % (AUTO) 9.6 % (0.0-6.0); HEMATOCRIT 27 % (39-51); LYMPHOCYTES # (AUTO) 0.7 /CMM (0.8-4.8); LYMPHOCYTES % (AUTO) 8.2 % (20.0-44.0); MEAN CORPUSCULAR HGB CONC 34 g/dl (31.0-36.0); MEAN CORPUSCULAR VOLUME 102 fL (80-96); MONOCYTES # (AUTO) 0.6 /CMM (0.1-1.30); MONOCYTES % (AUTO) 7.2 % (2.0-12.0); NEUTROPHILS # (AUTO) 6.7 /CMM (1.8-8.9); NEUTROPHILS % (AUTO) 74.9 % (43.0-81.0); RED BLOOD CELL COUNT(AUTO) 2.62 MIL/uL (4.5-6.0)
[2018-07-30 06:17] LABS: CALCIUM, SERUM 7.1 mg/dL (8.5-10.1); PHOSPHORUS 4.5 mg/dL (2.5-4.9); PLATELET COUNT (AUTO) 36 /CMM (150-450)
--- NOTE | 2018-07-30 07:00 | NUR ---
RN NOTES RECEIVED PT ON BED, OBTUNDED , VENT/ TRACH DEPENDENT, NON VERBAL , TRACH SUCTION DONE, ON TELE SR HR IN 80'S, STEELE DRAINING TO GRAVITY , RECTAL TUBE WITH DARK GREENISH LOOSE STOOL DRINING TO GRAVITY, GLUCERNA AT 20CC/ HR RUNNING VIA GT , R IJ TLC IV SITE CLEAN, DRY AND INTACT, WITH D5W AT 100CC/HR RUNNING , SR UP x3, CALL LIGHT WITHIN EASY REACH, BED LOCKED AND IN LOWEST POSITION, CONTINUE TO MONITOR .
[2018-07-30 08:00] VITALS: BP 98/57
[2018-07-30 08:12] LABS: BAND % (MANUAL) 5 % (0.0-5.0); EOSINOPHILS % (MANUAL) 13 % (0-4); LYMPHOCYTES % (MANUAL) 6 % (16-48); MONOCYTES % (MANUAL) 7 % (0-11.0); NEUTROPHILS % (MANUAL) 69 (42-76)
[2018-07-30] MEDS: Z GUARD REMEDY 2 OZ OINT TP SCH (08:50)
[2018-07-30] MEDS: THERAHONEY GEL 1.5 OZ TUBE TP SCH (08:50)
[2018-07-30 12:00] VITALS: BP 111/65
[2018-07-30 16:00] VITALS: BP 118/69
--- NOTE | 2018-07-30 18:22 | NUR ---
RN NOTES PT REMANS THE SAME , NO SIGNIFICANT CHANGES NOTED ON THIS SHIFT , WILL ENDOSE TO SOLUTIONS CONSULTANT NURSE FOR CONTINUITY OF CARE.
[2018-07-30 20:00] VITALS: BP 111/58
[2018-07-30] MEDS: PANTOPRAZOLE 40 MG VIAL IV SCH (22:01)
[2018-07-31] VITALS: BP_SYST 107; BP_SYST 125; BP_DIAS 53; BP_DIAS 59
[2018-07-31] MEDS: BLOOD SUGAR DIAGNOSTIC 1 EACH STRIP IN SCH ×5 (00:45→23:09)
[2018-07-31] MEDS: IV D5W 1,000 ML IV PRN (00:45)
[2018-07-31 04:00] VITALS: BP 110/61
[2018-07-31] MEDS: MEROPENEM 500 MG in IV NS 0.9% 100 ML IV SCH ×2 (05:42→17:05)
[2018-07-31] MEDS: INSULIN REGULAR, HUMAN 100 UNIT/ML 3 ML VIAL SQ PRN ×2 (05:57→23:15)
[2018-07-31 06:41] LABS: CALCIUM, SERUM 7.1 mg/dL (8.5-10.1); CREATININE 1.8 mg/dL (0.6-1.3); MAGNESIUM 1.9 mg/dL (1.8-2.4); PHOSPHORUS 4.1 mg/dL (2.5-4.9); POTASSIUM 3.6 mmol/L (3.5-5.1); TOTAL PROTEIN, SERUM 5.7 g/dL (6.4-8.2)
[2018-07-31 06:42] LABS: ALBUMIN 1.2 g/dL (3.4-5.0)
[2018-07-31 08:00] VITALS: BP 100/52
--- NOTE | 2018-07-31 08:00 | NUR ---
ROD RN NOTE RECEIVED PT IN THE BED WITH TRACH WITH VENT SETTING ORDERED. AMBU BAG AT BEDSIDE AT ALL TIMES. PT ON TELE MONITOR SR HR 87. PT ON G TUBE FEEDING AT 45CC/HR. NO RESIDUAL NOTED. KEEP HEAD ELEVATED AT ALL TIME. R IJ TLC INTACT. NO S/SX OF INFECTION NOTED ON IJ. ON IV FLUIDS ORDERED. BED ON LOWEST POSITION FOR SKIN MANAGEMENT. FLEXISEAL RECTAL TUBE WITH DARK BROWN LIQUID STOOL NOTED. SPOKE WITH DR GARCIA PC TECHNICIAN. NOTIFIED THAT [facility] PT.'S IV FLUID AND SODIUM 138. EDEMA ON UPPER AND LOWER EXTREMITIES. STATED HE WILL D/C FLUIDS. PT HAS A F/C TO GRAVITY WITH WONG OR PINKISH URINE COLOR. WILL CONTINUE TO MONITOR CLOSELY.
[2018-07-31] MEDS: THERAHONEY GEL 1.5 OZ TUBE TP SCH (09:30)
[2018-07-31] MEDS: Z GUARD REMEDY 2 OZ OINT TP PRN (09:30)
[2018-07-31] MEDS: Z GUARD REMEDY 2 OZ OINT TP SCH (09:31)
--- NOTE | 2018-07-31 10:30 | NUR ---
HAT MAKER NOTE PT CONTINUE ON G TUBE FEEDING. INCREASED TO 55ML/HR NOTED. NO RESIDUAL NOTED.
[2018-07-31 12:00] VITALS: BP 102/50
--- NOTE | 2018-07-31 13:12 | NUR ---
BREASTFEEDING PEER COUNSELOR NOTE ROUNDS MADE. NOT DISTRESSED AT THIS TIME.
--- NOTE | 2018-07-31 15:48 | NUR ---
CHILI POWDER MIXER NOTE NOTICED PT NECK SWOLLEN. NOTIFIED RAJESH CULLEN RN SUPERVISOR PILE DRIVING. OK'D TO DO XRAY OF THE NECK.
[2018-07-31 16:00] VITALS: BP 130/54
[2018-07-31] MEDS: GLUCERNA 1.2 1,000 ML BOTTLE GT PRN (17:03)
--- NOTE | 2018-07-31 17:24 | NUR ---
TELE RNNOTE SEEN BY GEO LE STRATEGIC PARTNER DEVELOPMENT MANAGER ,AWARE THAT RT SIDE WITH SWOLLEN NECK AND ALSO AWARE THAT STOOL WITH BLACK LIQUID AND URINE WONG PINK COLOR ,STSTED THAT ORDERED BIOETHIC COMETEE WITH FAMILY, WILL F\U
--- NOTE | 2018-07-31 18:13 | NUR ---
MECHANICAL ASSEMBLY TECHNICIAN NOTE CALLED RADIOLOGY. XRAY OF THE NECK WILL BE DONE TODAY. CONTINUE ON TUBE FEEDING. TOLERATING WELL. FLEXISEAL RECTAL TUBE CLEAN AND DRY. WILL CONTINUE TO MONITOR.
[2018-07-31 20:00] VITALS: BP 115/54
[2018-07-31] MEDS: PANTOPRAZOLE 40 MG VIAL IV SCH (23:05)
[2018-08-01] VITALS (7 sets, daily range): BP systolic 84–125; BP diastolic 40–53
[2018-08-01] MEDS: MEROPENEM 500 MG in IV NS 0.9% 100 ML IV SCH ×2 (05:26→17:34)
[2018-08-01] MEDS: BLOOD SUGAR DIAGNOSTIC 1 EACH STRIP IN SCH ×3 (05:27→17:45)
[2018-08-01] MEDS: INSULIN REGULAR, HUMAN 100 UNIT/ML 3 ML VIAL SQ PRN ×2 (05:37→17:46)
[2018-08-01 06:33] LABS: BASOPHILS % (AUTO) 0.6 % (0.0-2.0); EOSINOPHILS % (AUTO) 10.9 % (0.0-6.0); HEMATOCRIT 25 % (39-51); HEMOGLOBIN 8.3 g/dL (13.5-17.5); LYMPHOCYTES # (AUTO) 0.8 /CMM (0.8-4.8); LYMPHOCYTES % (AUTO) 8.4 % (20.0-44.0); MEAN CORPUSCULAR HGB CONC 33 g/dl (31.0-36.0); MEAN CORPUSCULAR VOLUME 101 fL (80-96); MONOCYTES # (AUTO) 0.9 /CMM (0.1-1.30); MONOCYTES % (AUTO) 9.8 % (2.0-12.0); NEUTROPHILS # (AUTO) 6.4 /CMM (1.8-8.9); NEUTROPHILS % (AUTO) 70.3 % (43.0-81.0); RED BLOOD CELL COUNT(AUTO) 2.47 MIL/uL (4.5-6.0)
[2018-08-01 06:39] LABS: PLATELET COUNT (AUTO) 50 /CMM (150-450)
[2018-08-01 06:53] LABS: BILIRUBIN,TOTAL 0.9 mg/dL (0.2-1.0); CALCIUM, SERUM 7.4 mg/dL (8.5-10.1); CREATININE 1.7 mg/dL (0.6-1.3); MAGNESIUM 1.8 mg/dL (1.8-2.4); POTASSIUM 3.7 mmol/L (3.5-5.1); TOTAL PROTEIN, SERUM 5.6 g/dL (6.4-8.2)
--- NOTE | 2018-08-01 06:53 | NUR ---
RN NOTES RECEIVED A CALL FROM LAB ABOUT PATIENT PLATELETS ARE 50. WILL ENDORSE IT TO AM SHIFT RN.
--- NOTE | 2018-08-01 07:30 | NUR ---
RN NOTE: RECEIVED PT IN THE BED WITH VENT-TRACH DEPENDENT SATURATING 100% WITH CURRENT VENT SETTING. ON SPORTS BROADCASTING INTERNSHIP SR HR= 86. HOB ELEVATED. ON CONTACT ISOLATION FOR CRE SPUTUM AND ESBL E.COLI ON BLOOD. ON GT FEEDING OF GLUCERNA 1.2 @ 20ML/HR AND TOLERATING WELL. ARAMIS MENA WAS AWARE THAT THE RECOMMENDATION OF THE DIETITIAN FOR THE TUBE FEEDING RATE INCREASE. PER SOLDERING MACHINE TENDER, OK TO FOLLOW RD RECOMMENDATION. ARAMIS MENA WAS ALSO AWARE OF THE PLATELET COUNT AND NO BLEEDING NOTED. ON FLEXI SEAL ON THE RECTAL AREA AND NOTED WITH NO LOOSE STOOL AT THIS TIME. STEELE CATHETER NOTED WITH YELLOW URINE DRAINING TO GRAVITY. (R) IJ WAS NOTED INTACT AND PATENT. AWAITING FOR THE X-RAY. CALL LIGHT WITHIN REACH. NEEDS ANTICIPATED.
[2018-08-01 07:38] LABS: ALBUMIN 1.1 g/dL (3.4-5.0)
--- NOTE | 2018-08-01 08:52 | NUR ---
instructional design manager Linette Wiggins informed LY to schedule a bioethics meeting with pt's daughter Moira for plan of care. LY called Moiar to inquire what day would work for her for a family conference. Moira informed LY she is available on Friday 08/04 at 10:30AM for a phone conference. LY informed Moira she will confirm the time with the doctor and call back. LY updated case aide Linette Wiggins.
[2018-08-01] MEDS: THERAHONEY GEL 1.5 OZ TUBE TP SCH (09:31)
[2018-08-01] MEDS: Z GUARD REMEDY 2 OZ OINT TP SCH (09:32)
--- NOTE | 2018-08-01 17:20 | NUR ---
NO VENT CHANGES MADE. Addendum: 08/01/18 at 1721 by ANTONIO GILL RT Amended: Links added.
[2018-08-01] MEDS: GLUCERNA 1.2 1,000 ML BOTTLE GT PRN (18:49)
--- NOTE | 2018-08-01 18:50 | NUR ---
RN NOTE: INFORMED ARAMIS MENA RE: THE PATIENT'S GT FEEDING AND THAT PATIENT HAS BEEN TOLERATING IT WELL. TRUCK TECHNICIAN WITH ORDER, NOTED AND CARRIED OUT.
--- NOTE | 2018-08-01 19:36 | NUR ---
RN NOTE: PATIENT REMAINED ON SAME VENTILATOR SETTING AND GT FEEDING OF GLUCERNA 1.2 @55ML/HR AND TOLERATING WELL. REPORT GIVEN TO PM SHIFT NURSE FOR CONTINUITY OF CARE.
[2018-08-01] MEDS: PANTOPRAZOLE 40 MG VIAL IV SCH (21:43)
[2018-08-02] VITALS: BP 103/57
[2018-08-02] MEDS: BLOOD SUGAR DIAGNOSTIC 1 EACH STRIP IN SCH ×4 (01:11→18:01)
--- NOTE | 2018-08-02 02:26 | NUR ---
TELE-1/HEAD OF COMMISSION DEPARTMENT REPORT TO KIP FOR CONT OF CARE.
--- NOTE | 2018-08-02 02:37 | NUR ---
RN NOTES RECEIVED REPORT FROM CHAD STANLEY FOR LEENA
[2018-08-02 04:00] VITALS: BP 97/53
--- NOTE | 2018-08-02 04:48 | NUR ---
RT PT RECEIVED TRACHED ON [facility] VENT WITH NOTED SETTING. TRACH PATENT AND SECURE VIA TRACH TIES. ADULT PROBATION OFFICER NOTED. AMBU BAG AT [facility]. VENT TO RED OUTLET, ALARMS SET AND AUDIBLE. PT TOLERATING SETTING WELL. NO SOB OR RESP DISTRESS NOTED ON SHIFT. Addendum: 08/02/18 at 0451 by DENA LUNDBERG RT Amended: Links added.
[2018-08-02] MEDS: MEROPENEM 500 MG in IV NS 0.9% 100 ML IV SCH ×2 (06:14→18:13)
[2018-08-02 06:15] LABS: BASOPHILS % (AUTO) 0.5 % (0.0-2.0); EOSINOPHILS % (AUTO) 8.1 % (0.0-6.0); HEMATOCRIT 24 % (39-51); HEMOGLOBIN 8.1 g/dL (13.5-17.5); LYMPHOCYTES # (AUTO) 0.6 /CMM (0.8-4.8); LYMPHOCYTES % (AUTO) 8.5 % (20.0-44.0); MEAN CORPUSCULAR HGB CONC 34 g/dl (31.0-36.0); MEAN CORPUSCULAR VOLUME 102 fL (80-96); NEUTROPHILS # (AUTO) 5.3 /CMM (1.8-8.9); NEUTROPHILS % (AUTO) 69.9 % (43.0-81.0); PLATELET COUNT (AUTO) 63 /CMM (150-450); RED BLOOD CELL COUNT(AUTO) 2.35 MIL/uL (4.5-6.0); WHITE BLOOD COUNT (AUTO) 7.5 K/uL (4.3-11.0)
[2018-08-02] MEDS: INSULIN REGULAR, HUMAN 100 UNIT/ML 3 ML VIAL SQ PRN ×2 (06:24→12:53)
[2018-08-02 06:35] LABS: CALCIUM, SERUM 7.1 mg/dL (8.5-10.1); CREATININE 1.7 mg/dL (0.6-1.3); MAGNESIUM 1.7 mg/dL (1.8-2.4); PHOSPHORUS 3.9 mg/dL (2.5-4.9); POTASSIUM 4.1 mmol/L (3.5-5.1)
--- NOTE | 2018-08-02 06:58 | NUR ---
RN NOTES PT IN STABLE CONDITION. NO ACUTE CHANGES THROUGHOUT SHIFT. ALL NEEDS ANTICIPATED. SAFETY MEASURES AND ASPIRATION PRECAUTION OBSERVED AT ALL TIMES. ENDORSED TO AM SHIFT RN FOR LEENA
[2018-08-02 07:19] LABS: BAND % (MANUAL) 1 % (0.0-5.0); EOSINOPHILS % (MANUAL) 6 % (0-4); LYMPHOCYTES % (MANUAL) 6 % (16-48); MONOCYTES % (MANUAL) 6 % (0-11.0); NEUTROPHILS % (MANUAL) 81 (42-76)
--- NOTE | 2018-08-02 07:37 | NUR ---
STRUCTURAL STEEL ERECTOR OPENING NOTES RECEIVED PT IN BED A/O X0 OBTUNDED ON MECH VENT WITH SETTINGS ORDERED, TOLERATING VENT NO SIGNS OR SYMPTOMS OF DISTRESS OR ACUTE PAIN SR ON TELE MONITOR IN THE 80'S . RIJ INTACT. GT RUNNING GLUCERNA 1.2 @55 ML/HR WITH NO SIGNS OR SYMPTOMS OF N/V/D . F/C PATENT AND INTACT DRAINING TEA COLORED URINE TO GRAVITY WITH FLEXI SEAL FOR GI DRAINING WATERY BLACK STOOL TO GRAVITY. HOB AT 30 DEGREES. SAFETY PRECAUTIONS IN PLACE BED IN LOW POSITION WILL CONTINUE TO MONITOR.
[2018-08-02 08:00] VITALS: BP 103/50
[2018-08-02] MEDS: THERAHONEY GEL 1.5 OZ TUBE TP SCH (08:26)
[2018-08-02] MEDS: Z GUARD REMEDY 2 OZ OINT TP SCH (08:27)
[2018-08-02] MEDS ORDERED: Magnesium 1GM/D5W 100ML PREMIX 100 ML IV SCH (11:54)
[2018-08-02 12:00] VITALS: BP_SYST 104; BP_SYST 105; BP_DIAS 49; BP_DIAS 70
[2018-08-02] MEDS: PROSOURCE / PROSTAT (PYXIS) 30 ML UDC GT SCH (12:52)
[2018-08-02 16:00] VITALS: BP 101/44
[2018-08-02] MEDS: GLUCERNA 1.2 1,000 ML BOTTLE GT PRN (18:13)
--- NOTE | 2018-08-02 19:22 | NUR ---
HAND SEWER SHOES CLOSING NOTES BEDSIDE REPOST GIVEN PT IN BED A/O X0 OBTUNDED ON MECH VENT WITH SETTINGS ORDERED, TOLERATING VENT NO SIGNS OR SYMPTOMS OF DISTRESS OR ACUTE PAIN SR ON TELE MONITOR IN THE 80'S .WOUND TREATMENT DONE TOLERATED RIJ INTACT. GT RUNNING GLUCERNA 1.2 @55 ML/HR WITH NO SIGNS OR SYMPTOMS OF N/V/D . F/C PATENT AND INTACT DRAINING TEA COLORED URINE TO GRAVITY WITH FLEXI SEAL FOR GI DRAINING WATERY BLACK STOOL TO GRAVITY. HOB AT 30 DEGREES. SAFETY PRECAUTIONS IN PLACE BED IN LOW POSITION LEENA
[2018-08-02 20:00] VITALS: BP 114/50
[2018-08-02] MEDS ORDERED: ACETAMINOPHEN 650 MG/20.3 ML UDC GT ONE (20:30)
[2018-08-02] MEDS: PANTOPRAZOLE 40 MG VIAL IV SCH (21:51)
[2018-08-03] VITALS: BP_SYST 123; BP_SYST 92; BP_DIAS 48; BP_DIAS 61
[2018-08-03] MEDS: BLOOD SUGAR DIAGNOSTIC 1 EACH STRIP IN SCH ×5 (00:39→23:57)
[2018-08-03] MEDS: INSULIN REGULAR, HUMAN 100 UNIT/ML 3 ML VIAL SQ PRN ×3 (00:44→13:03)
[2018-08-03 04:00] VITALS: BP 102/53
[2018-08-03] MEDS: MEROPENEM 500 MG in IV NS 0.9% 100 ML IV SCH ×2 (05:09→18:29)
[2018-08-03 06:58] LABS: CALCIUM, SERUM 6.7 mg/dL (8.5-10.1); CREATININE 1.9 mg/dL (0.6-1.3); MAGNESIUM 1.9 mg/dL (1.8-2.4); POTASSIUM 4.2 mmol/L (3.5-5.1)
--- NOTE | 2018-08-03 07:00 | NUR ---
CIGAR HEAD STRINGER OPENING NOTES RECEIVED PT IN BED A/O X0 OBTUNDED ON MECH VENT WITH SETTINGS ORDERED, TOLERATING VENT NO SIGNS OR SYMPTOMS OF DISTRESS OR ACUTE PAIN SR ON TELE MONITOR IN THE 80'S . RIJ INTACT. GT RUNNING GLUCERNA 1.2 @55 ML/HR WITH NO SIGNS OR SYMPTOMS OF N/V/D . F/C PATENT AND INTACT DRAINING TEA COLORED URINE TO GRAVITY. HOB AT 30 DEGREES. SAFETY PRECAUTIONS IN PLACE BED IN LOW POSITION WILL CONTINUE TO MONITOR.
--- NOTE | 2018-08-03 07:10 | NUR ---
Received trach pt on a mechanical vent. Pt trach is secure. Vent is plugged into a red outlet, alarms are set and audible, and BMV is at bedside. Addendum: 08/03/18 at 0735 by NICHOLAS BOSTON RT Amended: Links added.
[2018-08-03 08:00] VITALS: BP 97/51
[2018-08-03] MEDS: PROSOURCE / PROSTAT (PYXIS) 30 ML UDC GT SCH (08:20)
[2018-08-03] MEDS: THERAHONEY GEL 1.5 OZ TUBE TP SCH (08:22)
[2018-08-03] MEDS: Z GUARD REMEDY 2 OZ OINT TP SCH (08:22)
[2018-08-03 12:00] VITALS: BP 98/56
[2018-08-03 16:00] VITALS: BP 105/52
--- NOTE | 2018-08-03 19:27 | NUR ---
DENTAL MANAGER CLOSING NOTES BEDSIDE REPOST GIVEN PT IN BED A/O X0 OBTUNDED ON MECH VENT WITH SETTINGS ORDERED, TOLERATING VENT NO SIGNS OR SYMPTOMS OF DISTRESS OR ACUTE PAIN SR ON TELE MONITOR IN THE 80'S .WOUND TREATMENT DONE TOLERATED RIJ INTACT. GT RUNNING GLUCERNA 1.2 @55 ML/HR WITH NO SIGNS OR SYMPTOMS OF N/V/D . F/C PATENT AND INTACT DRAINING TEA COLORED URINE TO GRAVITY WITH FLEXI SEAL FOR GI DRAINING YELLOW LOOSE STOOL RAJESH MARTINEZ NP TRYING TO CONTACT MELY NUÑEZ FOR PHONE CONSULT IN REGARDS TO PATIENTS. HOB AT 30 DEGREES. SAFETY PRECAUTIONS IN PLACE BED IN LOW POSITION LEENA
--- NOTE | 2018-08-03 19:33 | NUR ---
RT PT RECEIVED TRACHED ON [facility] VENT ON CHARTED SETTINGS. NO SIGNS OF RESP DISTRESS NOTED. AIRWAY PATENT AND SECURED. BOOT TURNER CHECKED. PT SUCTIONED. AMBUBAG AND BACK UP TRACH AT BEDSIDE. VENT CONNECTED TO RED OUTLET. WILL CONT TO MONITOR. Addendum: 08/03/18 at 1936 by MARGARET JIMENEZ RT Amended: Links added.
[2018-08-03 20:00] VITALS: BP 102/48
--- NOTE | 2018-08-03 20:00 | NUR ---
RN INITIAL NOTES RECEIVED PT IN BED A/O X0 OBTUNDED ON MECH VENT WITH SETTINGS ORDERED, TOLERATING VENT NO SIGNS OR SYMPTOMS OF DISTRESS OR ACUTE PAIN SR ON TELE MONITOR IN THE 80'S . RIJ INTACT. GT RUNNING GLUCERNA 1.2 @55 ML/HR WITH 0 RESIDUAL . F/C PATENT AND INTACT DRAINING TO GRAVITY. FLEXI SEAL IN PLACE. HOB AT 30 DEGREES. SAFETY PRECAUTIONS IN PLACE, BED IN LOW POSITION WILL CONTINUE TO MONITOR.
[2018-08-03] MEDS: PANTOPRAZOLE 40 MG VIAL IV SCH (21:46)
[2018-08-04] VITALS (9 sets, daily range): BP systolic 90–123; BP diastolic 47–61
[2018-08-04] MEDS: GLUCERNA 1.2 1,000 ML BOTTLE GT PRN (06:07)
[2018-08-04] MEDS: MEROPENEM 500 MG in IV NS 0.9% 100 ML IV SCH (06:07)
[2018-08-04] MEDS: BLOOD SUGAR DIAGNOSTIC 1 EACH STRIP IN SCH ×2 (06:11→11:51)
--- NOTE | 2018-08-04 06:37 | NUR ---
RN CLOSING NOTES PT IN BED A/O X0 OBTUNDED ON MECH VENT WITH SETTINGS ORDERED, TOLERATING VENT NO SIGNS OR SYMPTOMS OF DISTRESS OR ACUTE PAIN SR ON TELE MONITOR IN THE 80'S .WOUND TREATMENT DONE TOLERATED RIJ INTACT. GT RUNNING GLUCERNA 1.2 @55 ML/HR WITH NO SIGNS OR SYMPTOMS, 0 RESIDUAL . F/C PATENT AND INTACT DRAINING TEA COLORED URINE TO GRAVITY WITH FLEXI SEAL FOR GI DRAINING WATERY BLACK STOOL TO GRAVITY. HOB AT 30 DEGREES. SAFETY PRECAUTIONS IN PLACE BED IN LOW POSITION. WILL ENDORSE TO AM RN FOR LEENA
[2018-08-04 07:30] LABS: BASOPHILS % (AUTO) 1.1 % (0.0-2.0); EOSINOPHILS % (AUTO) 15.3 % (0.0-6.0); HEMATOCRIT 22 % (39-51); HEMOGLOBIN 7.3 g/dL (13.5-17.5); LYMPHOCYTES # (AUTO) 0.6 /CMM (0.8-4.8); LYMPHOCYTES % (AUTO) 18.1 % (20.0-44.0); MEAN CORPUSCULAR HGB CONC 33 g/dl (31.0-36.0); MEAN CORPUSCULAR VOLUME 103 fL (80-96); MONOCYTES # (AUTO) 0.5 /CMM (0.1-1.30); MONOCYTES % (AUTO) 16.6 % (2.0-12.0); NEUTROPHILS # (AUTO) 1.5 /CMM (1.8-8.9); NEUTROPHILS % (AUTO) 48.9 % (43.0-81.0); RED BLOOD CELL COUNT(AUTO) 2.15 MIL/uL (4.5-6.0); WHITE BLOOD COUNT (AUTO) 3.1 K/uL (4.3-11.0)
[2018-08-04 07:32] LABS: PLATELET COUNT (AUTO) 39 /CMM (150-450)
--- NOTE | 2018-08-04 07:37 | NUR ---
RN OPENING NOTE PATIENT IN BED IN STABLE CONDITION. A/O X 1, OBTUNDED,OPEN EYES. NO SIGNS OF ACUTE DISTRESS. NO COMPLAIN OF PAIN OR DISCOMFORT. TRACH AND VENT DEPENDENT TOLERATING WELL. ON GTUBE FEEDING. HOB ELEVATED FOR ASPIRATION PRECAUTION. ALL NEEDS ATTENDED TO. CALL LIGHT WITHIN REACH. WILL CONTINUE TO MONITOR TO ENSURE SAFETY.
[2018-08-04 07:52] LABS: CALCIUM, SERUM 7.7 mg/dL (8.5-10.1); CREATININE 1.8 mg/dL (0.6-1.3); MAGNESIUM 1.9 mg/dL (1.8-2.4); PHOSPHORUS 3.9 mg/dL (2.5-4.9); POTASSIUM 4.3 mmol/L (3.5-5.1)
[2018-08-04] MEDS: THERAHONEY GEL 1.5 OZ TUBE TP SCH (08:12)
[2018-08-04] MEDS: Z GUARD REMEDY 2 OZ OINT TP SCH (08:13)
[2018-08-04] MEDS: PROSOURCE / PROSTAT (PYXIS) 30 ML UDC GT SCH (08:44)
[2018-08-04 09:20] LABS: BAND % (MANUAL) 6 % (0.0-5.0); EOSINOPHILS % (MANUAL) 26 % (0-4); LYMPHOCYTES % (MANUAL) 13 % (16-48); MONOCYTES % (MANUAL) 13 % (0-11.0); NEUTROPHILS % (MANUAL) 42 (42-76)
--- NOTE | 2018-08-04 11:01 | NUR ---
RN NOTES SPOKE WITH DR NICHOLSON AND RELAYED PATIENT PLATELETS 39L, PER DR NICHOLSON NO TRANSFUSION AT THIS TIME, CONTINUE TO MONITOR FOR S/S OF BLEEDING. ALSO DR NICHOLSON MADE AWARE REGARDING ETHICS COMMITTEE SCHEDULED TODAY, PER DR NICHOLSON TO CALL THE DAUGHTER MELY AND SCHEDULE APPT OVER PHONE FOR BIO ETHICS COMMITTEE MEETING. PER DR NICHOLSON SHE WILL GIVE CALL WHEN SHE DOES ROUNDS.
--- NOTE | 2018-08-04 13:00 | NUR ---
RN NOTES SEEN BY DR NICHOLSON AND DR NICHOLSON SPOKE WITH DAUGHTER HANH, PER HANH AGREE TO CHANGE PATIENT'S CODE STATUS TO COMFORT MEASURES. WILL EXTUBATE ONCE, FAMILY VISIT THE PATIENT.
--- NOTE | 2018-08-04 13:54 | NUR ---
RT NOTE RECEIVED PT MECHANICALLY VENTILATED VIA PORTEX 7 CUFFED TRACHEOSTOMY TUBE. CUFF INFLATED. TRACH TUBE MIDLINE AND SECURE. VENTILATOR SETTINGS PRESCRIBED. ALARMS SET PER PROTOCOL AND AUDIBLE. VENT PLUGGED IN TO RED OUTLET. AMBU BAG AT BED SIDE. NO DISTRESS NOTED. Addendum: 08/04/18 at 1356 by PILO SUNG RT Amended: Links added.
[2018-08-04] MEDS ORDERED: MORPHINE SULFATE INJ 2 MG/ML DISP.SYRIN IV PRN ×2 (14:00→14:30)
[2018-08-04] MEDS ORDERED: SCOPOLAMINE HBR 1 EA PATCH.TD72 TD SCH (14:00)
[2018-08-04] MEDS ORDERED: HYDROMORPHONE INJ 0.5 MG/0.5 ML SYRINGE IV PRN (14:30)
[2018-08-04] MEDS ORDERED: MEROPENEM 500 MG in IV NS 0.9% 100 ML IV SCH (18:00)
--- NOTE | 2018-08-04 18:15 | NUR ---
RN NOTES FAMILY AT BEDSIDE AND PER FAMILY THEY ARE READY FOR PATIENT TO BE EXTUBATED, PAGED R.T.
--- NOTE | 2018-08-04 18:30 | NUR ---
RN NOTES RECEIVED MORPHINE DRIP BAG FROM EYE TECHNICIAN OMAR. CALLED NURSING MERCHANT MARINER FOR POSITION CLASSIFICATION MANAGER PUMP.
--- NOTE | 2018-08-04 18:50 | NUR ---
RN NOTES STILL WAITING FOR TREE INSPECTOR PUMP.
[2018-08-04] MEDS ORDERED: KEY,NONCONTROL,TO KEEP IN PYXI 1 EA MC ONE (18:56)
[2018-08-04] MEDS ORDERED: DC PROPOFOL WHEN EXTUBATED XX PRN (19:00)
--- NOTE | 2018-08-04 19:00 | NUR ---
RN CLOSING NOTE PATIENT IN BED, OBTUNDED, EYES OPEN. NO SIGNS OF ACUTE DISTRESS AT THIS TIME. NO S/S OF PAIN OR DISCOMFORT. FAMILY AT BEDSIDE. REPORT GIVEN TO RN YURI AND ENDORSE MORPHINE BAG DRIP OF 250ML WITH BELT CONVEYOR DRIER PUMP. MORPHINE DRIP NOT SET YET, AWAITING FOR BELT CONVEYOR DRIER PUMP JEREZ. CHARGE NURSE NOTIFY. ALL NEEDS ATTENDED TO. ENDORSE TO NEXT SHIFT FOR CONTINUITY OF CARE.
--- NOTE | 2018-08-04 20:15 | NUR ---
RN NOTES RECEIVED PATIENT IN BED WITH EYES CLOSED. NOTED LABORED BREATHING USING ACCESSORY MUSCLES. OBTUNDED, PALE COLOR OF SKIN. FAMILY AT BEDSIDE. STARTED ADMINISTRATION OF MORPHINE 1.5MG/HR AT 1930. NO ADVERSE EFFECT NOTED. VITAL SIGNS WNL. CALLED RT TO INFORM THAT SET UP FOR MORPHINE HAS BEEN STARTED. REPOSITION FOR COMFORT. KEPT CLEAN AND DRY. Addendum: 08/04/18 at 2011 by YURI GOULD RN RT TURNED OFF VENTILLATOR AT 2029. ADMINISTERED 5 LITERS OF O2 VIA MASK. NO DISTRESS NOTED. O2 STILL AT 100%. WILL CONTINUE TO MONITOR
[2018-08-05] VITALS: BP 92/50
[2018-08-05 04:00] VITALS: BP 112/47
--- NOTE | 2018-08-05 06:42 | NUR ---
RN CLOSING NOTES PATIENT'S VITAL SIGNS REMAINS STABLE. NO DISTRESS NOTED EVEN AFTER TURNING OFF VENTILLATOR SUPPORT. NO FACIAL GRIMACE. NOTED BLOOD ON THE MOUTH. PATIENT HAS BEEN BITING TONGUE AND LIPS. BITE BLOCK REQUESTED FROM RT. SUCTIONED SMALL AMOUNT OF SEMI LOOSE SECRETION. KEPT CLEAN AND DRY. WILL ENDORSE TO NEXT SHIFT FOR CONTINUITY OF CARE.
--- NOTE | 2018-08-05 07:30 | NUR ---
RN OPENING NOTE: RECEIVED BEDSIDE REPORT FROM MIMI WELCH AND PATIENT WAS NOTED OBTUNDED WITH EYES CLOSED. RESPIRATION EVEN AND UNLABORED WITH SATURATION OF 100% WITH O2 @5L/MIN VIA MASK PLACED ON THE TRACH SITE. ON MOUNTAIN SERVICES MANAGER SR HR= 96. NO SIGN AND SYMPTOM OF DISCOMFORT OR PAIN. HOB ELEVATED. GT SITE NOTED CLEAN AND INTACT AND WILL BE FLUSHED WITH 150 ML OF WATER Q6HR PER MD ORDER. ON CONTACT ISOLATION FOR ESBL URINE AND DROPLET PRECAUTION FOR CRE SPUTUM. (R) IJ SITE NOTED INTACT AND PATENT AND WAS INFUSING MORPHINE 1.5MG/HR FOR COMFORT MEASURES. CALL LIGHT WITHIN REACH. NEEDS ANTICIPATED.
[2018-08-05 08:00] VITALS: BP 85/42
[2018-08-05] MEDS: THERAHONEY GEL 1.5 OZ TUBE TP SCH (08:49)
[2018-08-05] MEDS: Z GUARD REMEDY 2 OZ OINT TP SCH (08:50)
--- NOTE | 2018-08-05 11:10 | NUR ---
RN NOTE: RECEIVED A PHONE CALL FROM JOAQUIN BOONE AND WAS GIVEN AN UPDATE RE: THE PATIENT'S CONDITION. PATIENT REMAINED ON COMFORTABLE CONDITION AND NOTED WITH MORPHINE DRIP.
[2018-08-05 12:00] VITALS: BP 84/61
[2018-08-05 16:00] VITALS: BP 86/71
--- NOTE | 2018-08-05 16:00 | NUR ---
RN NOTE: RECEIVED A CALL FROM GOYO CORRAL AND ACCORDING TO HER SHE CLARIFIED THE MORPHINE DRIP ORDER TO DR. NICHOLSON. NEW ORDER FOR THE MORPHINE DRIP WAS ORDERED. ACKNOWLEDGED AND NOTED. PATIENT REMAINED COMFORTABLE AT THIS TIME.
--- NOTE | 2018-08-05 19:15 | NUR ---
RN CLOSING NOTE: PATIENT REMAINED COMFORTABLE AND NOTED WITH O2 SATURATION OF 85%. BREATHING EVENLY. ON MORPHINE DRIP 3.5MG/HR ON THE (R) IJ. HOB ELEVATED. REMAINED ON CONTACT ISOLATION FOR ESBL URINE AND DROPLET PRECAUTION FOR CRE SPUTUM. BEDSIDE REPORT GIVEN TO PM SHIFT NURSE FOR CONTINUITY OF CARE INCLUDING THE CHANGE OF THE MORPHINE BAG.
[2018-08-05 20:00] VITALS: BP_SYST 62; BP_SYST 82; BP_DIAS 18
--- NOTE | 2018-08-05 20:00 | NUR ---
CONTACT LENS INSPECTOR NOTE PT IN BED OBTUNDED. COMFORT CARE. ON O2 8L VIA MASK ON TRACH SITE. RESP 10 SLIGHTLY LABORED. KEPT HOB ELEVATED. PT ON ON SITE SOIL EVALUATOR CONTINUES MORPHINE DRIP AT 3.5 MG/HR INFUSING AT [facility] TRIPLE LUMEN CATH. CHANGED THE BAG ALSO WHICH WAS 24H PAST. ON TELE MONITOR S T HR 109. FLEXISEAL INTACT AND PATENT DRAINING LIQUIDY BROWNISH STOOL. F/C INTACT AND PATENT DRAINING DARK YELLOWISH URINE. REPOSITION HIM FOR SKIN AND COMFORT MEASURES. ORAL CARE GIVEN. SIDE RAILS UP X 3 CALL LIGHT WITHIN REACH. CONTINUE TO MONITOR HIM.
[2018-08-06] VITALS: BP 48/16
--- NOTE | 2018-08-06 | NUR ---
NEONATAL SPECIALIST NOTE PT IN BED OBTUNDED. RESP 10. UNABLE TO READ O2 SAT. B/P IS ALSO LOW. CONTINUE TO MONITOR. ON TELE MONITOR SR 86.
--- NOTE | 2018-08-06 | NUR ---
WOOL GRADER NOTE UNABLE TO TAKE WEEKLY PICTURES AT THIS TIME DUE TO PT'S CONDITION.
--- NOTE | 2018-08-06 01:10 | NUR ---
ADMINISTRATIVE LIAISON NOTE ANCHOR TACK PULLER INFORMED ME THAT HR WENT DOWN TO 40. WENT TO CHECK THE PT, NOTED CYANOSIS ON BILATERAL HANDS. UNABLE TO CHECK O2 SAT. BREATHING IS LABORED. KEPT HOB ELEVATED. PT IS ON COMFORT MEASURES ONLY. ORAL CARE GIVEN. CONTINUE TO MONITOR. REPOSITION THE PT.
--- NOTE | 2018-08-06 01:28 | NUR ---
TELE/RN NOTES MIMI DOTSON PRIMARY NURSE AT BEDSIDE. NOTED PT WITH NO BREATHING, NO PULSE, ASYSTOLE ON TELEMONITOR, PUPIL DILATED, NO BP NOTED, BILATERAL HANDS CYANOTIC. PT IS PRONOUNCED BY MIMI DOTSON AND MIMI SHIN. CHARGE NURSE, ANALI MADE AWARE.
--- NOTE | 2018-08-06 01:37 | NUR ---
0137 CALLED ADMITTING DEPT. TO NOTIFY C/O FRANKLIN Wyatt
--- NOTE | 2018-08-06 01:43 | NUR ---
0143 SPOKE WITH ARAMIS CARRIZALES AND NOTIFIED HIM OF PATIENT'S .
--- NOTE | 2018-08-06 01:45 | NUR ---
AQUATIC LABORER NOTE CARE GIVEN AT THIS TIME. CHARGE NURSE ANALI MENDOZA THE NURSING LIFT SLAB OPERATOR AND FAMILY REGARDING PT EARLIER.
--- NOTE | 2018-08-06 01:50 | NUR ---
0150 CALLED PATIENT'S DAUGHTER MELY AND NOTIFIED HER OF PATIENT'S . NOTIFIED HER THAT BODY CAN BE KEPT IN THE UNIT FOR 3 HOURS AND ASKED HER IF THEY ARE COMING TO VIEW BODY, SHE SAID SHE WILL CALL BACK WITH MORTUARY AND IF THEY ARE COMING.
--- NOTE | 2018-08-06 01:53 | NUR ---
0153 CALLED [facility] TO NOTIFY PATIENT'S , SPOKE WITH FRANCES, REFERRAL NUMBER [id number] OBTAINED
--- NOTE | 2018-08-06 02:50 | NUR ---
EXERCISE TEACHER NOTE FAMILY ARRIVED AND GRIEVING AT THE BED SIDE. PRIVACY PROVIDED.
--- NOTE | 2018-08-06 04:15 | NUR ---
FABRIC LAY OUT WORKER NOTE MORTUARY ARRIVED TO PICKUP THE BODY. FAMILY STILL AT BED SIDE. DTR HANH SIGN THE RECORD OF DOCUMENT. BELONGING SHEET ALSO SIGNED. ONE BLANKET OF THE PT GIVEN BACK TO THEM.
--- NOTE | 2018-08-06 04:30 | NUR ---
RENDERER NOTE MORTUARY TOOK THE BODY. FAMILY ALSO LEFT THE ROOM.
== END 2018-08-06 01:28 | disposition expired | DRG 720 ==
LOC: ER 11:55 → ICU 13:46 → TELE-TD 07-27 17:34 → TELE1 07-31 09:40
PROVIDERS: ADMIT Nurse Practitioner Acute Care; ATTEND Internal Medicine
PROC: B548ZZA Ultrasonography of Superior Vena Cava, Guidance (ICD-10-PCS; principal; 2018-07-21)
PROC: 5A1955Z Respiratory Ventilation, Greater than 96 Consecutive Hours (ICD-10-PCS; principal; 2018-07-21)
PROC: 02HV33Z Insertion of Infusion Device into Superior Vena Cava, Percutaneous Approach (ICD-10-PCS; principal; 2018-07-21)
PROC: 30233N1 Transfusion of Nonautologous Red Blood Cells into Peripheral Vein, Percutaneous Approach (ICD-10-PCS; 2018-07-23)
PROC: 30233R1 Transfusion of Nonautologous Platelets into Peripheral Vein, Percutaneous Approach (ICD-10-PCS; 2018-07-25)
DX: A41.9 Sepsis, unspecified organism (principal); D65 Disseminated intravascular coagulation [defibrination syndrome]; I21.A1 Myocardial infarction type 2; E43 Unspecified severe protein-calorie malnutrition; J69.0 Pneumonitis due to inhalation of food and vomit; G93.41 Metabolic encephalopathy; J90 Pleural effusion, not elsewhere classified; J96.01 Acute respiratory failure with hypoxia; J15.6 Pneumonia due to other Gram-negative bacteria; Z51.5 Encounter for palliative care; N17.0 Acute kidney failure with tubular necrosis; L89.103 Pressure ulcer of unspecified part of back, stage 3; L89.313 Pressure ulcer of right buttock, stage 3; L89.153 Pressure ulcer of sacral region, stage 3; L89.323 Pressure ulcer of left buttock, stage 3; Z99.11 Dependence on respirator [ventilator] status; R65.21 Severe sepsis with septic shock; Z93.0 Tracheostomy status; D53.9 Nutritional anemia, unspecified; B96.20 Unspecified Escherichia coli [E. coli] as the cause of diseases classified elsewhere; E87.0 Hyperosmolality and hypernatremia; E87.2 Acidosis; E86.0 Dehydration; E83.51 Hypocalcemia; F41.9 Anxiety disorder, unspecified; K70.30 Alcoholic cirrhosis of liver without ascites; Z86.73 Personal history of transient ischemic attack (TIA), and cerebral infarction without residual deficits; Z87.820 Personal history of traumatic brain injury; Z86.718 Personal history of other venous thrombosis and embolism; Z79.4 Long term (current) use of insulin; N39.0 Urinary tract infection, site not specified; Z16.12 Extended spectrum beta lactamase (ESBL) resistance; I12.9 Hypertensive chronic kidney disease with stage 1 through stage 4 chronic kidney disease, or unspecified chronic kidney disease; N18.9 Chronic kidney disease, unspecified; K43.9 Ventral hernia without obstruction or gangrene; K21.9 Gastro-esophageal reflux disease without esophagitis; E88.09 Other disorders of plasma-protein metabolism, not elsewhere classified; Z68.1 Body mass index [BMI] 19.9 or less, adult; R13.10 Dysphagia, unspecified; K52.9 Noninfective gastroenteritis and colitis, unspecified; J96.11 Chronic respiratory failure with hypoxia; E86.1 Hypovolemia; K73.9 Chronic hepatitis, unspecified; Z87.440 Personal history of urinary (tract) infections; B96.1 Klebsiella pneumoniae [K. pneumoniae] as the cause of diseases classified elsewhere; S91.302A Unspecified open wound, left foot, initial encounter; S91.301A Unspecified open wound, right foot, initial encounter; X58.XXXA Exposure to other specified factors, initial encounter; Y93.9 Activity, unspecified; Y92.129 Unspecified place in nursing home as the place of occurrence of the external cause; D75.89 Other specified diseases of blood and blood-forming organs; R93.1 Abnormal findings on diagnostic imaging of heart and coronary circulation; E11.22 Type 2 diabetes mellitus with diabetic chronic kidney disease; Z93.1 Gastrostomy status
CPT/HCPCS: 31720; 36415; 36600; 70360-TC; 71045-TC; 74150-TC; 80048-TC; 80053-TC; 80076-TC; 80202-TC; 81000-TC; 82248-TC; 82272-TC; 82550-TC; 82570-TC; 82803-TC; 82962-TC; 83605-TC; 83735-TC; 84100-TC; 84155-TC; 84300-TC; 84484-TC; 85025-TC; 85396; 85730-TC; 86850-TC; 86921-TC; 87040-TC; 87070-TC; 87081-TC; 87086-TC; 87186-TC; 87400; 93307-TC; 94002-TC; 94003-TC; 94760-TC; 94762-TC; 99082-TC; A4216; A4217; A4349; A6248; A6253; A6402; A6403; A7526; C1751; C9113; G0378; J1265; J1815; J1956; J2185; J2274; J2370; J3370; J3475; J3480; J3490; J7030; J7042; J7050; J7060; J7070; P9016-BL; P9034-BL